=== PATIENT | female | born 1950 | race Caucasian/White ===

== ENCOUNTER 2018-05-11 07:52 | Emergency (ER) | payer MEDICARE, OTHER ==
[~2018-05-11] VITALS: Ht 147.3 cm; Wt 106.1 kg
[~2018-05-11 07:52] MED LIST: ALBIPROI INH; ALBU3IS; ALBU3IS INH; ALBU90OI INH; CEPH500 PO; CINA30 PO; CLOBET30L TOP; CYAN100 PO; Culturelle1 CAP PO; DIPH50 PO; DOCU100 PO; ESOM20 PO; FERR325 PO; FLUSAL5005 IH; GLIM2 PO; GLIM4 PO; HYDACE5 PO; HYDR-86 PO; HYDR1TAB94 PO; INSDET100 SQ; INSR10I SC; INSUASPI; INSUASPI SC; LEVSOD75 PO; LOPE2C PO; MAGCHL64ER PO; METF500 PO; METF500C PO; METO5 PO; NYST100TC TOP; OMEP40CA12 PO; PENVK500 PO; Percocet 5-3251 EACH PO; Percocet 7.5-31 EACH PO; SENN187 PO; SIMV40 PO; SIMV80 PO; SULTRIDS PO; Ultram50 MG PO; VALS80 PO; VICODIN 5-3001 EACH PO
[2018-05-11 10:07] LABS: BASOPHILS ABSOLUTE AUTO 0.04 K/mm3 (0.00-0.23); BASOPHILS PERCENT AUTO 0 % (0-2); EOSINOPHILS ABSOLUTE AUTO 0.06 K/mm3 (0.00-0.68); EOSINOPHILS PERCENT AUTO 1 % (0-6); Hematocrit 53.1 % (33.0-51.0); Hemoglobin 15.2 g/dL (11.5-16.0); IMMATURE GRAN ABSOLUTE AUTO 0.07 K/mm3 (0.00-0.10); IMMATURE GRAN PERCENT AUTO 1 % (0-1); LYMPHOCYTES PERCENT AUTO 5 % (21-46); MONOCYTES PERCENT AUTO 9 % (4-13); Mean Corpuscular HGB 25.7 pg (26.0-34.0); Mean Corpuscular HGB Conc 28.6 g/dL (31.5-36.5); Mean Corpuscular Volume 90 fL (80-100); Mean Platelet Volume 10.9 fL (9.1-12.4); NEUTROPHILS ABSOLUTE AUTO 10.88 K/mm3 (1.96-9.15); NEUTROPHILS PERCENT AUTO 85 % (41-73); Platelet Count 256 K/mm3 (150-400); RDW Coefficient Variation 16.3 % (11.7-14.2); RDW Standard Deviation 53.5 fL (35.1-46.3); Red Blood Cell Count 5.91 M/mm3 (3.80-5.20); White Blood Cell Count 12.75 K/mm3 (4.00-11.30)
[2018-05-11 10:25] LABS: Alanine Aminotransfer (ALT/SGP 11 U/L (12-78); Albumin, Blood 2.4 g/dL (3.4-5.0); Albumin/Globulin Ratio 0.6 (0.8-1.8); Alk Phos 107 U/L (50-136); Anion Gap 6 mmol/L (6-16); Aspartate Aminotrans (AST/SGOT 18 U/L (12-37); Bilirubin, Total 1.3 mg/dL (0.1-1.0); Blood Urea Nitrogen 12 mg/dL (8-24); Bun/Creatinine Ratio 14.5 (12.0-20.0); CO2, Blood 31 mmol/L (21-32); Calcium, Blood 9.2 mg/dL (8.5-10.1); Chloride, Blood 101 mmol/L (98-108); Creatinine, Blood 0.83 mg/dL (0.40-1.00); Globulin, Blood 4.3 g/dL (2.2-4.0); Glomerular Filtration Rate >60 (60-); Glucose, Blood 130 mg/dL (70-99); Potassium, Blood 4.4 mmol/L (3.5-5.5); Sodium, Blood 138 mmol/L (136-145); Total Protein, Blood 6.7 g/dL (6.4-8.2)
[2018-05-11] MEDS ORDERED: CEPH500 PO (11:52)
[2018-05-12] MEDS ORDERED: **INCOMPLETE MED REC (18:05)
[2018-05-12] MEDS ORDERED: Aspirin EC81 MG PO (18:47)
[2018-05-12] MEDS ORDERED: CEPH500 PO (18:51)
[2018-05-12] MEDS ORDERED: CHOL10002 PO (18:52)
[2018-05-12] MEDS ORDERED: FLUT1DIS8 INH (18:59)
[2018-05-12] MEDS ORDERED: HYDR-86 PO (19:11)
[2018-05-12] MEDS ORDERED: Hydrocortisone28 G1 TOP (19:13)
[2018-05-12] MEDS ORDERED: PANT40 PO (19:14)
[2018-05-12] MEDS ORDERED: MONT10T PO (19:16)
[2018-05-12] MEDS ORDERED: ALBU90OI61 INH (19:17)
[2018-05-12] MEDS ORDERED: Nystop60 GM TOP (19:19)
[2018-05-12] MEDS ORDERED: ALBU2.5V5 NEB (19:21)
[2018-05-12] MEDS ORDERED: BENZ100A PO (19:22)
[2018-05-12] MEDS ORDERED: LEVEMIR FL100 UNIT/1 SC (19:23)
[2018-05-12] MEDS ORDERED: INSDET100 PO (19:24)
[2018-05-12] MEDS ORDERED: Humalog100 UNIT/1 SC (19:24)
[2018-05-12] MEDS ORDERED: VITAMIN B-125000 MC2 PO (19:26)
== END 2018-05-11 14:09 | disposition home or self-care (01) ==
LOC: ER 07:52
PROVIDERS: Emergency Medicine
DX: M25.562 Pain in left knee (principal); L89.152 Pressure ulcer of sacral region, stage 2; S91.302A Unspecified open wound, left foot, initial encounter; S91.301A Unspecified open wound, right foot, initial encounter; I87.8 Other specified disorders of veins; L03.312 Cellulitis of back [any part except buttock and flank]; W05.0XXA Fall from non-moving wheelchair, initial encounter; E11.9 Type 2 diabetes mellitus without complications; J44.9 Chronic obstructive pulmonary disease, unspecified; I10 Essential (primary) hypertension; I50.9 Heart failure, unspecified; E03.9 Hypothyroidism, unspecified; Z88.1 Allergy status to other antibiotic agents; Z91.048 Other nonmedicinal substance allergy status; Z79.899 Other long term (current) drug therapy; Z79.82 Long term (current) use of aspirin; Z79.4 Long term (current) use of insulin
CPT/HCPCS: 36415; 72100; 72193; 73562-LT; 80053; 85025; 99284-25; Q9967

== ENCOUNTER 2018-05-12 15:15 | Observation (INO) | payer MEDICARE, OTHER ==
[~2018-05-12] VITALS: Ht 149.9 cm; Wt 112.0 kg
[2018-05-12] MEDS ORDERED: **INCOMPLETE MED REC (18:05)
[2018-05-12] MEDS ORDERED: Aspirin EC81 MG PO (18:47)
[2018-05-12] MEDS ORDERED: CEPH500 PO (18:51)
[2018-05-12] MEDS ORDERED: CHOL10002 PO (18:52)
[2018-05-12] MEDS ORDERED: FLUT1DIS8 INH (18:59)
[2018-05-12] MEDS ORDERED: HYDR-86 PO (19:11)
[2018-05-12] MEDS ORDERED: Hydrocortisone28 G1 TOP (19:13)
[2018-05-12 19:14] LABS: BASOPHILS ABSOLUTE AUTO 0.02 K/mm3 (0.00-0.23); BASOPHILS PERCENT AUTO 0 % (0-2); EOSINOPHILS ABSOLUTE AUTO 0.36 K/mm3 (0.00-0.68); EOSINOPHILS PERCENT AUTO 4 % (0-6); Hematocrit 48.7 % (33.0-51.0); Hemoglobin 14.3 g/dL (11.5-16.0); IMMATURE GRAN ABSOLUTE AUTO 0.04 K/mm3 (0.00-0.10); IMMATURE GRAN PERCENT AUTO 0 % (0-1); LYMPHOCYTES ABSOLUTE AUTO 0.63 K/mm3 (0.84-5.20); LYMPHOCYTES PERCENT AUTO 6 % (21-46); MONOCYTES ABSOLUTE AUTO 0.93 K/mm3 (0.16-1.47); MONOCYTES PERCENT AUTO 9 % (4-13); Mean Corpuscular HGB 25.4 pg (26.0-34.0); Mean Corpuscular HGB Conc 29.4 g/dL (31.5-36.5); Mean Platelet Volume 10.3 fL (9.1-12.4); NEUTROPHILS ABSOLUTE AUTO 8.19 K/mm3 (1.96-9.15); NEUTROPHILS PERCENT AUTO 81 % (41-73); Platelet Count 229 K/mm3 (150-400); RDW Coefficient Variation 16.6 % (11.7-14.2); RDW Standard Deviation 50.6 fL (35.1-46.3); Red Blood Cell Count 5.62 M/mm3 (3.80-5.20); White Blood Cell Count 10.17 K/mm3 (4.00-11.30)
[2018-05-12] MEDS ORDERED: PANT40 PO (19:14)
[2018-05-12] MEDS ORDERED: MONT10T PO (19:16)
[2018-05-12 19:17] LABS: Mean Corpuscular Volume 87 fL (80-100)
[2018-05-12] MEDS ORDERED: ALBU90OI61 INH (19:17)
[2018-05-12] MEDS ORDERED: Nystop60 GM TOP (19:19)
[2018-05-12] MEDS ORDERED: ALBU2.5V5 NEB (19:21)
[2018-05-12] MEDS ORDERED: BENZ100A PO (19:22)
[2018-05-12] MEDS ORDERED: LEVEMIR FL100 UNIT/1 SC (19:23)
[2018-05-12] MEDS ORDERED: Humalog100 UNIT/1 SC (19:24)
[2018-05-12] MEDS ORDERED: INSDET100 PO (19:24)
[2018-05-12] MEDS ORDERED: VITAMIN B-125000 MC2 PO (19:26)
[2018-05-12 19:42] LABS: Alanine Aminotransfer (ALT/SGP 12 U/L (12-78); Albumin, Blood 2.3 g/dL (3.4-5.0); Albumin/Globulin Ratio 0.5 (0.8-1.8); Alk Phos 94 U/L (50-136); Anion Gap 4 mmol/L (6-16); Aspartate Aminotrans (AST/SGOT 15 U/L (12-37); Blood Urea Nitrogen 11 mg/dL (8-24); Bun/Creatinine Ratio 14.9 (12.0-20.0); CO2, Blood 33 mmol/L (21-32); Calcium, Blood 8.6 mg/dL (8.5-10.1); Chloride, Blood 99 mmol/L (98-108); Creatinine, Blood 0.74 mg/dL (0.40-1.00); Globulin, Blood 4.2 g/dL (2.2-4.0); Glomerular Filtration Rate >60 (60-); Glucose, Blood 109 mg/dL (70-99); Magnesium, Blood 1.7 mg/dL (1.6-2.4); Potassium, Blood 4.3 mmol/L (3.5-5.5); Sodium, Blood 136 mmol/L (136-145); Total Protein, Blood 6.5 g/dL (6.4-8.2)
[2018-05-13 04:53] LABS: Hematocrit 49.4 % (33.0-51.0); Hemoglobin 13.8 g/dL (11.5-16.0); Mean Corpuscular HGB Conc 27.9 g/dL (31.5-36.5); Mean Platelet Volume 10.3 fL (9.1-12.4); Platelet Count 216 K/mm3 (150-400); RDW Coefficient Variation 16.1 % (11.7-14.2); RDW Standard Deviation 53.1 fL (35.1-46.3); Red Blood Cell Count 5.51 M/mm3 (3.80-5.20); White Blood Cell Count 8.82 K/mm3 (4.00-11.30)
[2018-05-13 05:03] LABS: Mean Corpuscular Volume 90 fL (80-100)
[2018-05-13 05:17] LABS: Anion Gap 4 mmol/L (6-16); Blood Urea Nitrogen 11 mg/dL (8-24); Bun/Creatinine Ratio 15.8 (12.0-20.0); CO2, Blood 34 mmol/L (21-32); Calcium, Blood 8.9 mg/dL (8.5-10.1); Chloride, Blood 103 mmol/L (98-108); Glomerular Filtration Rate >60 (60-); Glucose, Blood 99 mg/dL (70-99); Potassium, Blood 4.4 mmol/L (3.5-5.5); Sodium, Blood 141 mmol/L (136-145)
--- NOTE | 2018-05-13 07:32 | NUR ---
stated she did not want to be here, call light in reach, saline locked, 4L via [place], walking ronds completed with day shift
--- NOTE | 2018-05-13 08:24 | NUR ---
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 WILL ATTEMPT TO REPOSITION AFTER BREAKFAST.
--- NOTE | 2018-05-13 09:00 | NUR ---
PT REFUSING TURNS AND REPOSITIONING OTHER THAN PULLING HER UP IN BED. REFUSING PILLOWS TO BE PLACED UNDER LEFT OR RIGHT SIDE; REFUSING USE OF LIFT. WILL CONTINUE TO ATTEMPT TO ENCOURAGE ACTIVITY.
--- NOTE | 2018-05-13 17:33 | NUR ---
PT REFUSED POSITION CHANGE. ABLE TO GET A PILLOW UNDER ONE LEG. PT TEACHING ABOUT IMPORTANCE OF CHANGING POSITION TO PREVENT FURTHER PROGRESS OF DECUBITUS. PT AGAIN DECLINED TO BE MOVED.
--- NOTE | 2018-05-13 18:14 | NUR ---
SHIFT SUMMARY OX3; MORBID OBESITY. REFUSING TURNS AT TIMES. INCONTINENT. DECUBITUS TO SACRUM MEPILEX IN PLACE. EATING AND DRINKING WELL INDEPENDENTLY. LYMPHADEMA AND CELLULITIS TO BLE. CBG'S AC AND HS. AWAITING POSSIBLE SNIF PLACEMENT.
--- NOTE | 2018-05-14 05:36 | NUR ---
PT CHANGED AND CLEANED. PT REPOSITIONED. PT COMPLAINED OF BACK PAIN DURING ATTENDS CHANGE AND REPOSITIONING.
--- NOTE | 2018-05-14 07:25 | NUR ---
a+o grummpy, took medication as directed, pain controlled with medication as much as possible, call light is in reach, 3L via nc, walking rounds completed with returning day staff
--- NOTE | 2018-05-14 17:03 | NUR ---
Liberty firmly believs she will heal from her illness. She recently lost her care-provider who was her best-friend due to argument. "She was not taking very good care of me." Liberty admits that some ADLs are becoming difficult for her. She continues to cook for herself, "but I keep burning myself because the stove is too high for me." She is active in her jaspreet community, but guards her solitude and privacy. She speaks to her son occasionally, but he has not seen his mom for 18 years. This is a source of dissapointment for her. She tells me she is "sick" of people telling her what she needs to do, but is considering moving to [facility], "But its MY idea." She is fiercly independant. She appeared to enjoy companionship and prayer. I placed a T/C to her jehovah's witness at her request. They are availbale to support her emotionally/spiritually. Liberty travels to [facility] 2x weekly for treatment. She does not mind this as it gives her something to do. She appears to have accepted her limitations. Coding Compliance Auditor services will remain available.
--- NOTE | 2018-05-14 18:35 | NUR ---
SHIFT SUMMARY OX3; DROWSY AT TIMES BUT EASILY AROUSED BY VERBAL STIMULI. REFUSES ATTENDS CHANGE AND POSITION CHANGES INTERMITTENTLY. MULTIPLE SKIN FOLDS TO BREAST AND AXILLA, PANUS WITH RAW/REDNESS NYSTATIN APPLIED. NEW MEPILEX APPLIED TO SACRUM. STRICT TURN Q2 DUE TO DECUBITUS ULCER TO SACRUM. DRSG CHANGE COMPLETED TO BLE. NEW PICTURES PLACED IN CHART. EATING AND DRINKING WELL. NO SLIDING SCALE COVERAGE NEEDED THIS SHIFT. POSSIBLE PLACEMENT TOMORROW.
--- NOTE | 2018-05-15 07:54 | NUR ---
a+o, wants own way, conceded she may have to go to [facility], zana locked, 2L via [place], call light in reach, walking rounds completed with day shift
--- NOTE | 2018-05-15 07:57 | NUR ---
CARE MANAGEMENT ADVISED PATIENT WILLING TO GO TO [place].
--- NOTE | 2018-05-15 10:09 | NUR ---
TALKED TO ABOUT BLD SUGAR OF 82 . STS GIVE 40 UNITS OF LANTUS INSTEAD OF 60 UNITS.
--- NOTE | 2018-05-15 11:59 | NUR ---
BLD SUGAR 76, PATIENT SLEEPY. GIVEN O.J. WHICH SHE DRINKS 8 OZ. ALSO GIVEN PEANUT BUTTER AND CRACKERS X 3 AND CHEESE AND CRACKERS X 2. PATIENT EATTING RN LEAVES ROOM.
[2018-05-15] MEDS ORDERED: ACET325 PO (16:46)
[2018-05-15] MEDS ORDERED: LISI5 PO (16:47)
[2018-05-15] MEDS ORDERED: DOCU100 PO (16:47)
[2018-05-15] MEDS ORDERED: LEVSOD75 PO (16:47)
[2018-05-15] MEDS ORDERED: Bactrim Ds Tab1 EACH PO (16:48)
[2018-05-15] MEDS ORDERED: SIMV40 PO (16:48)
--- NOTE | 2018-05-15 17:23 | NUR ---
RE[facility]. ANSWER ALL QUESTIONS. [facility] TO COME AT 1830 TO TRANSPORT UNLESS OUT ON A CALL THEN WILL BE LATER.
--- NOTE | 2018-05-15 17:26 | NUR ---
UNNA BOOTS NOT CHANGED TODAY WERE PUT ON YESTERDAY. YEAST UNDER BILATERAL BREAST LOOK BETTER THAN PICS. VERY LITTLE YEAST GROIN FOLDS. YEAST BILATERAL UNDER LATERAL PANUS ALSO LOOK BETTER THAN PIC. BUS MATRON FROM YESTERDAY ALSO CONFIRMS LOOKS BETTER. PRESS INJURIES TO BILATERAL BUTTOCK CHEEKS LOOKS BETTER THAN PIC.
--- NOTE | 2018-05-15 18:34 | NUR ---
USED CEILING LIFT TO GET PATIENT INTO W/C AT 1830. OUT THE DOOR AT 1834.
== END 2018-05-15 18:33 ==
LOC: ER 15:15 → MEDS 15:16
PROVIDERS: Nurse Practitioner Acute Care; ADMIT Family Medicine
DX: E66.2 Morbid (severe) obesity with alveolar hypoventilation (principal); J44.9 Chronic obstructive pulmonary disease, unspecified; I13.0 Hypertensive heart and chronic kidney disease with heart failure and stage 1 through stage 4 chronic kidney disease, or unspecified chronic kidney disease; E11.22 Type 2 diabetes mellitus with diabetic chronic kidney disease; I50.9 Heart failure, unspecified; N18.9 Chronic kidney disease, unspecified; L89.892 Pressure ulcer of other site, stage 2; E03.9 Hypothyroidism, unspecified; F45.8 Other somatoform disorders; K21.9 Gastro-esophageal reflux disease without esophagitis; Z86.718 Personal history of other venous thrombosis and embolism; Z99.89 Dependence on other enabling machines and devices; Z79.4 Long term (current) use of insulin; Z86.73 Personal history of transient ischemic attack (TIA), and cerebral infarction without residual deficits; Z79.899 Other long term (current) drug therapy; Z79.82 Long term (current) use of aspirin; Z88.1 Allergy status to other antibiotic agents; Z91.048 Other nonmedicinal substance allergy status
CPT/HCPCS: 36415; 71045; 80048; 80053; 82947; 83735; 84443; 85025; 85027; 94640; 94760; 96372; 97110; 97161; 97166; 97530; 99284; G0378; J1650

== ENCOUNTER 2018-06-21 00:24 | Emergency (ER) | payer MEDICARE, OTHER ==
[~2018-06-21] VITALS: Ht 147.3 cm; Wt 104.3 kg
[~2018-06-21 00:24] MED LIST changes: +**INCOMPLETE MED REC; +ACET325 PO; +ALBU2.5V5 NEB; +ALBU90OI61 INH; +Aspirin EC81 MG PO; +BENZ100A PO; +Bactrim Ds Tab1 EACH PO; +CHOL10002 PO; +FLUT1DIS8 INH; +Humalog100 UNIT/1 SC; +Hydrocortisone28 G1 TOP; +INSDET100 PO; +LEVEMIR FL100 UNIT/1 SC; +LISI5 PO; +MONT10T PO; +Nystop60 GM TOP; +PANT40 PO; +VITAMIN B-125000 MC2 PO
== END 2018-06-21 01:13 | disposition home or self-care (01) ==
LOC: ER 00:24
DX: K59.00 Constipation, unspecified (principal); I13.0 Hypertensive heart and chronic kidney disease with heart failure and stage 1 through stage 4 chronic kidney disease, or unspecified chronic kidney disease; N18.9 Chronic kidney disease, unspecified; I50.9 Heart failure, unspecified; E11.9 Type 2 diabetes mellitus without complications; J44.9 Chronic obstructive pulmonary disease, unspecified; E03.9 Hypothyroidism, unspecified; G47.33 Obstructive sleep apnea (adult) (pediatric); E66.01 Morbid (severe) obesity due to excess calories; Z88.1 Allergy status to other antibiotic agents; Z91.048 Other nonmedicinal substance allergy status; Z79.899 Other long term (current) drug therapy; Z79.82 Long term (current) use of aspirin; Z79.4 Long term (current) use of insulin; Z86.73 Personal history of transient ischemic attack (TIA), and cerebral infarction without residual deficits; Z68.42 Body mass index [BMI] 45.0-49.9, adult
CPT/HCPCS: 99283

== ENCOUNTER 2018-10-03 19:05 | Observation (INO) | payer MEDICARE, OTHER ==
[~2018-10-03] VITALS: Ht 147.3 cm; Wt 96.0 kg
[~2018-10-03 19:05] MED LIST changes: -Aspirin EC81 MG PO; -VITAMIN B-125000 MC2 PO; +Vitamin B-121000 MCG PO
[2018-10-03] MEDS ORDERED: ALBU3IS INH (19:53)
[2018-10-03] MEDS ORDERED: ANTI-ITCH 2%-0.35 GM TOP (19:53)
[2018-10-03] MEDS ORDERED: GABA600 PO (19:54)
[2018-10-03] MEDS ORDERED: Flonase 0.05% N16 GM (19:54)
[2018-10-03] MEDS ORDERED: Hydrocortiso453.6 G3 TOP (19:58)
[2018-10-03] MEDS ORDERED: INSDET100 SC (19:59)
[2018-10-03] MEDS ORDERED: MAG6464 MG PO (20:00)
[2018-10-03] MEDS ORDERED: CINA30 PO (20:03)
[2018-10-03] MEDS ORDERED: NYSTRIT TOP (20:10)
[2018-10-03] MEDS ORDERED: Mupirocin22 GM TOP (20:11)
[2018-10-03] MEDS ORDERED: (None)15 GM TOP (20:13)
[2018-10-03] MEDS ORDERED: Lisinopril2.5 MG PO (20:13)
[2018-10-03 20:14] LABS: BASOPHILS ABSOLUTE AUTO 0.03 K/mm3 (0.00-0.23); BASOPHILS PERCENT AUTO 0 % (0-2); EOSINOPHILS ABSOLUTE AUTO 0.43 K/mm3 (0.00-0.68); EOSINOPHILS PERCENT AUTO 3 % (0-6); Hemoglobin 13.8 g/dL (11.5-16.0); IMMATURE GRAN ABSOLUTE AUTO 0.05 K/mm3 (0.00-0.10); IMMATURE GRAN PERCENT AUTO 0 % (0-1); LYMPHOCYTES PERCENT AUTO 8 % (21-46); MONOCYTES ABSOLUTE AUTO 1.32 K/mm3 (0.16-1.47); MONOCYTES PERCENT AUTO 10 % (4-13); Mean Corpuscular HGB Conc 32.1 g/dL (31.5-36.5); Mean Corpuscular Volume 97 fL (80-100); Mean Platelet Volume 10.4 fL (9.1-12.4); NEUTROPHILS ABSOLUTE AUTO 11.01 K/mm3 (1.96-9.15); NEUTROPHILS PERCENT AUTO 79 % (41-73); Platelet Count 274 K/mm3 (150-400); RDW Coefficient Variation 13.5 % (11.7-14.2); RDW Standard Deviation 47.9 fL (35.1-46.3); Red Blood Cell Count 4.45 M/mm3 (3.80-5.20); White Blood Cell Count 13.94 K/mm3 (4.00-11.30)
[2018-10-03 20:32] LABS: Alanine Aminotransfer (ALT/SGP 25 U/L (12-78); Albumin, Blood 2.9 g/dL (3.4-5.0); Albumin/Globulin Ratio 0.7 (0.8-1.8); Alk Phos 111 U/L (50-136); Anion Gap 5 mmol/L (6-16); Aspartate Aminotrans (AST/SGOT 26 U/L (12-37); Blood Urea Nitrogen 17 mg/dL (8-24); Bun/Creatinine Ratio 24.7 (12.0-20.0); CO2, Blood 28 mmol/L (21-32); Calcium, Blood 10.1 mg/dL (8.5-10.1); Chloride, Blood 103 mmol/L (98-108); Creatinine, Blood 0.69 mg/dL (0.40-1.00); Globulin, Blood 4.3 g/dL (2.2-4.0); Glomerular Filtration Rate >60 (60-); Glucose, Blood 150 mg/dL (70-99); Potassium, Blood 3.8 mmol/L (3.5-5.5); Sodium, Blood 136 mmol/L (136-145); Total Protein, Blood 7.2 g/dL (6.4-8.2)
--- NOTE | 2018-10-04 04:58 | NUR ---
PATIENT IS REFUSING TO LET CREASING MACHINE OPERATOR CHANGE HER ATTENDS AND BE REPOSITIONED. PATIENT WAS MAD THAT I WAS CHECKING HER VITALS.
--- NOTE | 2018-10-04 05:01 | NUR ---
SHIFT SUMMARY PT ADMITTED FOR DECUBITAL ULCER ON SACRUM AREA. ALSO HAS MULTIPLE WOUNDS BLE'S. PT NON-COMPLIANT AT HOME, LIVES ALONE AND UNABLE TO CARE FOR SELF. PT REFUSING TO TRANSFER FROM ER BED TO HOSPITAL BED AT FIRST, BUT TOLD SHE HAD TO. PT ABSOLUTELY REFUSING TO LET STAFF TURN HER AND LOOK AT SACRUM, OR EVEN LET STAFF TAKE EXTRA SHEETS FROM UNDER HER FROM TRANSFER TO BED. PT HAS CAM BOOTS ON BILAT WHICH SHE IS ALSO REFUSING TO TAKE OFF, STATING [facility] IS THE ONLY FACILITY THAT CAN DO THIS. UNABLE TO DO COMPLETE HEAD TO TOE ASSESSMENT DUE TO REFUSAL OF LETTING NURSE LOOK AT SKIN, LISTEN TO LUNG SOUNDS, ECT. CHARGE NURSE NOTIFIED. THIS AM PT ALSO REFUSED TO LET LAB DRAW BLOOD, KICKING THEM OUT OF ROOM. ALSO TOLD THE WOOD ROOM SUPERVISOR THAT IF SHE GETS HURTS DURING A BRIEF CHANGE THEY WILL BE KICKED OUT OF ROOM AND NOT TO COME BACK IN. PT REFUSING TO LET WOOD ROOM SUPERVISOR CHECK BRIEF THIS AM WELL. UPSET THAT SHE WAS WOKE UP FOR LABS AND VS. RELUCTANT TO TAKE AM MEDS THIS MORNING. NO ACUTE EVENTS NOTED OTHER THAN HER REFUSALS OF CARE. WILL CONTINUE TO MONITOR.
--- NOTE | 2018-10-04 06:19 | NUR ---
4 STAFF HAD TO GO IN AND INSIST ON LETTING US CHANGE PT ATTENDS. PT SCREAMING AND THREATENING TO HIT STAFF IF WE CHANGE HER. PT CHANGED WITH RESISTANCE OF A LARGE SOILED BRIEF. MEPILEX REPLACED ON COCCYX AND PICTURES TAKEN. PT ALSO BLEEDING FROM VAGINAL AREA. AREAS ALL CLEANSED AND BARRIER CREAM APPLIED. PT ADJUSTED IN BED AND WARM BLANKETS PROVIDED.
[2018-10-04 10:36] LABS: BASOPHILS ABSOLUTE AUTO 0.02 K/mm3 (0.00-0.23); BASOPHILS PERCENT AUTO 0 % (0-2); EOSINOPHILS ABSOLUTE AUTO 0.34 K/mm3 (0.00-0.68); EOSINOPHILS PERCENT AUTO 3 % (0-6); Hematocrit 40.1 % (33.0-51.0); Hemoglobin 12.9 g/dL (11.5-16.0); IMMATURE GRAN ABSOLUTE AUTO 0.05 K/mm3 (0.00-0.10); IMMATURE GRAN PERCENT AUTO 1 % (0-1); LYMPHOCYTES ABSOLUTE AUTO 0.93 K/mm3 (0.84-5.20); LYMPHOCYTES PERCENT AUTO 9 % (21-46); MONOCYTES ABSOLUTE AUTO 1.29 K/mm3 (0.16-1.47); MONOCYTES PERCENT AUTO 12 % (4-13); Mean Corpuscular HGB 30.6 pg (26.0-34.0); Mean Corpuscular HGB Conc 32.2 g/dL (31.5-36.5); Mean Corpuscular Volume 95 fL (80-100); Mean Platelet Volume 10.2 fL (9.1-12.4); NEUTROPHILS ABSOLUTE AUTO 8.25 K/mm3 (1.96-9.15); NEUTROPHILS PERCENT AUTO 76 % (41-73); Platelet Count 259 K/mm3 (150-400); RDW Coefficient Variation 13.6 % (11.7-14.2); RDW Standard Deviation 47.4 fL (35.1-46.3); Red Blood Cell Count 4.22 M/mm3 (3.80-5.20); White Blood Cell Count 10.88 K/mm3 (4.00-11.30)
--- NOTE | 2018-10-04 17:23 | NUR ---
PATIENT CONTINUES TO BE NONCOMPLIANT WITH CARE. ONLY WILLING TO HAVE BRIEF CHANGED ONCE THIS SHIFT. PATIENT SHOWN PICS OF BUTTOCKS AND IT WAS EXPLAINED TO HER THE IMPORTANCE OF KEEPING THAT AREA CLEAN AND DRY AND THE IMPORTANCE OF REPOSITIONING Q2 HOURS. PATIENT STILL REFUSED TO LET US CHANGE HER. CAM BOOTS TO BLE, PATIENT REFUSING TO HAVE THEM REMOVED FOR ASSESSMENT. DRESSING CHANGES AT [facility]. ACHS BLOOD SUGARS, TOLERATING DIET. PATIENT HAS BEEN VERY DEMANDING AND RUDE TO STAFF THIS SHIFT. CHANGED TO FULL CODE TODAY PER MD ORDER AND PATIENTS WISHES. PATIENT IS HOPING TO FIND PERMANENT PLACEMENT IN [place].
--- NOTE | 2018-10-05 05:28 | NUR ---
SHIFT SUMMARY PT HAS BEEN CHANGED X2 WITH MUCH RESISTANCE AND RUDENESS TOWARDS STAFF. ALSO THREATENING TO HIT STAFF IF THEY DON'T DO SHE SAYS. NO ACUTE EVENTS NOTED DURING THE NIGHT, WILL CONTINUE TO MONITOR.
--- NOTE | 2018-10-05 10:45 | NUR ---
PT REFUSED TURNING AND CHANGING THIS AM, REFUSED ASSESSMENT. PT EDUCATED ON THE IMPORTANCE OF AGREEING WITH CARE. PT STATE "I DON'T CARE, I DON'T WANT YOU TO DO IT". GIVEN PO 0900 MEDS WITH BREAKFAST TRAY, PT REFUSING TO TAKE THEM AT THIS TIME. STATES "JUST LEAVE THEM HERE AND I'LL DO WITH THEM WHAT I LIKE". WILL CTM
--- NOTE | 2018-10-05 18:05 | NUR ---
SUMMARY: NO ACUTE CHANGE TODAY, VSS, A/O. UNABLE TO DO FULL ASSESSMENT THIS AM, PT NON COMPLIANT. PT CONTINUES TO REFUSE CARE, OFFERED REPOSITIONING AND CHANGING TODAY AND PT DECLINED MOST OFTEN. ABLE TO CHANGE ATTEND X1 WITH PT REQUEST AND MEPILEX DRESSING CHANGED TO COCCYX. PT REFUSES TO HAVE PILLOWS ON BILAT HIPS. UNABLE TO ASSESS PT DRESSINGS AT BILAT ANKLES, PT REFUSED TO HAVE BOOTS TAKEN OFF. PT MADE AWARE OF RISKS OF REFUSING CARE, DR. MEJIA AWARE OF PT NON COMPLIANCE. WILL PASS REPORT TO NOC RN
--- NOTE | 2018-10-06 05:02 | NUR ---
SHIFT SUMMARY PT STILL REFUSING CARES AND IS VERY RESISTIVE WHEN CARES ARE BEING DONE, REQUIRING 4 STAFF TO DO CARES. PT YELLING AT AND THREATENING STAFF WHILE DOING DRESSING, BRIEF, AND BEDDING CHANGE. YELLING "GET OUT OF HERE IF YOU DON'T I'M GOING TO BLAST YOU." "I'M GOING TO BLOW UP." NO REDIRECTING PT AT ALL. WILL CONTINUE TO MONITOR AND ATTEMPT CARES.
--- NOTE | 2018-10-06 05:41 | NUR ---
Pt was refusing care from everybody, using profanity, threating to be combative, pt seemed to be having a behavior. 4 people went into the room to change her RUBI notified REEL HOOKER (me) to not ask pt if i can get her vitals because she would refuse, night three for the nurse having this patient. Pt was not my assigned patient originally, the circumstance was a little awkward.
--- NOTE | 2018-10-06 07:32 | NUR ---
PT. REFUSING VS, CBG, AND ASSESSMENT STATES "DON'T START WITH ME, JUST GET OUT OF HERE."
--- NOTE | 2018-10-06 10:19 | NUR ---
MARIBETH TRACY AND Flora RUDD CHANGED PT. ATTENDS SHE SCREAMED AND CURSED THEM AND BECAME COMBATIVE AND LASHED OUT AT BOTTLE GAUGER'S
--- NOTE | 2018-10-06 18:47 | NUR ---
NO CHANGES WITH PATIENT THIS SHIFT. HAS REFUSED ALL MEDS, VS. ALLOWED ONE CBG WHICH WAS 138. SENIOR MATERIALS PLANNER'S HAVE CHANGED HER SEVERAL TIMES TODAY. I CHANGED MEPILEX DRESSING AND CLEANED AREA WITH SKINTEGRITY. ESCHAR PRESENT ALONG PINK OPEN SKIN. PT WOUND ODIFOROUS. PT. YELLS AT STAFF AND IS VERBALLY ABUSIVE TO STAFF.
--- NOTE | 2018-10-06 19:52 | NUR ---
PT REFUSED TO HAVE IV FLUSHED
--- NOTE | 2018-10-07 07:35 | NUR ---
NOC SHIFT SUMMARY PT IS AAOX4 AND ABLE TO MAKE DESCISIONS. REFUSING CARE THIS NIGHT. REFUSES MEDICATIONS. I EXPLAINED TO HER THE REASONS FOR POSITION CHANGES AND THE NEED FOR MEDICATIONS AND MY ASSESMENT. PT STILL REFUSES. REFUSED POSITION CHANGE OR TO ALLOW ME TO ASSESS MEPILEX OR PRESSURE ULCER ON BOTTOM. PT APPEARS IN NO ACUTE DISTRESS. REPORT TO ONCOMING RN.
--- NOTE | 2018-10-07 20:01 | NUR ---
SUMMARY- PT ALERT AND ORINETED. DIRECTS CARE AND REFUSES MOST NURSING INTERVENTIONS. ALLOWED ATTEMPT AT VS THIS AM BUT BP CUFF INFLATED 2X AND PT REFUSED 2ND TRY. PT TURNED AND CHANGED INCONT 2X THIS SHIFT, WHEN STAFF INSISTED ON GETTING PT OFF INCONT ATTENDS AND CHECK BACKSIDE. MEPILEX REMAINS INTACT. DRESSING TO LE REMAIN INTACT. REFUSES ANYONE TO TAKE DRESSING DOWN FROM LE, STATES THAT ONLY THE DR CHANGES THAT DRESSING. CLEANSED FOLDS AND FOUND PINK EXCORIATION UNDER BREASTS, APPLIED CALLAZYME. TOLERATES FOOD AND FLUIDS, FEEDS SELF. MEDICATED ONCE THIS AM FOR BACK PAIN WITH STATED MIN RELEIF. REPORT TO VESNA PHELPS RN.
--- NOTE | 2018-10-08 04:44 | NUR ---
SHIFT SUMMARY: PT IS ALERT, AGITATED AND UNCOOPERATIVE WITH CARE. PT DID NOT USE HER CALL LIGHT OVERNIGHT. PT DID NOT GET OUT OF BED OVERNIGHT. PT INCONTINENT, CHANGED NEEDED, BECOMES VERY AGITATED. PT TO DC THIS AM. MEPILEX ON BUTTOCKS CHANGED. PT SLEPT MUCH OF THE NIGHT. PT DENIES PAIN, NAUSEA, VOMITING, AND SOB. NO ACUTE CHANGES. WILL CONTINUE TO MONITOR.
--- NOTE | 2018-10-08 07:28 | NUR ---
PATIENT REFUSING TO HAVE VITAL SIGNS TAKEN OR BLOOD SUGARS CHECKED. PATIENT REFUSING ATTENDS CHANGES. MEPILEX TO COCCYX CHANGED ON LAST SHIFT. PATIENT REFUSING TO ALLOW STAFF TO REASSESS DRESSING.
--- NOTE | 2018-10-08 11:30 | NUR ---
PATIENT D/C'D TO [facility] VIA MEDICAL GURNEY TRANSPORT. PATIENT IS BEING TRANSPORTED TO [facility] FOR AN APPT THIS AFTERNOON. ATTENDS CHANGED PRIOR TO D/C AND MEPILEX DRESSING TO BUTTOCKS REMAINS C/D/I. D/C INSTRUCTIONS AND EDUCATION DISCUSSED WITH PATIENT AND COPY PROVIDED.
== END 2018-10-08 11:43 | disposition home or self-care (01) ==
LOC: ER 19:05 → MEDS 19:06 → ENPENDDIS 10-08 07:18 → MEDS 10-08 11:43
PROVIDERS: Emergency Medicine; ADMIT Internal Medicine
DX: L89.329 Pressure ulcer of left buttock, unspecified stage (principal); L89.319 Pressure ulcer of right buttock, unspecified stage; L89.159 Pressure ulcer of sacral region, unspecified stage; S81.809A Unspecified open wound, unspecified lower leg, initial encounter; D72.829 Elevated white blood cell count, unspecified; I11.0 Hypertensive heart disease with heart failure; I50.9 Heart failure, unspecified; E11.9 Type 2 diabetes mellitus without complications; K21.9 Gastro-esophageal reflux disease without esophagitis; J44.9 Chronic obstructive pulmonary disease, unspecified; E03.9 Hypothyroidism, unspecified; G47.33 Obstructive sleep apnea (adult) (pediatric); E66.01 Morbid (severe) obesity due to excess calories; Z99.89 Dependence on other enabling machines and devices; Z99.81 Dependence on supplemental oxygen; Z91.048 Other nonmedicinal substance allergy status; Z88.1 Allergy status to other antibiotic agents; Z79.899 Other long term (current) drug therapy; Z79.4 Long term (current) use of insulin; Z79.82 Long term (current) use of aspirin; Z79.01 Long term (current) use of anticoagulants
CPT/HCPCS: 36415; 80053; 82947; 83036; 84443; 85025; 94640; 94760; 97162; 97166; 97535; 99284-25; G0378; J1650; J1815

== ENCOUNTER 2018-10-10 00:46 | Emergency (ER) | payer MEDICARE, OTHER ==
[~2018-10-10] VITALS: Ht 147.3 cm; Wt 78.9 kg
[~2018-10-10 00:46] MED LIST changes: +(None)15 GM TOP; +ANTI-ITCH 2%-0.35 GM TOP; +Flonase 0.05% N16 GM; +GABA600 PO; +Hydrocortiso453.6 G3 TOP; +INSDET100 SC; +Lisinopril2.5 MG PO; +MAG6464 MG PO; +Mupirocin22 GM TOP; +NYSTRIT TOP
== END 2018-10-10 03:04 | disposition home or self-care (01) ==
LOC: ER 00:46
DX: E66.01 Morbid (severe) obesity due to excess calories (principal); Z91.19 Patient's noncompliance with other medical treatment and regimen; J44.9 Chronic obstructive pulmonary disease, unspecified; I27.20 Pulmonary hypertension, unspecified; E11.9 Type 2 diabetes mellitus without complications; Z79.4 Long term (current) use of insulin; Z88.1 Allergy status to other antibiotic agents; Z91.048 Other nonmedicinal substance allergy status; Z79.899 Other long term (current) drug therapy; Z79.82 Long term (current) use of aspirin
CPT/HCPCS: 99283

== ENCOUNTER 2018-10-11 12:07 | Emergency (ER) | payer MEDICARE, OTHER ==
[~2018-10-11] VITALS: Ht 160 cm; Wt 90.7 kg
== END 2018-10-11 14:08 | disposition home or self-care (01) ==
LOC: ER 12:07
DX: L89.159 Pressure ulcer of sacral region, unspecified stage (principal); Z88.1 Allergy status to other antibiotic agents; Z91.048 Other nonmedicinal substance allergy status; Z79.899 Other long term (current) drug therapy; Z79.4 Long term (current) use of insulin; Z79.82 Long term (current) use of aspirin; E11.9 Type 2 diabetes mellitus without complications; J44.9 Chronic obstructive pulmonary disease, unspecified; I11.0 Hypertensive heart disease with heart failure; I50.9 Heart failure, unspecified
CPT/HCPCS: 99283; A9270

== ENCOUNTER 2018-10-12 14:10 | Emergency (ER) | payer MEDICARE, OTHER ==
[~2018-10-12] VITALS: Ht 147.3 cm; Wt 78.9 kg
== END 2018-10-12 21:40 | disposition home or self-care (01) ==
LOC: ER 14:10
DX: L89.312 Pressure ulcer of right buttock, stage 2 (principal); I11.0 Hypertensive heart disease with heart failure; I50.9 Heart failure, unspecified; E11.9 Type 2 diabetes mellitus without complications; J44.9 Chronic obstructive pulmonary disease, unspecified; G47.33 Obstructive sleep apnea (adult) (pediatric); E66.01 Morbid (severe) obesity due to excess calories; Z88.1 Allergy status to other antibiotic agents; Z91.048 Other nonmedicinal substance allergy status; Z79.899 Other long term (current) drug therapy; Z79.4 Long term (current) use of insulin; Z79.82 Long term (current) use of aspirin; Z86.718 Personal history of other venous thrombosis and embolism; Z68.36 Body mass index [BMI] 36.0-36.9, adult
CPT/HCPCS: 99283

== ENCOUNTER 2018-10-13 12:51 | Emergency (ER) | payer MEDICARE, OTHER ==
[~2018-10-13] VITALS: Ht 162.6 cm; Wt 136.1 kg
== END 2018-10-13 15:38 | disposition home or self-care (01) ==
LOC: ER 12:51
DX: L89.159 Pressure ulcer of sacral region, unspecified stage (principal); E11.621 Type 2 diabetes mellitus with foot ulcer; L97.519 Non-pressure chronic ulcer of other part of right foot with unspecified severity; L97.529 Non-pressure chronic ulcer of other part of left foot with unspecified severity; Z88.1 Allergy status to other antibiotic agents; Z91.048 Other nonmedicinal substance allergy status; Z79.899 Other long term (current) drug therapy; Z79.82 Long term (current) use of aspirin; J44.9 Chronic obstructive pulmonary disease, unspecified; E11.9 Type 2 diabetes mellitus without complications; I11.0 Hypertensive heart disease with heart failure; I50.9 Heart failure, unspecified; Z86.718 Personal history of other venous thrombosis and embolism
CPT/HCPCS: 99283

== ENCOUNTER 2018-10-14 18:58 | Emergency (ER) | payer MEDICARE, OTHER ==
[~2018-10-14] VITALS: Ht 165.1 cm; Wt 131.5 kg
== END 2018-10-14 21:00 | disposition home or self-care (01) ==
LOC: ER 18:58
DX: L89.159 Pressure ulcer of sacral region, unspecified stage (principal); I11.0 Hypertensive heart disease with heart failure; I50.9 Heart failure, unspecified; J44.9 Chronic obstructive pulmonary disease, unspecified; E11.9 Type 2 diabetes mellitus without complications; E66.01 Morbid (severe) obesity due to excess calories; G47.33 Obstructive sleep apnea (adult) (pediatric); Z79.4 Long term (current) use of insulin; Z88.1 Allergy status to other antibiotic agents; Z79.82 Long term (current) use of aspirin; Z79.899 Other long term (current) drug therapy
CPT/HCPCS: 99283

== ENCOUNTER 2018-10-18 12:17 | Inpatient (IN) | payer MEDICARE, OTHER ==
[~2018-10-18] VITALS: Ht 147.3 cm; Wt 94.4 kg
[2018-10-18 13:32] LABS: BASOPHILS ABSOLUTE AUTO 0.03 K/mm3 (0.00-0.23); BASOPHILS PERCENT AUTO 0 % (0-2); EOSINOPHILS ABSOLUTE AUTO 0.09 K/mm3 (0.00-0.68); EOSINOPHILS PERCENT AUTO 1 % (0-6); Hematocrit 43.8 % (33.0-51.0); Hemoglobin 14.3 g/dL (11.5-16.0); IMMATURE GRAN ABSOLUTE AUTO 0.14 K/mm3 (0.00-0.10); IMMATURE GRAN PERCENT AUTO 1 % (0-1); LYMPHOCYTES ABSOLUTE AUTO 0.89 K/mm3 (0.84-5.20); LYMPHOCYTES PERCENT AUTO 5 % (21-46); MONOCYTES ABSOLUTE AUTO 1.42 K/mm3 (0.16-1.47); MONOCYTES PERCENT AUTO 8 % (4-13); Mean Corpuscular HGB Conc 32.6 g/dL (31.5-36.5); Mean Corpuscular Volume 92 fL (80-100); Mean Platelet Volume 9.9 fL (9.1-12.4); NEUTROPHILS ABSOLUTE AUTO 16.25 K/mm3 (1.96-9.15); NEUTROPHILS PERCENT AUTO 86 % (41-73); Platelet Count 346 K/mm3 (150-400); RDW Coefficient Variation 12.7 % (11.7-14.2); RDW Standard Deviation 42.8 fL (35.1-46.3); Red Blood Cell Count 4.77 M/mm3 (3.80-5.20); White Blood Cell Count 18.82 K/mm3 (4.00-11.30)
[2018-10-18 13:51] LABS: Alanine Aminotransfer (ALT/SGP 16 U/L (12-78); Albumin, Blood 2.5 g/dL (3.4-5.0); Albumin/Globulin Ratio 0.5 (0.8-1.8); Alk Phos 131 U/L (50-136); Anion Gap 7 mmol/L (6-16); Aspartate Aminotrans (AST/SGOT 11 U/L (12-37); Bilirubin, Total 0.8 mg/dL (0.1-1.0); Blood Urea Nitrogen 13 mg/dL (8-24); CO2, Blood 27 mmol/L (21-32); Calcium, Blood 10.4 mg/dL (8.5-10.1); Chloride, Blood 99 mmol/L (98-108); Creatinine, Blood 0.52 mg/dL (0.40-1.00); Globulin, Blood 5.2 g/dL (2.2-4.0); Glomerular Filtration Rate >60 (60-); Glucose, Blood 115 mg/dL (70-99); Potassium, Blood 3.8 mmol/L (3.5-5.5); Sodium, Blood 133 mmol/L (136-145); Total Protein, Blood 7.7 g/dL (6.4-8.2)
[2018-10-18] MEDS ORDERED: ALBU3IS INH (16:23)
[2018-10-18] MEDS ORDERED: LISI5 PO (16:24)
[2018-10-18] MEDS ORDERED: MAGCHL64ER PO (16:26)
--- NOTE | 2018-10-18 17:00 | NUR ---
PT ARRIVED TO THE MEDICAL FLOOR FROM THE ER AROUND 1350, VIA STRETCHER A/OX3, COOPERATIVE, THE PTS COOCYX WOUND WAS CLEANED AND DRESSING MAYCO;IED, PHOTOS TAKEN, THE PT DID NOT ALLOW ANY OF THE STAFF TO ASSESS HER BILATERAL LE WOUNDS, SHE INSISTED THAT ONLY STAFF AT [facility] WAS ALLOWED TO REDRESS HE LE WOUNDS, ORTHO BOOTS WERE LEFT ON PER THE PTS REQUEST, THE PT WAS ORIENTED TO THE ROOM LAYOUT AND CALL SYSTEM, CALL LIGHT IN REACH,THE PT WAS MEDICATED FOR PAIN
--- NOTE | 2018-10-18 21:19 | NUR ---
PT REFUSED COMBINATION OF CREAMS RX'D TO ABDO SKIN FOLDS. SHE ALSO REPORTED PAIN 10/10 TO HER BUTTOCKS BUT REFUSED TYLENOL AND IT ISN'T TIME FOR PRN NARCOTIC YET. PT STATED SHE WAS "OK TO WAIT AND DIDN'T WANT ANY OTHER PAIN MEDS". WCTM.
--- NOTE | 2018-10-19 02:22 | NUR ---
PT REFUSING REPOSITIONING AND NEED FOR PAIN MEDS.
--- NOTE | 2018-10-19 04:27 | NUR ---
SUMMARY: PT IS A/O, HAS CONCRETE THINKING AND IS CONTANKEROUS W/CARE. SHE REFUSED REPOSITIOINING MOST OF NIGHT DESPITE ENCOURAGEMENT AND OCCASIONALLY ALLOWED GRADUAL SHIFTING OF HIPS. SHE ALSO WON'T ALLOW STAFF TO REMOVE BLE BOOTS TO OBSERVE WOUNDS, TAKE PICS OR COLLECT WOUND SPECIMENS. SHE SAID IT CAN BE DONE W/NEXT "BUTT BANDAID CHANGE". PT REFUSED NEEDING CREAMS TO ABDO FOLDS AND DENIED WANTING TYLENOL/NORCO PRN WHEN OFFERED T/O NOCTE DESPITE REPORTING 10/10 BUTTOCK PAIN. SHE IS W/C BOUND AT [facility] AND REQ'S LIFT OOB THOUGH THIS DIDN'T OCCUR THIS SHIFT. PT DOESN'T WEAR CPAP DESPITE HAVING DONALDO. NS INFUSES AT 125 ML/HR AND IV ABX WERE RECEIVED. VSS AND AFEBRILE W/BP IMPROVING THIS SHIFT AND NO ACUTE CHANGES. WCTM AND REPORT TO DAY RN.
--- NOTE | 2018-10-19 04:51 | NUR ---
PT REFUSED AM MEDS DESPITE ENCOURAGEMENT AND STILL WON'T ALLOW STAFF TO PROPERLY REPOSITION HER OFF OF HER BUTTOCKS.
[2018-10-19 05:03] LABS: BASOPHILS ABSOLUTE AUTO 0.03 K/mm3 (0.00-0.23); BASOPHILS PERCENT AUTO 0 % (0-2); EOSINOPHILS ABSOLUTE AUTO 0.35 K/mm3 (0.00-0.68); EOSINOPHILS PERCENT AUTO 2 % (0-6); Hematocrit 37.4 % (33.0-51.0); Hemoglobin 12.2 g/dL (11.5-16.0); IMMATURE GRAN ABSOLUTE AUTO 0.17 K/mm3 (0.00-0.10); IMMATURE GRAN PERCENT AUTO 1 % (0-1); LYMPHOCYTES ABSOLUTE AUTO 1.01 K/mm3 (0.84-5.20); LYMPHOCYTES PERCENT AUTO 7 % (21-46); MONOCYTES ABSOLUTE AUTO 1.53 K/mm3 (0.16-1.47); MONOCYTES PERCENT AUTO 10 % (4-13); Mean Corpuscular HGB 29.9 pg (26.0-34.0); Mean Corpuscular HGB Conc 32.6 g/dL (31.5-36.5); Mean Corpuscular Volume 92 fL (80-100); Mean Platelet Volume 9.7 fL (9.1-12.4); NEUTROPHILS ABSOLUTE AUTO 12.48 K/mm3 (1.96-9.15); NEUTROPHILS PERCENT AUTO 80 % (41-73); Platelet Count 320 K/mm3 (150-400); RDW Coefficient Variation 12.8 % (11.7-14.2); RDW Standard Deviation 42.9 fL (35.1-46.3); Red Blood Cell Count 4.08 M/mm3 (3.80-5.20); White Blood Cell Count 15.57 K/mm3 (4.00-11.30)
[2018-10-19 05:38] LABS: Anion Gap 6 mmol/L (6-16); Blood Urea Nitrogen 12 mg/dL (8-24); Bun/Creatinine Ratio 20.6 (12.0-20.0); CO2, Blood 28 mmol/L (21-32); Calcium, Blood 9.4 mg/dL (8.5-10.1); Chloride, Blood 102 mmol/L (98-108); Creatinine, Blood 0.58 mg/dL (0.40-1.00); Glomerular Filtration Rate >60 (60-); Glucose, Blood 85 mg/dL (70-99); Potassium, Blood 3.8 mmol/L (3.5-5.5); Sodium, Blood 136 mmol/L (136-145)
--- NOTE | 2018-10-19 16:29 | NUR ---
PATIENT REFUSES TO BE TURNED OR CHANGED THROUGHOUT THE DAY. THIS TIME WE TOLD HER WE NEED TO BECAUSE IT HAS BEEN TOO LONG. SHE LET US BUT WAS YELLING AND BEING DEMANDING/RUDE BEHAVIOR.
--- NOTE | 2018-10-19 19:37 | NUR ---
SHIFT SUMMARY PT AWAKE DURING SHIFT REPORT. INCONTINENT OF URINE AND WANTING ASSIST WITH HAVING A BM. EXTRA LRG BM AT START OF SHIFT. WOUNDS TO BUTTOCKS AND COCCYX; DRSG'S CHANGED WHEN CLEANING PT UP. PT WITH WOUNDS TO BL FEET WELL WITH BOOTS IN PLACE. PT REFUSING TO ALLOW BOOTS REMOVED TO ASSESS WOUNDS. PT REPORTED THAT SHE HAS AN APPOINTMENT AT [facility] ON TO HAVE DRSG'S CHANGED. PT IS VERY NONCOMPLIANT WITH CARE. REFUSES TO BE REPOSITIONED NEEDED TO KEEP OFF BUTTOCKS. WILL NOT ALLOW US TO TURN TO L SIDE EVER. WILL NOT TAKE MEDICATIONS THAT SHE DOES NOT WANT TO. COMPLAINS CONSTANTLY ABOUT MEALS, EVEN THOUGH SHE MAKES THE CHOICES AND DIETARY EVEN VISITED WITH PT AND PUT IN FOR SPECIAL REQUESTS THAT PT STATED SHE WOULD EAT. CBG'S HAVE BEEN WNL'S ALL DAY. DR ARROYO DECREASED LANTUS FOR AM AND PM, BUT CBG STILL LOW AT DINNER. DR ARROYO NOTIFIED AND ORDER CHANGED TO HOLD LANTUS FOR TONIGHT. MEDICATED FOR C/O PAIN THIS AM, BUT DENIED NEEDING ANYTHING FURTHER. CALL LT IN REACH.
--- NOTE | 2018-10-19 19:55 | NUR ---
Review of patient with nursing. patient refusing many levles of care and staff struggling with getting her to take medications. Met with patient we had vibrant conversation regarding her plan of care. Patient states she will agree to care at [facility] but will only go to [facility] for care. Body language very guarded and pt grimacing, avoids direct eye contact. Pt pulls up blanket when I entered room, Tries to divert conversation and argue looks frearful. Did not allow patient to dominate conversation noted body language and switched conversation to her mental and emotion stress and suffering. Acknowleged her stress and fear and suffering and confronted her on staying stuck. Suggested that our services are to help stop the spiral she is stuck in and attempt to protect her from suffering. Advised her [facility] will not see her every week and that the dressing from there are not special. From her response when I came in room possible startle response may fear being touched or out of control and handled by hola. pt affect possibly more fearful than angry. Reenforced that she has rights but will not indulge her behaviours. Carefully reenforced that we will continue to participate in her care and try to help her with accepting care that is safe and reasonable and in her best interest for quality of life. Advised her that we will be back and have repeated discussion on allowing care to her wounds and ADLs. Suggest maybe female only caregivers and entering room slowly.
--- NOTE | 2018-10-20 04:13 | NUR ---
ATTENDS AND LINEN CHANGED FOR URINARY INCONTINENCE. MEPILEX DX'S SATURATED W/URINE AND CHANGED AT THIS TIME. WOUND WAS CLEANSED W/SKINTEGRITY AND PRACHI AREA CLEANED W/SOAP AND WATER. POWDER APPLIED TO GROIN, PRACHI AREA AND ABDO FOLDS. PT MEDICATED W/PRN NORCO, AWAITING EFFECT.
--- NOTE | 2018-10-20 05:11 | NUR ---
SUMMARY: PT CONT'S CONTANKEROUS AND MOSTLY NONCOMPLIANT W/CARE AND TX PLAN. SHE REFUSES MANY MEDS AND WON'T ALLOW STAFF TO ASSESS/CHANGE BLE DX'S DESPITE ENCOURAGEMENT. BOOTS TO LEGS REMAIN INTACT W/LEGS ELEVATED ON PILLOWS PER PT REQUEST. SHE OFTEN RESISTS REPOSITIONING BUT GRADUAL SHIFTING OF HIPS WAS ATTENDED TO. LINEN AND ATTENDS WERE CHANGED D/T SATURATION W/URINE. WOUND TO BUTTOCKS WAS CLEANSED W/SKINTEGRITY AND NEW MEPILEX DX'S WERE APPLIED AT THIS TIME. NORCO PRN WAS RECIEVED AFTER THIS CARE BUT SHE REFUSED NEEDING PAIN MEDS OTHERWISE. CHEMBG WAS 74 AT HS BUT SHE REFUSED TO EAT OR DRINK ANYTHING FOR HYPOGLYCEMIA PREVENTION, AM LABS ARE PENDING. WOUND CX AND PHOTOS STILL HAVEN'T BEEN OBTAINED D/T NONCOMPLIANCE AND PT ADMITS THAT SHE SITS IN W/C AT HOME EVEN WHEN SOILED AND UNABLE TO SELF CARE. SHE DENIED NEEDING IN HOME CAREGIVERS DESPITE INABILITY TO PERFORM ADL'S. NO ACUTE CHANGES, VSS/AFEBRILE. IVF INFUSING AND ABX RECEIVED. WCTM/REPORT TO DAY RN.
[2018-10-20 05:20] LABS: BASOPHILS ABSOLUTE AUTO 0.04 K/mm3 (0.00-0.23); BASOPHILS PERCENT AUTO 0 % (0-2); EOSINOPHILS ABSOLUTE AUTO 0.54 K/mm3 (0.00-0.68); EOSINOPHILS PERCENT AUTO 4 % (0-6); Hematocrit 36.4 % (33.0-51.0); Hemoglobin 11.6 g/dL (11.5-16.0); IMMATURE GRAN PERCENT AUTO 2 % (0-1); LYMPHOCYTES PERCENT AUTO 7 % (21-46); MONOCYTES ABSOLUTE AUTO 1.19 K/mm3 (0.16-1.47); MONOCYTES PERCENT AUTO 10 % (4-13); Mean Corpuscular HGB 29.9 pg (26.0-34.0); Mean Corpuscular HGB Conc 31.9 g/dL (31.5-36.5); Mean Corpuscular Volume 94 fL (80-100); Mean Platelet Volume 9.9 fL (9.1-12.4); NEUTROPHILS ABSOLUTE AUTO 9.35 K/mm3 (1.96-9.15); NEUTROPHILS PERCENT AUTO 77 % (41-73); Platelet Count 313 K/mm3 (150-400); RDW Coefficient Variation 12.9 % (11.7-14.2); RDW Standard Deviation 44.6 fL (35.1-46.3); Red Blood Cell Count 3.88 M/mm3 (3.80-5.20); White Blood Cell Count 12.22 K/mm3 (4.00-11.30)
--- NOTE | 2018-10-20 16:57 | NUR ---
SHIFT SUMMARY PT SLEEPING DURING SHIFT REPORT. WOKE SLOWLY THIS AM, REPORTING "MY BLOOD SUGAR IS LOW", SEE CHART. PT OFFERED MULTIPLE CHOICES OF PO INTAKE TO HELP; VERY PICKY AND IRRITABLE. PT FINALLY AGREED TO MILK. PT APPEARED AND REPORTED FEELING BETTER RIGHT AWAY. AM LANTUS DOSE HELD AND DISCUSSED WITH DR ARROYO WHO CHANGED INSULIN ORDERS. PT NOT EATING MUCH AGAIN, BUT DID A LITTLE BETTER TODAY THAN YESTERDAY. PT VERY NONCOMPLIANT WITH CARE, REFUSING TO BE TURNED AND CHANGED NEEDED AND PER PROTOCOL. PT INSTRUCTED THAT CARE HAD TO BE DONE FOR HER SAFETY AND HEALTH. PT STILL DOES NOT CALL WHEN INCONTINENT, SO THAT SHE DOES NOT HAVE TO BE TURNED OR CLEANED. BED BATH GIVEN TODAY AND LINENS CHANGED AGAIN WELL, SOME OF WHICH HAS BEEN DONE WITH EVERY CHANGING D/T BECOMING SOILED WITH EACH INCONTINENT EPISODE. MEPILEX DRSG'S TO BUTTOCKS CHANGED AGAIN X2 THIS SHIFT, D/T SOILING. DR ARROYO EXPLAINED PLAN OF CARE TO PT THIS AM, WHEN IN TO SEE HER. PT STABLE TO D/C TOMORROW. IV ABX CHANGED TO PO. IV SITE STARTED LEAKING AND PT REFUSING ANOTHER ONE PUT IN. DR ARROYO NOTIFIED AND NEW ORDERS TO LEAVE IV OUT, ESPECIALLY SINCE ABX CHANGED. PER PT WOUNDS TO BE DEBRIDED ON Oct. PT TO D/C TO SNF UNTIL THAT TIME. PT REPORTS BEING W/C BOUND AND REQUIRES A LIFT TO TX. PT IS VERY PICKY AND DEMANDING ABOUT CARE AND YET REFUSES ALL ATTEMPTS THAT WOULD HELP HER. VERY SELECTIVE REGARDING MEDICATIONS THAT SHE WILL TAKE. WOUNDS TO BUTTOCKS HAVE VERY FOUL SMELLING ODOR. WOUNDS ON BOTH FEET STILL HAVE NOT BEEN ASSESSED D/T PT'S REFUSAL OF ASSESSMENT; DRSG'S AND BOOTS ON BOTH FEET. MEDICATED FOR C/O PAIN PER EMAR AND PT REQUEST. PT CAN BE VERY RUDE AND MEAN TO STAFF WHEN PROVIDING CARE, EVEN THOUGH GREAT CARE AND KINDNESS HAVE BEEN SHOWN TO HER. MUCH TIME HAS BEEN INVESTED BY STAFF TO MAKE HER COMFORTABLE AND PROVIDE NEEDED CARE WHICH PLEASES HER. CALL LT IN REACH. ABLE TO USE NEEDED.
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
[2018-10-21 04:52] LABS: BASOPHILS ABSOLUTE AUTO 0.04 K/mm3 (0.00-0.23); BASOPHILS PERCENT AUTO 0 % (0-2); EOSINOPHILS ABSOLUTE AUTO 0.63 K/mm3 (0.00-0.68); EOSINOPHILS PERCENT AUTO 6 % (0-6); Hematocrit 37.2 % (33.0-51.0); Hemoglobin 12.1 g/dL (11.5-16.0); IMMATURE GRAN ABSOLUTE AUTO 0.23 K/mm3 (0.00-0.10); IMMATURE GRAN PERCENT AUTO 2 % (0-1); LYMPHOCYTES ABSOLUTE AUTO 0.99 K/mm3 (0.84-5.20); LYMPHOCYTES PERCENT AUTO 9 % (21-46); MONOCYTES ABSOLUTE AUTO 1.23 K/mm3 (0.16-1.47); MONOCYTES PERCENT AUTO 11 % (4-13); Mean Corpuscular HGB 30.5 pg (26.0-34.0); Mean Corpuscular HGB Conc 32.5 g/dL (31.5-36.5); Mean Corpuscular Volume 94 fL (80-100); Mean Platelet Volume 9.9 fL (9.1-12.4); NEUTROPHILS PERCENT AUTO 72 % (41-73); Platelet Count 328 K/mm3 (150-400); RDW Standard Deviation 44.8 fL (35.1-46.3); Red Blood Cell Count 3.97 M/mm3 (3.80-5.20); White Blood Cell Count 11.22 K/mm3 (4.00-11.30)
--- NOTE | 2018-10-21 17:31 | NUR ---
Pal Spiritual Care note: I worked with Liberty throughout the day to get her cell phone bill paid and phone charged. She was very distressed by not being able to call long-distance. She admitted to me that she has not seen her son in over a decade. He also rarely calls. She finds this heart-breaking. Liberty is very protective of her body and askes that staff listens to her when she tells them how to best move her body. She feels out of control in nearly every aspect of her life. It is important to her to have control over what happens to her body. She tells me that she will be moving to [facility] after hospitalization--losing all of her possessions as she has no one to help her. Clearly, this is a difficult woman. She is often rude and demanding to staff. And she often appears unreasonable. It is therefore understandable that she has run through anyone who tries to help her. She is very alone in the world and this adds to her despair which manifests in temper tantrums further pushing people away. She desperately needs someone she can count on, but her fear of being hurt (physically and emotionally) drives her anger. Liberty is appreciative of a quiet, gentle presence and affirmation. As it stands now, she likes me. I will continue to provide presence and conversation as schedule permits.
--- NOTE | 2018-10-21 18:33 | NUR ---
PATIENT A/OX4 AND REMAINS NONCOMPLIANT WITH MUCH OF HER CARE. REFUSED MOST MORNING MEDS. MEDICATED X2 FOR NECK AND COCCYX PAIN WITH NORCO. PATIENT DOES NOT HAVE AN IV SITE. ACHS BLOOD SUGARS, NO COVERAGE NEEDED THIS SHIFT. DRESSING TO COCCYX CHANGED TODAY AND WOUND CONTINUES TO WORSEN DUE TO PATIENTS NONCOMPLIANCE WITH ATTENDS CHANGES. DISCUSSED WITH PATIENT THE IMPORTANCE OF KEEPING SKIN CLEAN AND DRY. NO ACUTE CHANGES THIS SHIFT. GETS WOUND CARE ON LEGS AT [facility] AND WON'T ALLOW OUR STAFF TO ASSESS.
--- NOTE | 2018-10-22 06:35 | NUR ---
SHIFT SUMMARY PT ANGRY AND NONCOMPLIANT WITH CARE. TURNED AND CHANGED PT X'S 2 THIS SHIFT. PT SCREAMS WHEN TURNED. MEPILEX CHANGED TO COCCYX. PT REFUSED TO HAVE CREAM APPLIED TO ABD. REFUSED TO LET ME LOOK AT HER ABD. ALSO REFUSED TO LET ME LOOK AT HER LEGS. DRESSINGS AND BOOTS IN PLACE THAT PT SAID SHE WILL ONLY ALLOW [facility] TO TOUCH. WHEN INTERACTING WITH PT SHE REPLIES RUDELY TO QUESTIONS AND YELLS WHEN PROVIDING ANY CARE. PT REFUSED LAB DRAW, VITAL SIGNS, AND MORNING MEDICATIONS THIS AM. SLEPT THROUGH MUCH OF THE NIGHT. DID NOT REQUIRE ANY PRN PAIN MEDICATION. LARGE PRESSURE ULCER ON BUTTOCKS/COCCYX. TISSUE IS BLACK AND THERE IS A FOUL ODOR. NO ACUTE CHANGES THIS SHIFT. WILL CONTINUE TO MONITOR PT ALLOWS.
[2018-10-22 09:04] LABS: BASOPHILS ABSOLUTE AUTO 0.05 K/mm3 (0.00-0.23); BASOPHILS PERCENT AUTO 1 % (0-2); EOSINOPHILS ABSOLUTE AUTO 0.44 K/mm3 (0.00-0.68); EOSINOPHILS PERCENT AUTO 4 % (0-6); Hematocrit 42.6 % (33.0-51.0); Hemoglobin 13.4 g/dL (11.5-16.0); IMMATURE GRAN PERCENT AUTO 4 % (0-1); LYMPHOCYTES ABSOLUTE AUTO 0.99 K/mm3 (0.84-5.20); LYMPHOCYTES PERCENT AUTO 10 % (21-46); MONOCYTES ABSOLUTE AUTO 0.86 K/mm3 (0.16-1.47); MONOCYTES PERCENT AUTO 8 % (4-13); Mean Corpuscular HGB 29.7 pg (26.0-34.0); Mean Corpuscular HGB Conc 31.5 g/dL (31.5-36.5); Mean Corpuscular Volume 95 fL (80-100); Mean Platelet Volume 9.8 fL (9.1-12.4); NEUTROPHILS ABSOLUTE AUTO 7.44 K/mm3 (1.96-9.15); NEUTROPHILS PERCENT AUTO 73 % (41-73); Platelet Count 362 K/mm3 (150-400); RDW Coefficient Variation 13.2 % (11.7-14.2); RDW Standard Deviation 46.7 fL (35.1-46.3); Red Blood Cell Count 4.51 M/mm3 (3.80-5.20); White Blood Cell Count 10.18 K/mm3 (4.00-11.30)
--- NOTE | 2018-10-22 17:10 | NUR ---
Pal Spiritual Care note: Liberty admits to me that she's agreed to medical proceedure b/c she does not feel able to go home and care for herself. She's agreed to medical intervention so she can stay hospitalized. She admits she is very fearful she won't wake up after surgery, also that she is afraid of . "I don't want to ." I attempted to explain to her the correlation between allowing medical care and fending off pain/suffering/. She admits she is in an "impossible situation" as she declines medical treatment to avoid pain, but she there is more pain to come--even , if she does nothing. She seemed to understand this, but quickly changed to subject to other dissapointments in her life. Liberty is terribly claustraphobic, so the thought of a CAT scan terrifies her. She asked me if I thought she was dying. I told her that I believed God was not done with her here on earth. That if she accepted care, I beleive it is possible for her to have more years. She briefly appeared relieved at this. But it did not last long. Liberty is full of fear. She allowed me to pray for her today, and became momentarily tearful. I will remain available.
--- NOTE | 2018-10-22 18:44 | NUR ---
PATIENT WENT FOR CT SCAN TODAY AND SURGERY COSULT CALLED FOR DECUBITUS ULCER TO COCCYX. DRESSING CHANGED TO COCCYX X3 THIS SHIFT WITH ATTENDS CHANGES. PATIENT GIVEN ATIVAN PRIOR TO CT. PATIENT MORE COMPLIANT WITH CARE TODAY. VERY FEARFUL OF SURGERY AND D/C. LOGISTICS DIRECTOR AT BEDSIDE A FEW DIFFERENT TIMES THIS SHIFT TALKING WITH PATIENT. 20G IV PLACED TO R AC FOR CT SCAN TODAY. PATIENT MEDICATED FOR PAIN X2 THIS SHIFT WITH NORCO.
--- NOTE | 2018-10-22 23:06 | NUR ---
PATIENT UNCOOPERATIVE WITH NURSING STAFF AND REFUSED TO ALLOW THIS NURSE TO DO ASSESSMENT. PATIENT STATES SHE WILL TAKE HER PRESCRIBED MEDICATIONS "LATER" THEN TOLD ME TO LEAVE HER ALONE. LEFT THE ROOM WITH CALL LIGHT WITHIN REACH OF PATIENT.
--- NOTE | 2018-10-23 07:00 | NUR ---
ASSUMED CARE OF PT- BEDSIDE REPORT COMPLETED WITH NIGHT RN EVA. PT ALERT AND ORIENTED AND PER REPORT MOSTLY NON-COMPLIANT WITH CARE NEEDS. PT SPEAKS IN FOUL INAPROPRAITE LANGUAGE WHEN ANGERED AND PT BECOMES ANGERED OVER SEEMINGLY SMALL THINGS.
--- NOTE | 2018-10-23 07:24 | NUR ---
SHIFT SUMMARY PATIENT TOLD THIS NURSE TO LEAVE HER ROOM AND SHE WOULD TAKE HER MEDS "LATER". CAME BACK AND CHECKED ON PATIENT AND MEDICATIONS WERE GONE WITH MED CUP EMPTY ON BEDSIDE TABLE. PATIENT REFUSED TO BE TURNED OR CLEANED UP AFTER EPISODE OF INCONTINENCE. PATIENT WAS CHANGED NEAR CHANGE OF SHIFT AND COULD BE HEARD SCREAMING AT STAFF FROM THE HALLWAY. NO ACUTE CHANGES OVERNIGHT
--- NOTE | 2018-10-23 18:24 | NUR ---
SHIFT SUMMARY- PT ALERT AMD ORIENTED. PT, PER REPORT IS A LIFT PT AND WC BOUND AT BASELINE. PER PT STATEMENT TODAY SHE STAYS IN HER WC 24HRS/DAY AND TAKES SPOUNGE BATHS. PT IS NON-COMPLIANT WITH STAFF CHANGING AND REPOSITIONING OF ANY KIND. AT ONE POINT DURING THE SHIFT THE PT WAS WET WITH URINE AND SHE REFUSED TO LET STAFF CHANGE HER STATING SHE WANTED TO WAIT UNTIL THE SURGEON CAME BACK SO SHE ONLY HAD TO ROLL ONCE TODAY. STAFF LATER CONVINCED HER TO ROLL SO HER LINNENS AND ATTENDS COULD BE CHANGED. BED BATH WAS DONE AT THIS TIME AND THIS TOOK THREE STAFF. PT HAS STATED SHE DOES NOT WANT MEN CARING FOR HER. PT STATED PAIN WAS OK THIS MORNING, MEDICATED FOR PAIN LATER IN THE SHIFT. PT STATED PAIN WAS 10/10 AFTER BANDAGE WAS CHANGED AND FOLLOW UP ON PAIN MEDICATION PT STATED PAIN WAS 10/10 STILL. WHEN STAFF OFFERED TO CALL THE DOCTOR TO GET ANOTHER MEDICATION FOR PAIN THE PT STATED "DON'T BOTHER." STAFF ATTEMPTED TO SPEAK TO THE PT BUT SHE BECAME ANGRY THAT STAFF WERE TRYING TO GET HER MORE MEDICATION. PT CAN BE ANGERED EASILY. SHE BECAME ANGRY THIS MORNING D/T HER LANTUS DOSE BEING HELD. SPOKE TO DR ARROYO PT STATES SHE TAKES 45 UNITS OF LANTUS IN THE MORNING AND 35 UNITS AT NIGHT. PT HAS RECIEVED ONE DOSE OF 40 UNITS SINCE ADMIT AND POC BG HAVE ALL BEEN BELOW 200. DR ARROYO TOLD RN TO HOLD TODAYS DOSE (PT HAD ALREADY REFUSED) AND CHANGE TOMORROWS DOSE TO 20 UNITS. PT WAS SEEN BY DR BRUCE TODAY AND WILL BE GOING TO SURGERY TOMORROW FOR I&D. UNCLEAR AT THIS TIME IF A WOUND VAC WILL BE PLACED. D/T PT NON-COMPLIANCE WOUND CARE MAY BE DIFFICULT. PT C/O IV SITE HURTING AND INSISTED IT BE REMOVED AND PLACED SOMEWHERE ELSE, NEW 20G IV PLACED IN THE LEFT FORE ARM. PT CURRENTLY SITTING UP IN BED, ATTENDS ARE DRY, CALL LIGHT IN REACH. PT HAS ORTHO BOOTS ON BILATERAL FEET, UMNABLE TO ASSESS PEDAL PULSES. PT REFUSED ASSESSMENT, UNABLE TO LISTEN TO HEART, LUNGS AND STOMACH. ALL OTHER PARTS OF ASSESSMENT COMPLETED.
--- NOTE | 2018-10-23 23:17 | NUR ---
refusing medications, cares and turning, "just leave me alone". Reoffered medications and continues to refuse. BG 155 at HS no coverage indicated but held lantus insulin due to NPO status for surgery tomorrow. Will reapproach.
--- NOTE | 2018-10-24 02:09 | NUR ---
Liberty is refusing to have her attends changed. "I dont want to" "Just go away" I offered to arrrange pain medication before any moving. "That wont work, just go away" This is the second time this shift I have attempted to assist her with basic hygiene but she continues to be adamantly against any care.
--- NOTE | 2018-10-24 02:28 | NUR ---
PT REPEATEDLY refused to be turned or attends changed. Refused all oral meds. reapproached repeatedly for cares by multiple personel and screams get out, just leave akila alone. Attempting to complete presurgical checklist and PT refused earrings off. She did sign blood transfusion consent and consent to verbal release of information. entry level business analyst Carrie has approached PT multiple times about refusing cares and turns refusing attends changes.
[2018-10-24 05:20] LABS: BASOPHILS ABSOLUTE AUTO 0.04 K/mm3 (0.00-0.23); BASOPHILS PERCENT AUTO 0 % (0-2); EOSINOPHILS ABSOLUTE AUTO 0.53 K/mm3 (0.00-0.68); EOSINOPHILS PERCENT AUTO 4 % (0-6); Hematocrit 39.3 % (33.0-51.0); Hemoglobin 12.6 g/dL (11.5-16.0); IMMATURE GRAN ABSOLUTE AUTO 0.45 K/mm3 (0.00-0.10); IMMATURE GRAN PERCENT AUTO 4 % (0-1); LYMPHOCYTES PERCENT AUTO 12 % (21-46); MONOCYTES ABSOLUTE AUTO 1.26 K/mm3 (0.16-1.47); MONOCYTES PERCENT AUTO 10 % (4-13); Mean Corpuscular HGB 29.9 pg (26.0-34.0); Mean Corpuscular HGB Conc 32.1 g/dL (31.5-36.5); Mean Corpuscular Volume 93 fL (80-100); Mean Platelet Volume 9.7 fL (9.1-12.4); NEUTROPHILS ABSOLUTE AUTO 8.34 K/mm3 (1.96-9.15); NEUTROPHILS PERCENT AUTO 69 % (41-73); Platelet Count 350 K/mm3 (150-400); RDW Coefficient Variation 13.2 % (11.7-14.2); RDW Standard Deviation 44.9 fL (35.1-46.3); Red Blood Cell Count 4.22 M/mm3 (3.80-5.20); White Blood Cell Count 12.12 K/mm3 (4.00-11.30)
--- NOTE | 2018-10-24 12:10 | NUR ---
CALLED AND SPOKE TO DR ARROYO- PT HAS BEEN NPO SINCE MIDNIGHT, BG AT BREAKFAST WAS 107 AND MOST RECENT WAS 96. IF CURRENT TREND CONTINUES BG MAY DROP TOO LOW BEFORE PROCEDURE, UNKNOWN TIME FOR PROCEDURE. RECIEVED ORDER FOR D5 AND 1/2NS TO PREVENT HYPOGLYCEMIA.
--- NOTE | 2018-10-24 12:13 | NUR ---
RECIEVED A CALL FROM [facility] DAY [facility]. PLAN TO TAKE THE PT IN THE NEXT HOUR. WILL CTM, WAITING TO HANGE D5 SUGAR IS STILL IN HIGH NORMAL RANGE.
--- NOTE | 2018-10-24 13:04 | NUR ---
PT BECAME IRRITABLE (MORE THAN BASELINE) AND BEGAN ACTING ANXIOUS APPEARED A LITTLE SHAKEY, STARTED D5 AND 1/2NS TO MAINTAIN BG, BG CHECKED WHEN IVF STARTED BG 89.
--- NOTE | 2018-10-24 13:10 | NUR ---
PT BEHAVIOR- PT IS SCARED ABOUT THE PORCEDURE AND TENDS TO DEAL WITH THAT BY LASHING OUT AT PEOPLE. PT CAN BE SHORT AND USE FOUL OR ABRASIVE LANGUAGE. PT STATED SHE IS AFRAID ABOUT WHAT IS GOING TO HAPPEN DURING AND AFTER THE PROCEDURE. DR HAS ALREADY EXPLAINED THE PROCEDURE TO HER, EXPLAINING WHAT IS HAPPENING HELPS ALOT, HOWEVER IF THE PLAN IS DEVIATED FROM THE PT PANICKS AND LASHES OUT WITH WHAT APPEARS TO BE ANGER.
--- NOTE | 2018-10-24 14:16 | NUR ---
10/24/18 1416 Sheri Bae PT ON SCHEDULED ANTIBIOTICS
--- NOTE | 2018-10-24 14:50 | NUR ---
PER DR BRUCE DRESSING IS SPONGE TYPE APPLIED TO SURGICAL SITE . HE STATES AREA IS INTACT NOT TO TRY TO TURN PT AT THIS TIME TO LOOK AT IT
--- NOTE | 2018-10-24 19:10 | NUR ---
PATIENT REFUSED 1800 POST OP VITALS NURSE BLANE HAN WAS NOTIFED.
--- NOTE | 2018-10-24 19:43 | NUR ---
SHIFT SUMMARY- PER REPORT FROM MEAT PICKLER PT IS NOT TO BE TURNED AT THIS TIME. WOUND CARE IS ORDERED Q SHIFT. PT WAS MEDICATED FOR PAIN IN THE RECOVERY. PT IS VERY DEFENSIVE. CALLED DR ARROYO ABOUT THE PT URINE AND WOUND HEALING ON THE FRESH SURGICAL WOUND, SINCE THE PT CAN'T BE TURNED, REQUESTED A RO ORDER. ORDER RECIEVED. PT ADIMATELY REFUSED STATING THERE "WILL NEVER BE A CATHETER IN ME!" ORDER WILL BE PUT IN THE CHART IN THE EVENT THAT THE PT CHANGES HER MIND.
--- NOTE | 2018-10-25 01:10 | NUR ---
DR Monroe updated on PT's inadeq pain relief of postop sacral buttock decub pain on norco 7.5 /325 mg one tab. He rx fentanyl 25 to 50 mcg Q 4 HRs PRN severe pain. Order submitted. Also updated PT refused Castillo cath and turns and most medications. Firm approach with 3 staff to insist she have wet attends changed. Insisted PT take antibiotic and allow to have turns for toileting. She screams and cusses. She insists the DR said no turning postop but she is incontinent of urine and refuses castillo cath placement due to deep decub.
[2018-10-25 06:09] LABS: BASOPHILS ABSOLUTE AUTO 0.05 K/mm3 (0.00-0.23); BASOPHILS PERCENT AUTO 0 % (0-2); EOSINOPHILS ABSOLUTE AUTO 0.45 K/mm3 (0.00-0.68); EOSINOPHILS PERCENT AUTO 4 % (0-6); Hematocrit 38.4 % (33.0-51.0); Hemoglobin 12.2 g/dL (11.5-16.0); IMMATURE GRAN ABSOLUTE AUTO 0.48 K/mm3 (0.00-0.10); IMMATURE GRAN PERCENT AUTO 4 % (0-1); LYMPHOCYTES ABSOLUTE AUTO 1.35 K/mm3 (0.84-5.20); LYMPHOCYTES PERCENT AUTO 11 % (21-46); MONOCYTES ABSOLUTE AUTO 1.36 K/mm3 (0.16-1.47); MONOCYTES PERCENT AUTO 11 % (4-13); Mean Corpuscular HGB Conc 31.8 g/dL (31.5-36.5); Mean Corpuscular Volume 95 fL (80-100); Mean Platelet Volume 9.7 fL (9.1-12.4); NEUTROPHILS ABSOLUTE AUTO 8.94 K/mm3 (1.96-9.15); NEUTROPHILS PERCENT AUTO 71 % (41-73); Platelet Count 352 K/mm3 (150-400); RDW Coefficient Variation 13.1 % (11.7-14.2); RDW Standard Deviation 45.4 fL (35.1-46.3); Red Blood Cell Count 4.06 M/mm3 (3.80-5.20); White Blood Cell Count 12.63 K/mm3 (4.00-11.30)
--- NOTE | 2018-10-25 14:13 | NUR ---
PATIENT IS REFUSING TO HAVE HER ATTENDS CHANGE. SHE IS REFUSING TO BE TURNED. ABLE TO PUT A PAD IN BETWEEN THE INCONTINENT BRIEF AND HER SKIN. NOTIFIED DR. RODRÍGUEZ, IS AWARE OF PATIENT REFUSAL FOR CARE.
--- NOTE | 2018-10-25 19:40 | NUR ---
SHIFT SUMMARY: NO ACUTE CHANGES TO REPORT THIS SHIFT. PT A&O; IRRITABLE; LABILE; UNCOOPERATIVE WITH CARE. NO C/O PAIN THIS SHIFT. REFUSING MANY SCHEDULED MEDICATIONS & INTERVENTIONS; SEE EMAR & CHART. AWAITING SOC SERV REFERRAL R/T REFUSING CARE & UNSAFE TO D/C. REPORT GIVEN TO ONCOMING RN.
--- NOTE | 2018-10-26 02:02 | NUR ---
PT CONTINUES to repeatedly refuse cares and turns, she screams at staff when thay attempt cares and complains constantly while they provide cares. 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 Wound care provided with photo doc in chart. She has bilat le chronic wounds which she has refused to let staff care for. She has clean dry intact dressing placed by [facility] at unknown date and wears black rigid boots that she wount let staff remove. I have insisted on checking circulation to bilat LE and she screamed the whole time. PT has been having wound care in [facility] but agrees we need to visulize and care for bilat LE wounds too. Notified DR Monroe of repeated refusals and bilat le wounds that she has not allowed us to see. Social work referral and requesting PSYCH eval. PT unwilling to comply with cares and treatments needed to improve skin integrity and further damage. She repeatedly refuses cathater placement to minimize moisture to coccyx /buttock decub refuses all turns/ refuses most medications and attempts to fire staff that attempt to care for her. Repeatedly refuses to have bilat le wounds addressed and will not allow staff to remove bilat le orthopedic devices to assess chronic nonhealing le wounds.
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
--- NOTE | 2018-10-26 10:38 | NUR ---
DR WAS IN ROOM AT 0930. CHANGING PAIN MED PT FEELS NOT COVERED WELL. REFUSING IV AND IV MEDS. DR ORDER TO REMOVE. NO IV ORDER. DR TO ADJUST PAIN MED. 1030 SPOKE TO PT, ADVISED OF NEW PAIN MED. SHE REFUSED. STATES NO GOOD. TOLD PT OKAY. WILL NOT GIVE. WILL ADVISE DR WHEN SEE.
--- NOTE | 2018-10-26 12:45 | NUR ---
DR IN ROOM. EXPLAINED IN FRONT OF DR THAT SHE IS REFUSING CHANGES, TURNS, AND FLUSHING IV. PT IMMEDIATELY ARGUED THAT NOT FLUSHING, BUT MEDS. CLARIFIED THAT I CLEARLY DISCUSSED FLUSHING. I DID FLUSH IN ATTENDANCE OF DR RODRÍGUEZ. WAS PAINFUL. IV REMOVED. DR PLACING ORDER FOR NO IV. PT STATES PAIN NOT MANAGED. DR TO CHANGE MEDS FOR HER. DISCUSSED IN FRONT OF PT THAT SHE NEEDS OFF WOUNDS TO HEAL. HE ALSO AGREED. NO OTHER CONCERNSAT THIS TIME. BED INLOW POSITION, CALL LITE IN REACH,
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
--- NOTE | 2018-10-26 18:13 | NUR ---
HAD LONG TALK WITH PT THIS BRANDON. RE TURNING, WOUND CARE AND HER LACK OF ALLOWING US TO CARE OF WOUND. SHE AGREED TO ALLOW IMMED AFTER DINNER TURNING AND LOOKING AT COCCYX WOUND. HAVE RECRUITED 2 EXTRA HELPERS FOR THIS PROCESS AT 1820. SHE STATES IS AFRAID OF BEING HURT. REFUSED PAIN MEDS. AGREED TO HAVE HER DIRECT TURNING AND DO BEST TO ASSIST HER BEST WE CAN. BED IN LOW POSITION,C ALL LITE IN REACH, CALLS APPRP
--- NOTE | 2018-10-26 19:29 | NUR ---
1820 PT ALLOWED DRESSING CHANGE AND ATTENDS CHANGE . WE DID SO WITH 3 PEOPLE. PACKED WITH 1 ROLL ALGENATE. COVERED WITH MEPILEX. ASSISTED BY NUBIA MANSFIELD FOR WOUND MANAGEMENT. ENCOURAGED PT TO KEEP DRY, TELL US WHEN GETS WET AND GET CHANGED TO KEEP WOUND DRY TO HEAL. WOUND ALSO NEEDS CIRCULATION, SO MUST ALSO STAY OFF WOUND ALMOST ALL TIME. PT DISAGREEABLE, BUT ACCEPTING. DID ALLOW CHANGE. PILLOW PLACED ON RT SIDE. BED IN LOW POSITION, CALL LITE IN REACH, CALLS APPROP
--- NOTE | 2018-10-27 06:22 | NUR ---
SHIFT SUMMARY: NADIYA WAS PLEASANT AT THE BEGINNING OF THE SHIFT, BUT TOWARDS THE MORNING SHE WAS GRUMPY AND DID NOT WANT THE WELDER GAS AUTOMATIC OR I TO BOTHER HER. SHE REFUSED FOR US TO CHANGE HER POSITION OR TO CHECK THE WOUND EVERY TIME WE ASKED HER WHEN WE DID ROUNDINGS. SHE SLEPT MOST OF THE NIGHT AND THIS AM AGAIN REFUSED CARE AND REFUSED EVEN HER AM MEDICATIONS, SHE TOLD THE WELDER GAS AUTOMATIC TO GET OUT OF HER ROOM, AND SHE WENT BACK TO SLEEP. OTHER THEN THAT NO OTHER CHANGES WERE OCCURRED.
--- NOTE | 2018-10-27 08:45 | NUR ---
PT QUITE IRRITABLE UPON AWAKENING. SHE IS WET, AND HAS REFUSED CHANGES LAST NITE THROUGHOUT SHIFT PER REPORT. SHE REFUSED CHANGING AT THIS TIME. BUT AGREES TO AFTER BREAKFAST. WILL GET HELP AND MAKE HAPPEN. PT A/O. STATES PAIN PERSISTS. REFUSED PAIN MEDS. H/R REG, NO MURMER NOTED. NO TELE. LUNGS CLEAR, RESP EASY, UNLABORED. ON R.A. BT X4 LAST BM UNKNOWN PER PT. VOIDS INCONT. IN ATTENDS. AGAIN REQUSTED TO CHANGE NOW. ADAMENTLY REFUSED. SHE AGREED TO DO AFTER BKFST. REFUSED DRESSING ASSESSMENT OR DRESSING CHANGE. BED IN LOW POSITION, CALL LITE IN REACH, CALLS APPROP
--- NOTE | 2018-10-27 10:00 | NUR ---
WAS ABLE TO CHANGE PT. 3 ASSIST TO ROLL AND TURN. SHE HAS REFUSED UNTIL NOW. EXPLAINED REASON TO KEEP DRY.. SKIN BREAKDOWN, WOUND HEALING, LOTS OF COMPLAINING, BUT ABLE TO GET SOME MINIMAL COOPERATION. PT MORE PLEASANT AFTER CHANGE. PILLOWS ON SIDE TO KEEP OFF BOTTOM. BED IN LOW POSITION, CALL LITE IN REACH, CALLS APPROP
--- NOTE | 2018-10-27 13:00 | NUR ---
PT ANGRY THAT I CONTINUE TO ASK HER TO CAHNGE AND TURN. STATES NOT WET AT THIS TIME. STATES IF IS ONLY A LITTLE. EXPLAINED THAT IN ORDER FOR WOUND TO HEAL, NEEDS TO KEEP URINE OFF WOUND AND KEEP HER WEIGHT OFF WOUND. ADAMENTLY REFUSED. BECAME ANGRY AND HAD BOTH FISTS SHAKING, BUT DID NOT ATTEMPT TO HIT, JUST SHAKING IN FRONT OF HER. DEMANDED I NOT CHANGE OR TURN HER AT THIS TIME. ADVISED WOULD ASK AGAIN AND REITERATED WOUND HEALING. BED IN LOW POSITION, CALL LITE IN REACH, CALLS APPROP
--- NOTE | 2018-10-27 17:20 | NUR ---
PT WAS UNWILLING TO ALLOW US TO CHANGE HER THIS AFTERNOON UNTIL 1700. I REPEATEDLY ASKED HER TO CHANGE HER FROM NOON UNTIL 1600 WHEN WHE FINALLY AGREED TO DO AT 1700. PT STATED NOT WET AT 1200 AND 1300. SHE STATED JUST LIGHTLY WET AT 1400, BUT REFUSED. DID CHANGE AT 1715. DID ALSO HAVE TO CHANGE THE MEPILEX WAS WET. MINIMAL BRIGHT RED BLOOD NOTED. DR RODRÍGUEZ CALLED AND ADVISED. REPACKED WITH ALGENATE AND MEPILEX PLACED. PT PLACED ON PILLOW ON RT SIDE. BED IN LOW POSITION, CALL LITE IN REACH, CALLS APPROP
--- NOTE | 2018-10-27 18:21 | NUR ---
PT IRRITABLE, REFUSING CARE. PT WAS REQUESTED HOURLY BY ME TO CHANGE ATTENDS AND TURN. SHE REFUSED. PT WAS IRRITABLE AND OBSTINATE AND INSISTANT NOT TO BE TURNED OR CHANGED. WE DISCUSSED EVERY TIME THE PROBLEM OF ALLOWING HER TO GET URINE INTO WOUND. THE PT STATES SHE UNDERSTANDS THE PROCESS AND "IS NOT STUPID" PT WAS ADVISED THAT WOUND NEEDS CIRCULATION TO HEAL AND PT REFUSED TO BE TURNED SINCE 10AM. SHE REFUSED PILLOWS BE PLACED UNDER HER. SHE REFUSED CARE CHANGE/ASSESSMENT OF ULCER WOUND IN THE AM AND MIDDAY. WAS ABLE TO REPLACE MEPILEX AND ALGENATE AT 1700 ATTENDS CHANGE. BED IN LOW POSITION, CALL LITE IN REACH, CALLS APPROP
--- NOTE | 2018-10-27 18:27 | NUR ---
Pal Spiritual Care note; Liberty was pleasant and welcoming. She expressed concerns about the wounds on her legs. She states she has agreed for these wounds to be treated here, this hospitalization. She beleives the only physician who can treat them is the one working in [facility]. I am not sure this beleif is accurate, but it is good that she is willing to allow these wounds to be treated this hospitalization. She does not want to be in pain, however. I gently explained that regardless of who treats these wounds, there most likely will be pain involved. She agrees and states she wants to be pre-medicated before anything is done. I helped her get her meal tray organized just the way she likes it. She had numerous complaints about staff not listening to her instructions. I suspect is has been a very long time since Liberty felt eveline. We have an easy rapport and I will continue to provide emotional support.
--- NOTE | 2018-10-27 22:30 | NUR ---
PATIENT WAS VERY DEFIANT AND AGGITATED WITH THE IDEA OF HAVING TO CHANGE BEDS. HAD CHARGE NURSE ASSIST IN THE SITUATION TO HELP DISCUSS THE IMPORTANCE OF THE CHANGE TO AN AIR MATTRESS BED. SHE CONTINUED TO ARGUE THE FACT SHE DOES NOT HAVE TO MOVE OR CHANGE POSITIONS AND HER WOUND IS JUST FINE. INFORMED OF THE ORDERS BY HER DOCTORS AND TOLD HER THE IMPORTANCE OF IT THAT WE ARE ONLY DOING IT TO ASSIST HER TO GET BETTER. AFTER 30 MINUTES OF DISCUSSION SHE FINALLY ALLOWED US TO MOVE FORWARD WITH ATTENDS CHANGE, WOUND CARE AND BED CHANGE. ATTENDS CHANGED WHICH WAS SATURATED WITH URINE, HER DRESSING WAS ALSO SATURATED WITH URINE, WOUND BED WAS PINK TISSUE WITH SCATTERED PATCHES OF YELLOW SLOUGH, UNABLE TO MEASURE THE PATIENT WANTED CHANGE TO BE QUICK, SHE REFUSED THE WOUND CLEANSER TO BE USED, WAS ONLY ABLE TO DAB IT WITH CLEAN CLOTH WHICH SHE YELLED IT HURT. EDGES HAVE ROLLED SOME ON THE LEFT SIDE OF THE WOUND, WOUND IS DEEP AND LARGE IN SIZE, ABOUT 70% OF HER RIGHT BUTTOCKS. DRAINAGE IS SEROUS SANGOUS IN COLOR, MILD ODOR NOTED, TENDER TO TOUCH. SURROUNDING TISSUE IS RED AND INFLAMMED FROM CONSTANT PRESSURE. APPLIED CALCIUM ALGINATE AND DRESSING, LEFT BUTTOCKS HAD SEVERAL SMALL PRESSURE ULCERS STAGE 3 WITH SLOUGH FORMING IN THEM, SHE DID NOT ALLOW FOR ANY OTHER DRESSINGS TO BE APPLIED OVER THEM, JUST A QUICK PICTURE AND BACK TO GETTING HER OFF HER SIDE. ATTENDS APPLIED, RADHA SHEET LAID UNDERNEATH HER, USED RADHA TO CHANGE BEDS WHICH SHE YELLED DURING THE ENTIRE FEW MINUTES SHE WAS IN THE RADHA. REPOSITIONED, DURING THE ENTIRE PROCESS SHE WAS STATING HOW MUCH SHE HATED IT AND DID NOT WANT TO DO IT IN A RAISED VOICE SO OTHER PATIENTS COULD HEAR. ONCE IN THE AIR MATTRESS, SPENT ANOTHER 30 MINUTES TRYING TO MAKE HER COMFORTABLE, GETTING EVERY WRINKLE OUT, POSITIONING HER TABLE, HER BED RIGHT IN THE ROOM, IT HAD TO BE A CERTAIN FEET AWAY FROM THE WALL, A CERTAIN HEIGHT, TABLE HAD TO BE PLACED A CERTAIN WAY. SHE HAD TO BE COVERED RIGHT. HER ROLLED BLANKET FOR HER NECK HAD A LUMP SO IT HAD TO BE FIX 4 TIMES TILL SHE WAS HAPPY WITH IT. FINALLY GOT ALL THINGS SITUATED SPENDING AN HOUR AND 30 MINUTES IN THE ROOM ASSISTING HER. BEFORE LEAVING SHE SAID WE WILL NOT BE CHANGING HER AGAIN OR HAVING HER CHANGE POSITIONS AGAIN THIS NIGHT. CHARGE NURSE INFORMED OF THE SITUATION.
--- NOTE | 2018-10-28 07:23 | NUR ---
SHIFT SUMMARY: PT HAS BEEN VERY DEFIANT THROUGHOUT THE SHIFT DENYING CARE AND TREATMENT. SHE REFUSED TO BE CHANGED OR REPOSITIONED PER ORDERS. WITH CHARGE NURSE ASSISTANCE WAS ABLE TO CONVINCE HER TO DO THE TRANSFER TO AIR MATTRESS BED. THIS TOOK A TEAM OF THREE TO CONVINCE, CHANGE, TRANSFER, ROLL, AND REPOSITION TO HER LIKING. PLEASE SEE OTHER NOTE FOR DETAILS ON BEHAVIORALS, SHE TENDS TO YELL AND CUSS, IF SHE DOES NOT LIKE THE CARE. AFTER THIS SHE REFUSED TO HAVE ANYTHING ELSE DONE FOR THE NIGHT, AND GOT AN ATTITUDE IF WE DID NOT ANSWER HER CALL YELLING OUT IN THE HALLWAY. HAD THE CHARGE NURSE TALK TO HER AGAIN ON THE BEHAVIOR SO SHE DENIED ANYTHING ELSE FOR THE REST OF THE SHIFT INCLUDING HER MORNING MEDS AND VITALS. GAVE REPORT TO DAY SHIFT RN.
--- NOTE | 2018-10-28 08:00 | NUR ---
PT. LYING IN BED REFUSED ASSESSMENT WILLIAM BLE. SCREAMS."DON'T TOUCH THEM, THEYRE FINE." PT. VERY ANGRY THIS MORNING AND ORDERED ME OUT OF HER ROOM.
--- NOTE | 2018-10-28 15:37 | NUR ---
Pal Spiritual Care note: Liberty welcomed me into room. I bought her a pair of reading glasses as she had been complaining that she couldn't read the information we were giving her. Apparently, she had asked several people to purchase reading glasses because another pair were on her table that were brought by a volunteer. She showed me photos of her wounds and spoke to me about sending them to her son, "so he will get an insurance attorney and renan UVSNF." Miniutes later, she asked the RN is she knew of any way she would get an insurance attorney b/c "there's no one to help me." This was the first time I had witnessed Liberty contradicting herself. I have been told by staff that she continues to deny basic care, but tells me she does not. It is unclear to me if this is intentional manipulation, forgetfullness, or an attempt to remain hospitalized. She says she "hates" being here and cannot return home. Per assessments, she has been denied at all facilities that have been approached to care for her. I don't know if she has been told this or not. Clearly, she is very lonely. Any attention is better than none perhaps. Today, I provided theraputic listening and encouragement. I will remain available.
--- NOTE | 2018-10-28 16:30 | NUR ---
PT. ATTENDS CHANGED AND I ASSISTED PT. TO HAVE A VERY LARGE BM. AFTER PT. CLEANED DECUB DRSG CHANGED. I CLEANED THE AREA WITH SKIN TEGRITY, EVEN THOUGH THE PTS SAID DON'T USE THAT ON ME. I SPRAYED THE 4X4 AND CLEANED THE AREA. WOUND NOTED TO HAVE A POOL OF BLOOD IN THE CAVITY, THE WOUND BED WAS RED. PLACED ALGINATE IN WOUND CAVITY AND COVERED WITH MEPILEX. NOTED TUNNELING ON THE UPPER EDGE OF CAVITY. PT. REFUSED TO LET ANYONE TOUCH HER BLE BRACES AND BOOTS.
--- NOTE | 2018-10-28 19:15 | NUR ---
NO OTHER NOTEABLE CHANGES THIS SHIFT OTHER NOTED IN PREVIOUS NOTES.
--- NOTE | 2018-10-28 23:40 | NUR ---
PATIENT INCREASED AGITATION. REFUSING CARE AND SOME MEDICATION. CURSING AT STAFF. REFUSED PAIN MEDICATION. CALL LIGHT IN REACH. WILL CONTINUE TO MONITOR.
--- NOTE | 2018-10-29 03:30 | NUR ---
SHIFT SUMMARY PATIENT HAD NO ACUTE CHANGES OBSERVED THIS SHIFT. AXOX 3 AND BEDFAST. PATIENT HAD INCREASING AGITATION. REFUSED SOME CARE AND PAIN MEDICATION. CURSE AT STAFF WHEN REPOSITIONING AND SCREAMING AT TIMES. CBG 192. TAKES MEDICATION WHOLE WITH WATER REFUSING SOME OF THE MEDICATIONS. PATIENT REFUSED DECUB DRESSING CHANGE. VSS/AFEBRILE. DENIES SOB AND N/V. CALL LIGHT IN REACH. BED IN LOWEST POSITION. WILL CONTINUE TO MONITOR UNTIL DAY SHIFT NURSE ASSUMES CARE.
--- NOTE | 2018-10-29 05:33 | NUR ---
PATIENT REFUSING SECOND SET OF VITALS.
--- NOTE | 2018-10-29 05:45 | NUR ---
THE PATIENT HAS REFUSED CARE. THE RETAIL SELLING SPECIALIST HAS OFFERED THE PATIENT TO BE CHANGED AND TURNED. THE PATIENT IN TURN HAS REPEATEDLY TOLD THE RETAIL SELLING SPECIALIST TO GO AWAY AND GET OUT OF HER ROOM. THE RETAIL SELLING SPECIALIST ASKED MULTIPLE TIMES IF THE PATIENT WOULD ALLOW CARE AND THE PATIENT INSTRUCTED THAT SHE WOULD HIT THE RETAIL SELLING SPECIALIST IF CARE WAS DONE. RN NOTIFIED.
--- NOTE | 2018-10-29 09:04 | NUR ---
REFUSAL OF CARE. PT REFUSED MOST ORDERED MEDICATIONS. PT REFUSED ASSESSMENT THIS AM. PT REFUSING REPOSITION/WOUND CARE AT THIS TIME.
--- NOTE | 2018-10-29 11:11 | NUR ---
PT REFUSING WOUND CARE UNLESS FROM WOUND CLINIC PT REFUSING FOR THIS RN TO COMPLETE WOUND CARE ON LEGS. PT WILL ALLOW FOR WOUND CLINIC NURSE, LESIA TO COMPLETE CARE. SHYLA GRAF AGREED TO COME COMPLETE WOUND CARE AFTER HER SHIFT IN THE WOUND CLINIC. PT INFORMED & AGREEABLE.
--- NOTE | 2018-10-29 14:53 | NUR ---
PT CONTINUES TO REFUSE CARE. PT CONTINUES TO REFUSE BRIEF CHANGES & REPOSITIONING. PT STATES "SHE IS FINE" & "DOESN'T NEED TO BE MOVED". PT AGREEABLE TO DRESSING CHANGE ON HER SACRUM & HAVING BRIEF & LINEN CHANGE DONE AT THAT TIME. WILL CONTINUE TO MONITOR.
--- NOTE | 2018-10-29 16:02 | NUR ---
DRESSINGS CHANGE TO BLE, SMALL AMOUNTS OF PURULANT DRAINAGE NOTED ON THE SURFACE OF THE SKIN. WOUND CULTURE TAKEN. WOUNDS WERE CLEANED WITH NORMAL SALINE AND A 2 LAYER LIGHT COMPRESSION WRAP WAS REAPPLIED. CAP REFILL IS UNDER 3. NO ACUTE CHANGES NOTED. PT REPORTED PAIN DURING DRESSING CHANGES AND WAS VERY SPECIFIC ON DRESSINGS TO BE APPLIED. [facility] REPORTED ADEQUATE WILLIAMS'S TOLERATING A 2 LAYER COMPRESSION.
--- NOTE | 2018-10-29 16:48 | NUR ---
LEG WOUND DRESSINGS CHANGED/REFUSAL. PT ALLOWED FOR LEGS TO BE CHANGED BY SHYLA GRAF FROM WOUND CLINIC. PT REFUSED TO HAVE BRIEF CHANGED OR SACRAL DRESSING CHANGED. PT INFORMED THAT HER BED IS SOAKED IN URINE UP TO HER BACK AND TO HER KNEES. PT REPLIED "DON'T YOU THINK I KNOW THAT." PT CONTINUED TO REFUSED EVEN AFTER ENCOURAGEMENT. THIS RN INFORMED THE PT THAT THE ROOM SMELLS LIKE URINE. PT STATES "SHE DOESN'T CARE & IS NOT MOVING." WILL ATTEMPT TO CHANGE BRIEF AGAIN LATER THIS SHIFT. WILL CONTINUE TO MONITOR.
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
--- NOTE | 2018-10-30 00:20 | NUR ---
THE PATIENT WAS PUT IN NEW ATTENDS AND A NEW SHEET SET WAS PLACED ON PATIENT'S BED. THE PATIENT REFUSED CARE DURING DAY SHIFT SO HER ENTIRE BED AND ATTENDS WERE SOAKED WITH URINE. AN RN GAVE THE PT A PARTIAL BED BATH TO REMOVE URINE FROM SKIN.
--- NOTE | 2018-10-30 07:12 | NUR ---
SHIFT SUMMARY ASSUMED PATIENT CARE FROM SHYLA VELASQUEZ. PATIENT ON ROOM AIR. ON SPECIALTY BED. PATIENT SLEPT THE REST OF THE SHIFT. REFUSED TO BE TURNED AGAIN. PATIENT DID ALLOW STAFF TO CLEAN HER UP ONCE THROUGHOUT THE NIGHT. PT WAS SATURATED IN URINE. COCCYX DRESSING CHANGED. NO NEW CHANGES THROUGHOUT THE NIGHT. VITALS STABLE.
--- NOTE | 2018-10-30 07:56 | NUR ---
PT REFUSAL PT REFUSED TO HAVE MORNING VITALS TAKEN. PT REFUSED FULL ASSESSMENT BY THIS RN. PT ALLOWED FOR HEART SOUNDS & LUNGS SOUNDS ONLY. PT REFUSED TO ANSWER QUESTIONS R/T ASSESSMENT. PT REMINDED TO SPEAK NICELY TO STAFF WE ARE HERE TRYING TO HELP HER. PT SCOFFED IN REPLY.
--- NOTE | 2018-10-30 08:07 | NUR ---
PT REFUSING IV AT THIS TIME PT STATES SHE DOES NOT WANT AN IV OR IV ANTIBIOTICS. PT STATES SHE DOES NOT WANT LAB DRAWS. PT STATED SHE WILL NOT ALLOW FOR POKES AT THIS TIME. STATES "SHE WILL THINK ABOUT IT". DR. RODRÍGUEZ CALLED & INFORMED OF PT REFUSAL. STATES SHE WILL TALK WITH HER DURING HIS ROUNDS. WILL CONTINUE TO MONITOR.
--- NOTE | 2018-10-30 10:56 | NUR ---
This nurse went over a treatment plan with patient. treatment plan read to patient and copy given to patient. patint refuse to sign. Witness and I sign plan.
--- NOTE | 2018-10-30 11:07 | NUR ---
PT REFUSING TO BE CHANGED. PT REFUSING TO BE CHANGED. WHEN UNCOURAGED TO BE CLEANED & CHANGED PT STATES IT HURTS & SHE DOES NOT WANT TO. PT EDUCATED ON THE NEED TO KEEP SKIN CLEAN IN ORDER FOR WOUNDS TO HEAL & PAIN TO DECREASE. PT STATED SHE WAS NOT GOING TO BE CHANGED AT THIS TIME. GORGE, NURSING SUP IN TO TALK WITH PT ABOUT COMPLYING TO CARE. PT CONTINUED TO REFUSE. THIS RN ASKED AGAIN IF THE PT WOULD ALLOW US TO CHANGE HER BRIEF. PT REFUSED TO RESPOND. WHEN ASKED IF SHE WILL ANSWER THE QUESTION. PT STATED SHE "PLEADS THE FIFTH". WILL CONTINUE TO MONITOR.
[2018-10-30 13:49] LABS: Magnesium, Blood 1.5 mg/dL (1.6-2.4)
[2018-10-30 13:50] LABS: Albumin, Blood 2.5 g/dL (3.4-5.0); Anion Gap 6 mmol/L (6-16); Blood Urea Nitrogen 5 mg/dL (8-24); Bun/Creatinine Ratio 8.9 (12.0-20.0); CO2, Blood 30 mmol/L (21-32); Calcium, Blood 9.8 mg/dL (8.5-10.1); Chloride, Blood 102 mmol/L (98-108); Creatinine, Blood 0.56 mg/dL (0.40-1.00); Glomerular Filtration Rate >60 (60-); Glucose, Blood 132 mg/dL (70-99); Phosphorus, Blood 2.9 mg/dL (2.5-4.9); Sodium, Blood 138 mmol/L (136-145)
--- NOTE | 2018-10-30 15:57 | NUR ---
Liberty was recumbent and appeared comfortable and well rested. She responded favorably to social attention, active listening and socratic enquiry. I created an opportunity for exploring the importance of being open to care, service and intervention from our staff. I emphasized that we have shared goals relating to her recovery, wellness and comfort and that her healing and medical progress will require much patience, and hard work. She agrees with these concepts and outlooks but appears very firm about her preferences and expectations, and remains reluctant to take responsibility for her frequent refusals of care. She tends to shift culpability to the staff. She alleges that they are unwilling to do things the way she wants and that this is the real source of conflict. I ecnouraged compliance and improved participation and concluded our discussion with a prayer for strength, hope and patience.
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
--- NOTE | 2018-10-30 16:21 | NUR ---
PT EDUCATION PT SHOWN PICTURE OF WOUND & EDUCATED ABOUT THE REALITY OF THIS WOUND. PT PARTICIPATED IN DISCUSSION & ASKED QUESTIONS. PT ENCOURAGED TO ALLOW FOR RO PLACEMENT TO HELP PROTECT SKIN FROM FURTHER BREAKDOWN. PT STATED SHE WILL "THINK ABOUT IT." PT EDUCATED ON THE NEED TO ALLOW FOR PILLOW REPOSITIONING. PT REPLIED SHE THOUGHT THE BED DID THAT FOR HER. PT EDUCATED THAT THE AIR BED HELPS BUT DOES NOT REPOSITION FOR THE PT. THIS RN EXPLAINED HOW BLOOD FLOW IMPROVES WHEN CIRCULATION IS ALLOWED INTO THE TISSUE BY REPOSIONING THE BOTTOM. PT STATED SHE UNDERSTOOD. THIS RN EXPLAINED THE PT THE THAT IF REFUSAL OF CARE CONTINUES & SHE DOES NOT ALLOW THIS WOUND TO HEAL IT IS POSSIBLE THAT SHE WILL FROM THE WOUND ITSELF. PT BECAME QUIET. THIS RN ASKED PT TO BE PATIENT WITH STAFF DURING REPOSITIONING WE ARE TRYING TO HELP HER & HER WOUNDS HEAL. WILL CONTINUE TO MONITOR & RE-ENFORCE EDUCATION NEEDED
--- NOTE | 2018-10-30 17:16 | NUR ---
SHIFT SUMMARY PT CONTINUES TO REFUSE CARE OFTEN. PT ALLOWED FOR 2 CHANGES THIS SHIFT. WOUND CARE COMPLETED THIS SHIFT FOR SACRUM. NO OTHER CHANGES IN ASSESSMENT AT THIS TIME. SEE NOTES FOR REFUSALS/BEHAVIORS. PT CONTINUES TO REFUSE PAIN MEDS. VSS. WILL CONTINUE TO MONITOR UNTIL TURNOVER IS COMPLETE.
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
--- NOTE | 2018-10-30 20:39 | NUR ---
PT REFUSING CBG CHECK BY CLINICAL MENTAL HEALTH COUNSELOR. WILL ATTEMPT LATER.
--- NOTE | 2018-10-30 21:12 | NUR ---
PT REFUSING CBG CHECK, REFUSING INSULIN, REFUSING NIGHT TIME MEDS. FAREED JOHN RN IN SPEAKING C PT REMINDING HER OF THE RULES OF THE TREATMENT PLAN. PT CONT TO REFUSE.
--- NOTE | 2018-10-30 21:17 | NUR ---
PT IS ALLOWING IV PB MAGNESIUM TO BE GIVEN BECAUSE IT WAS "ORDERED BY DR ORANTES". PT ALSO ALLOWED RN TO PERFORM MINIMAL ASSESSMENT OF LUNG SOUNDS HEART SOUNDS. MINIMAL SKIN INSPECTION. REPORTS NEUROPATHY TO BLE.
--- NOTE | 2018-10-30 23:50 | NUR ---
PT CURSES AND YELLS AT STAFF DURING ATTENDS CHANGE AND TURN. 4 STAFFMEMBERS REQUIRED.
--- NOTE | 2018-10-31 04:54 | NUR ---
REFUSING AM LABS AND THREATENING TO HIT STAFF THIS AM.
--- NOTE | 2018-10-31 05:51 | NUR ---
SHIFT SUMMARY PT HAS BEEN UNCOOPERATIVE TONIGHT. PT DOES NOT ALLOW ATTENDS CHANGE, AND SCREAMS, CURSES, AND THREATENS THE STAFF DURING CHANGES. PT HAS ALSO REFUSED ALL MEDS BESIDES ABX, WHICH SHE SCOFFS AT WHEN INFORMING PT THAT AN ABX IS BEING STARTED. PT REFUSES VITAL SIGNS, REFUSES AM LAB DRAWS. STATES, "LEAVE ME ALONE, GET OUT, LET ME SLEEP" ETC. EDUCATED PT ON THE IMPORTANCE OF ALL OF THESE TASKS, AND PT INSISTS SHE DOES NOT CARE. PT IS RESTING IN BED AT THIS TIME, CALL LT IN REACH. WILL CONT TO MONITOR AND PROVIDE CARE UNTIL PRESUMED BY ONCOMING RN.
[2018-10-31 07:06] LABS: Hematocrit 36.8 % (33.0-51.0); Hemoglobin 11.6 g/dL (11.5-16.0)
[2018-10-31 07:14] LABS: Albumin, Blood 2.2 g/dL (3.4-5.0); Anion Gap 5 mmol/L (6-16); Blood Urea Nitrogen 8 mg/dL (8-24); Bun/Creatinine Ratio 12.7 (12.0-20.0); CO2, Blood 29 mmol/L (21-32); Calcium, Blood 9.4 mg/dL (8.5-10.1); Chloride, Blood 104 mmol/L (98-108); Creatinine, Blood 0.63 mg/dL (0.40-1.00); Glomerular Filtration Rate >60 (60-); Glucose, Blood 147 mg/dL (70-99); Magnesium, Blood 1.9 mg/dL (1.6-2.4); Phosphorus, Blood 3.3 mg/dL (2.5-4.9); Potassium, Blood 4.5 mmol/L (3.5-5.5); Sodium, Blood 138 mmol/L (136-145)
--- NOTE | 2018-10-31 17:33 | NUR ---
SUMMARY PT AWAKE IN BED WATCHING TV, HAS BEEN RESISTANT TO CARE T/O THE DAY, PT REFUSES TURNS, AND REFUSES ATTENDS CHANGES, SOILED LINENS HAVE BEEN CHANGED DESPITE PT'S RESISTANCE, PT YELLS AND CRIES OUT WITH ANY PERSONAL CARES DONE, "OH WHY CAN'T YOU JUSE LEAVE ME ALONE TO !" EDUCATED THE PT NUMEROUS TIMES REGARDING THE IMPORTANCE OF LINEN AND ATTENDS CHANGES FOR THE HEALING OF THE WOUNDS ON HER COCCYX, COCCYX WOUND DRESSING WAS CHANGED WITH ALL LINEN AND ATTENDS CHANGES, PACKED WITH CALCIUM ALGINATE AND COVERED WITH A FOAM DRESSING, OFFERED PT PAIN MEDICATION SEVERAL TIMES, PT REFUSED, VSS, WILL CONT TO MONITOR
--- NOTE | 2018-10-31 21:38 | NUR ---
REFUSED CBG CHECK, REFUSING ALL NIGHT TIME MEDS. "LEAVE ME ALONE, LET ME SLEEP" SWATTING AWAY AT STAFF. ENCOURAGED AND EDUCATED PT ON IMPORTANCE OF ALL AND SHE CONT TO REFUSE.
--- NOTE | 2018-10-31 22:40 | NUR ---
PT IS SATURATED IN URINE THROUGH HER ATTENDS AND SHEETS. REFUSING TO BE CHANGED AND THREATENING TO HIT STAFF. REQUIRES 4 STAFF MEMBERS AND AN HOUR TO CHANGE ATTENDS, BEDDING, AND WOUND DRESSING CHANGES. PT SCREAMS THE ENTIRE TIME AND DISRUPTS OTHER PATIENTS.
--- NOTE | 2018-11-01 05:43 | NUR ---
REFUSES AM LAB DRAWS. REFUSES AM MEDS BESIDES ABX, PT HAS ONLY ALLOWED ABX AND 2 ATTENDS CHANGES.
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
[2018-11-01 09:20] LABS: Creatinine, Blood 0.62 mg/dL (0.40-1.00); Glomerular Filtration Rate >60 (60-); Magnesium, Blood 1.6 mg/dL (1.6-2.4)
[2018-11-01 11:17] LABS: Source, Urine Catheter
[2018-11-01 11:21] LABS: Appearance, Urine Clear (Clear); Bilirubin, Urine Neg (Neg); Blood, Urine Neg (Neg); Color, Urine Yellow (P-Yellow); Glucose Qualitative, Urine Neg (Neg); Ketones, Urine Neg (Neg); Leukocyte Esterase, Urine Neg (Neg); Nitrite, Urine Neg (Neg); Protein, Urine Neg (Neg); Specific Gravity, Urine 1.005 (1.003-1.022); Urobilinogen, Urine NORM (Normal)
--- NOTE | 2018-11-01 16:36 | NUR ---
Clinical Visit: Pt is agressively unpleasant. She yells at me when she first sees me, "who are you? What are you doing in my room?" I explain a little of what I do here at the hospital such as symptom managment, talk about her pain. "Nothin' works for me, youre not going to do anything for me, get out, I dont need you!" Reviewed with nursing.
--- NOTE | 2018-11-01 17:07 | NUR ---
SUMMARY PT AWAKE IN BED WATCHING TV, PT AGREED TO HAVE A CATHETER PLACED TODAY, COCCYX DRESSING CHANGED PRIOR TO PLACEMENT, PT ALSO HAD A BM JUST PRIOR, CATHETER PLACEMENT TOOK 3 STAFF MEMBERS, GOOD URINE OUTPUT, PT REFUSED TO BE TURNED OTHER THAN FOR BED CHANGES, AND DRESSING CHANGES, OFFERED PT PAIN MEDICATION SEVERAL TIMES, SHE REFUSED EACH TIME, VSS, NO ACUTE CHANGES, WILL CONT TO MONITOR
--- NOTE | 2018-11-01 21:00 | NUR ---
PT REFUSING PM VS, PM CBG CHECK, AND PM MEDS.
--- NOTE | 2018-11-01 21:53 | NUR ---
PT REFUSING THIS RN AND HELMET HAT SWEATBAND PUNCHER TO REPOSITION. EDUCATED ON THE IMPORTANCE OF REPOSITIONING TO ALLOW CIRCULATION FOR OPTIMAL WOUND HEALING. PT RESPONDS, "I KNOW, IM NOT STUPID. SHUT UP AND GET OUT OF MY ROOM."
--- NOTE | 2018-11-02 04:24 | NUR ---
SHIFT SUMMARY NO ACUTE CHANGES TONIGHT. PT CONT TO REFUSE MOST CARE. DOES ALLOW AND REQUEST TO BE REPOSITIONED ONCE, BOTH HIPS FLOATED TO ALLOW CIRCULATION TO WOUND. EVENT TAKES OVER AN HOUR AND REQUIRES 3-4 STAFF MEMBERS PT IS EXTREMELY PARTICULAR AND SCREAMS/CURSES AT STAFF. RO IN PLACE, PATENT AND FLOWING BELOW WAIST. PT DOES NOT ALLOW CATH CARE OR TO EVEN REPOSITION THE TUBING BECAUSE WE ARE "TRYING TO PULL IT OUT" AND HURT HER. EDUCATED PT THAT CATH CARE AIDS IN THE PREVENT OF CAUTIs, PT DECLINES AND PERSISTS TO NOT TOUCH IT AND STAY AWAY. PT ALLOWS ABX IV INFUSIONS, NO OTHER MEDS ALLOWED BY PT. NO CBG, NO VITALS, PT REFUSED THIS ALL. PT IS RESTING IN BED AT THIS TIME, CALL LT IN REACH. WILL CONT TO MONITOR AND PROVIDE CARE UNTIL PRESUMED BY ONCOMING RN.
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
--- NOTE | 2018-11-02 20:30 | NUR ---
ASSUMED CARE OF THE PATIENT, SHE WAS SITTING UP IN BED LIKE NORMAL. ARGUED SLIGHTLY WITH HER ABOUT GETTING TURNED EVERY TWO HOURS, BUT TOLD HER IT WAS PER DOCTORS ORDERS AND FOR THE BEST OF HER WOUND AND WE WILL BE IN EVERY TWO HOURS TONIGHT TO REPOSITION HER. REPOSITIONED HER UP AND MORE TOWARDS THE LEFT. TOLD HER WE WILL BE BACK IN TWO HOURS SO SHE KNOWS WHEN THIS WILL OCCUR.
--- NOTE | 2018-11-03 01:53 | NUR ---
PATIENT REPOSITIONED ON HER SIDE, SO SHE COULD HAVE A BM. LARGE FORMED BROWN STOOL NOTED. WOUND NOTICED TO BE LEAKING. THEREFORE CHANGED DRESSING, WOUND BED WITH 30% SLOUGH, REST GRANULATION TISSUE, ROLLED EDGES, BUT APPEARS TO BE SMALLER TO THIS RN WHO LAST SAW IT A WEEK AGO. WOUND ON THE LEFT BUTTOCKS ARE ALMOST HEALED DOWN TO TWO OPEN SMALL AREAS, LARGER AREA HAS RESOLVED. PACKED WITH CALCIUM ALGINATE, CHANGED LINENS WELL AND REPOSITIONED TO THE RIGHT.
--- NOTE | 2018-11-03 06:34 | NUR ---
SHIFT SUMMARY: NADIYA HAS BEEN MORE COOPERATIVE TONIGHT THEN SHE HAS IN THE PAST. WE HAVE TURNED HER EVERY TWO HOURS THROUGHOUT THE NIGHT EVEN IF SHE COMPLAINS OF IT. TYPICALLY SHE WILL COMPLAIN OF THE TURNING BEFORE HAND BUT SHORTLY AFTER WILL TELL THE STAFF TO LEAVE THE ROOM UNTIL A FEW MINUTES LATER WHEN SHE BECOMES NICE AND TALKATIVE AGAIN. SHE HAD BEEN WORKING WITH REMEDIATION TECHNICIAN AND I WITH VERY LITTLE COMPLAINTS, EVEN WAS ABLE TO CHANGE THE DRESSING AND LINEN WITH NO YELLING OR SCREAMING. WOUNDS HAVE IMPROVED SOME FROM LAST TIME THIS RN SAW THEM. THE LEFT BUTTOCKS IS DOWN TO 2 PINPOINT WOUNDS AND THE LARGER OF THE THREE THAT WERE THERE IS HEALED. THE WOUND ON THE RIGHT BUTTOCKS APPEARS SMALLER AND MORE GRANULATION TISSUE IS PRESENT, BUT THERE IS ABOUT 30% SLOUGH IN THE WOUND BED, YELLOW IN COLOR. EDGES ROLLED. REPOSITIONING HAS BEEN MOSTLY OBTAINED BY PUSHING A PILLOW IN MORE ON ONE SIDE AND LESS ON THE OTHER TO HAVE HER LEAN SLIGHTLY ONE DIRECTION TO THE NEXT AND OCCATIONALLY PICKING HER UP IN BED. SHE STILL LIKES TO SIT IN IN BED IN ONE POSITION AND WILL NOT ALLOW ANY MORE THEN THE POSITIONING OF THE PILLOWS THAT SHE DOES NOT REALIZE WE ARE DOING. OTHER THEN THAT SHE HAS NOT HAD ANY MORE COMPLAINTS OR CONCERNS, AND HAS BEEN MOSTLY PLEASANT THIS SHIFT. WILL REPORT TO DAY SHIFT RN.
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
--- NOTE | 2018-11-03 19:50 | NUR ---
ASSUMED CARE OF THE PATIENT. SHE IS VERY IRRITABLE OF DAY SHIFT. WANTED TO VENT ON HOW THEIR PERFORMANCE WAS. ENCOURAGE HER TO TALK TO CHARGE NURSE, INSTEAD SHE CONTINUED ON, SO ALLOWED HER TO VENT WHILE PERFORMING ASSESSMENT AND STRAIGHTING UP THE ROOM, INFORMED HER REPOSITIONING IS AT 2030 AND EVERY TWO HOURS LIKE LAST NIGHT SHE DID NOT REPLY. PATIENT HAD HER PHONE, TABLE AND CALL LIGHT IN REACH. ASSESSMENT COMPLETED SEE FOR DETAILS.
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
[2018-11-04 07:40] LABS: Albumin, Blood 2.3 g/dL (3.4-5.0); Anion Gap 6 mmol/L (6-16); Blood Urea Nitrogen 10 mg/dL (8-24); Bun/Creatinine Ratio 15.5 (12.0-20.0); CO2, Blood 30 mmol/L (21-32); Chloride, Blood 103 mmol/L (98-108); Creatinine, Blood 0.64 mg/dL (0.40-1.00); Glomerular Filtration Rate >60 (60-); Glucose, Blood 122 mg/dL (70-99); Magnesium, Blood 1.6 mg/dL (1.6-2.4); Potassium, Blood 4.3 mmol/L (3.5-5.5); Sodium, Blood 139 mmol/L (136-145)
--- NOTE | 2018-11-04 15:25 | NUR ---
SHE HAS HAD A BUSY DAY CONVERSING WITH MANY DIFFERENT PEOPLE, CHARGE NURSE, PATIENT ADVOCATE, CLINICAL COURIER, AND OUTSIDE AGENCY PERSONS WHO CAME BACK IN WITH THE CLINICAL COURIER. SHE HAS BEEN COOPERATIVE WITH MYSELF AND NATASHA HER COOK ENCHILADA TODAY. SHE FEELS THE NEED TO CONTROL EVERY INTERACTION. WE HAVE SHIFTED HER WGT SLIGHTLY LEFT AND RIGHT T/O THE DAY. SHE WILL NOT ALLOW ANY SIGNIFICANT TURN. HER LEG DRESSINGS WITH DUSTIN WRAP ON THE OUTSIDE ARE INTACT BILATERALLY. BOTH LEG/FOOT BRACES ARE ON BILATERALLY. SHE ALLOWED ME TO MOVE HER L LEG SLIGHTLY TO CENTER IT BETTER ON THE 1 PILLOW THAT IS THERE. RO IS PATENT. SHE IS REFUSING FOR ME TO CHANGE HER DRESSINGS ON HER BOTTOM SAYING SHE WANTS JACOB RN TO CHANGE THEM TONIGHT INSTEAD. PILLOW CASE FROM UNDER BOTTOM CHANGED D/T WETNESS PRESUMABLY FROM HER DRESSINGS. I'M FINDING OUT JACOB IS NOT WORKING TONIGHT. WILL STRONGLY ENCOURAGE HER TO ALLOW ME TO CHANGE HER DRESSINGS.
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
--- NOTE | 2018-11-04 18:04 | NUR ---
Patient on phone with family. Staff states affect better this afternoon. review of plan of care and patient needs. see eithics note.
--- NOTE | 2018-11-04 18:49 | NUR ---
NOT READY FOR HER DRESSING CHANGE OR BM YET. SHE IS FINISHING DINNER. SHE HAS BEEN ON THE TELEPHONE FOR THE PAST 2HRS BEFORE DINNER. NO CHANGES THIS EVENING. IV ANTIBIOTICS CONTINUE.
--- NOTE | 2018-11-04 19:28 | NUR ---
ASSUMED CARE OF PATIENT. PATIENT IRRITABLE AND REFUSED TO TURN A THIS TIME. RO IN PLACE DRAINING DARK YELLOW CLOUDY URINE. #20 IV IN LW SL; C/D/I FLUSHES WITH 5ML NS. PATIENT DENIES NEED FOR PAIN MED AT THIS TIME. CALL BELLAMY WITHIN REACH.
--- NOTE | 2018-11-05 06:04 | NUR ---
PLEASE HAVE THE WOUNDCARE NURSE CALL DR MEJIA ON HIS CELL.
--- NOTE | 2018-11-05 14:18 | NUR ---
discharged to home with belongings and instructions at 1415.
--- NOTE | 2018-11-05 14:46 | NUR ---
SHE IS TALKING WITH THE PATIENT ADVOCATE. SHE HAS EATEN WELL AND DRANK WELL TODAY. PAIN IS TOLERABLE TO HER. SHE DOES NOT WANT TO TAKE ANY TYPE OF PAIN MEDICINE. SPENT OVER 30 MIN WITH HER THIS MORNING. CALLED BACK TO TELL US THAT HE DOES NOT RECOMMEND A WOUND VAC FOR HER BUTTOCK WOUND BECAUSE THERE IS NOT ENOUGH SPACE BETWEEN THE ANUS AND THE WOUND TO GET A SEAL. I SENT A FACE SHEET WITH NOTE TO ER FOR TO RE-TRY AN EVAL. SHE HAS AGREED TO SEE HIM. SPOKE WITH WOUND CLINIC. THEY ARE NOT AVAILABLE TO CHANGE HER LEG DRESSINGS. SHE SAYS I CAN. WILL SOON.
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
--- NOTE | 2018-11-05 18:10 | NUR ---
pt receptive to theraputic care. Provided aromatherapy, art therapy and a colorful quilt. Met with chaplian and staff today to form multidisciplanary plan for to increase interaction with patient and hope is help her with decisional process and acceptance of care needs.
--- NOTE | 2018-11-05 18:40 | NUR ---
WOUND CARE ON LEGS DONE ORDERED. PHOTOS TAKEN. SMALL AMT OF YELLOW AND SEROSANGUINOUS DRAINAGE EACH LEG. FOOT/LEG BRACES PUT BACK ON. SHE TOLERATED IT WELL. SHE ALSO HAD TIME SPENT WITH THE WOOD SCIENCE PROFESSOR TODAY AND A FRIEND. SHE HAS AGREED TO PILLOW READJUSTMENTS A FEW TIMES TODAY WHEN OFFERED. SHE EATS AND DRINKS WELL. RO PATENT.
--- NOTE | 2018-11-06 11:06 | NUR ---
NURSE WENT INTO ROOM TO ASK PATIENTS PERMISSION TO TAKE PICTURES OF HER BOTTOM ITS BEEN A WEEK AND THEY ARE NEEDED. PATIENT REFUSED AND EACH TIME THIS NURSE TRIED TO PIN POINT AN TIME THE PATIENT BECAME MORE AGGITATED AND REFUSED EACH TIME. NURSE STATED SHE WOULD COME IN AT 1500 WITH ENOUGH HELP TO MOVE THE PATIENT WITHOUT ADDING ANYMORE PAIN OR DISCOMFORT. PATIENT ARGUED WITH THIS ALSO. PATIENT WAS TOLD SHE WAS TO BE DISCHARGED TODAY HER IV ABX HAVE RUN THEIR COURSE AND SHE IS ABLE TO SWITCH TO PO. PATIENT ALSO ARGURED WITH THIS. NURSE DECIDED IT WASNT WORTH ARGURING ANYMORE AND STATED THAT SHE WOULD BE BACK IN AT 1500 TO CHANGE DRESSINGS AND TAKE PICTURE. THIS NURSE ALSO NEEDS TO DO CATH CARE AND WILL PRESENT THAT ISSUE TO PATIENT WHEN SHE IS CALM AGAIN. WILL ADDRESS ONE CHALLENGE AT A TIME WITH THIS PATIENT.
--- NOTE | 2018-11-06 16:30 | NUR ---
WENT INTO DO CATH CARE AND TAKE PICS OF PATIENTS WOUND. DRESSING NEEDED CHANGING. PATIENT BECAME VERY AGGRESSIVE AND STARTED YELLING AND CURSING AT STAFF EVEN AFTER REPEATED ATTEMPTS BY STAFF TO EXPLAIN WHAT WAS BEING DONE AND WHY IT WAS BEING DONE . NO MATTER HOW IT WAS EXPLAINED OR HOW STAFF TRIED TO EXPLAIN OR CALM OR CONVINCE THE PATIENT SHE CONTINUED TO ARGUE, YELL, CURSE, AND RESIST THE CARE. NO MATTER WHAT STAFF SAID OR ATTEMPTED TO SAY SHE WOULD EITHER ARGUE OR INTERRUPT . SHE ATTEMPTED TO HIT STAFF EVEN AFTER SHE WAS TOLD SHE COULD NOT STRIKE AT STAFF. ONCE AGAIN THIS NURSE ATTEMPTED TO PROVIDE EDUCATION ON THE REASONS WHY SHE NEEDED TO BE CLEANED, HAVE HER DRESSING CHANGED, HER LINENS CHANGED, AND PICTURES TAKEN. NO AMOUNT OF REASONING WORKED.
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
--- NOTE | 2018-11-07 06:19 | NUR ---
SHIFT SUMMARY PT VERY IRRITABLE DEFENSIVE ARGUMENTATIVE. REFUSING TO BE TURNED, SAYING "DON'T START WITH ME I'M NOT IN THE MOOD I'LL LET YOU KNOW WHEN I WANT TO BE TURNED". VERY RESISTANT TO CARES. IT TOOK 3 PEOPLE BUT SHE WAS ABLE TO HAVE LARGE BM AND REPOSITIONED. RO DRAINING. REFUSING LEG WOUNDS TO BE LOOKED AT OR ASSESSED. SHE WAS ABLE TO GET TO SLEEP AFTER ABOUT [phone]. CALL LIGHT IN REACH.
--- NOTE | 2018-11-07 15:12 | NUR ---
REFUSAL OF CARE PT REFUSED TO ALLOW ME TO ASSESS THE DRESSINGS ON HER BUTTOCKS. PT REFUSED TO ALLOW ME TO ASSESS THE DRESSINGS ON HER LEGS. PT REFUSED CATHETER CARE. PT REFUSED TO ALLOW VS TO BE TAKEN THIS MORNING. SHE DID ALLOW ME TO PERFORM A VERY LIMITED ASSESSMENT.
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
--- NOTE | 2018-11-07 19:57 | NUR ---
THIS CHEMICAL PROCESS EQUIPMENT OPERATOR BROUGHT A WARM BLANKET PER PT REQUEST THEN ASK TO LEAVE TABLE PUSH OUT JUST TO ALLOW THIS CHEMICAL PROCESS EQUIPMENT OPERATOR TO REACH PT TO DO VITALS PT THEN BEGAN YELLING TO MOVE HER TABLE BACK. THEN PT TOLD THIS CHEMICAL PROCESS EQUIPMENT OPERATOR TO GET OUT OF HER ROOM. CHEMICAL PROCESS EQUIPMENT OPERATOR ASKED IF PT NEEDED ANYTHING PT YELLED "GET OUT". REPORTED TO RN AND DATA ANALYSIS ASSISTANT.
--- NOTE | 2018-11-08 07:18 | NUR ---
SHIFT SUMMARY IRRITABLE AND DEFENSIVE STILL ARGUMENTATIVE. WE DID CHANGE HER COCCYX MEPILEX AND SHE WAS ABLE TO HAVE LARGE FORMED BM. L HEEL PROTECTOR APPLIED TO L HEEL. WAS FLOATED ON PILLOWS. SHE SLEPT ON AND OFF T/O NIGHT.
--- NOTE | 2018-11-08 16:08 | NUR ---
SHIFT SUMMARY PT INTERMITTENTLY REFUSES CARE. SHE DID AGREE TO TAKE ALL OF HER ORAL MEDS. SHE DID AGREE TO ME WIPING DOWN HER SKIN FOLDS OF HER PANNUS AND ALLOWED ME TO APPLY LOTION THERE. SHE ALLOWED US TO PULL HER UP IN BED. SHE REFUSED REPOSITIONING AND CATHETER CARE. SHE ALLOWED PREVIOUS BIOPHARMACEUTICAL REP TO CHANGE HER MEPILEX ON HER COCCYX AND APPLY MEPILEX TO HER HEEL. BECOMES ANGRY WHEN ANXIOUS AND IS DIFFICULT TO REDIRECT. STARTLES EASILY AND IS FEARFUL OF MULTIPLE INTERVENTIONS BEING OFFERED AT ONCE. I DID NOTE SOME FORGETFULNESS TODAY - SHE STATED TO ME THAT SHE HAD NOT SEEN THE PHOTOS OF THE ULCER ON HER COCCYX, I HAD PROVIDED THEM FOR HER TO VIEW YESTERDAY. SHE HAS NOT REQUIRED INSULIN COVERAGE.
[2018-11-09 06:52] LABS: Hematocrit 36.3 % (33.0-51.0); Hemoglobin 11.4 g/dL (11.5-16.0)
--- NOTE | 2018-11-09 07:12 | NUR ---
SHIFT SUMMARY CHANGED MEPILEX ON COCCYX AND FLOATED ON PILLOWS. RO DRAINING. SHE WAS ABLE TO SLEEP T/O NIGHT. REFUSING TURNS T/O NIGHT.
[2018-11-09 07:32] LABS: Albumin, Blood 2.4 g/dL (3.4-5.0); Anion Gap 1 mmol/L (6-16); Blood Urea Nitrogen 13 mg/dL (8-24); Bun/Creatinine Ratio 24.1 (12.0-20.0); CO2, Blood 32 mmol/L (21-32); Calcium, Blood 9.9 mg/dL (8.5-10.1); Chloride, Blood 104 mmol/L (98-108); Creatinine, Blood 0.54 mg/dL (0.40-1.00); Glomerular Filtration Rate >60 (60-); Glucose, Blood 125 mg/dL (70-99); Magnesium, Blood 1.2 mg/dL (1.6-2.4); Phosphorus, Blood 3.3 mg/dL (2.5-4.9); Sodium, Blood 137 mmol/L (136-145)
--- NOTE | 2018-11-09 16:51 | NUR ---
SUMMARY PT AWAKE, ALERT AND ORIENTED, HAS DECLINED MUCH CARE TODAY, REFUSED CATH CARE AND DRESSING CHANGES, STATES, "THEY FEEL FINE, I'M NOT GOING TO WORRY ABOUT IT" EDUCATED PT ABOUT THE IMPORTANCE FOR ROUTINE CATH CARE AND DRESSING CHANGES, PT CHANGED THE SUBJECT, VSS, NO ACUTE CHANGES, WILL CONT TO MONITOR
--- NOTE | 2018-11-09 21:54 | NUR ---
PT. SITTING UP IN BED WATCHING TV. OFFERED TO BE REPOSITIONED BY THIS NURSE AND PHOTO TUBE ASSEMBLER. PT. REFUSED, STATED WANTED TO BE LEFT ALONE. DENIES ANY NEEDS AT THIS TIME. CALL LIGHT WITHIN REACH AND SIDE RAILS UP X2. WILL CONT TO MONITOR.
--- NOTE | 2018-11-10 04:02 | NUR ---
SHIFT SUMMARY- NO ACUTE CHANGES OVERNIGHT. PT. AWAKE AND WATCHING TV T/O MOST OF THE NIGHT. ATTEMPTED SEVERAL TIMES TO REPOSITION, PT. REFUSED. DENIES ANY NEEDS AT THIS TIME. CALL LIGHT WITHIN REACH AND SIDE RAILS UP X2. WILL CONT TO MONITOR.
--- NOTE | 2018-11-10 17:29 | NUR ---
SUMMARY PT RESTING QUIETLY IN BED, WAKES EASILY, DOES NOT LIKE TO BE WOKEN UP, PT CAN BE RESISTANT TO CARES, PT HAS C/O PAIN, DECLINED ANY PAIN MEDICATION, DECLINED A HEATING PAD, PT HAS BEEN PULLED UP IN THE BED SEVERAL TIMES, PT DECLINES TO TURN FAR TO EITHER SIDE, WILL ONLY ALLOW ONE PILLOW UNDER EACH HIP, PT DECLINED TO HAVE THE COCCYX DRESSING CHANGED THIS SHIFT, STATING "IT WAS JUST CHANGED THIS MORNING, IT'S FINE" PT DECLINED TO HAVE HER LEG WOUNDS UNDRESSED OR LOOKED AT, STATING, "THEY FEEL FINE, DON'T WORRY ABOUT THEM, JUST LET ME WORRY ABOUT THEM" PT DECLINED CATH CARE, DESPITE EDUCATION ABOUT THE IMPORTANCE OF INFECTION PREVENTION, PT WILL OCC THANK STAFF FOR SOME OF THE CARES DONE, VSS, NO ACUTE CHANGES, WILL CONT TO MONITOR
--- NOTE | 2018-11-10 18:44 | NUR ---
Pal Spiritual Care note: Liberty was withdrawn today and talked about her son "disowning me." She appears angry and admits she is "heartbroken." She expressed dissapointment with her entire family for not being here for her. She is even angry at her sister in [place] who has cancer. "That's no excuse." She repeatedly told me "I'm just giving up. I am just going to lay here until I ." She told me that "no one has been in to offer me medication or to turn me." I brought RN into room. Liberty admitted to pain, but declined pain medication b/c "It doesn't work on me." She refused to even try. Liberty denies she has receieved care or offers of care even after I have witnessed her being asked. She appears to emotionally locked into a pattern of hopelessness and anger--the more she wants/needs help the more she pushes those who would help her away. It appears to be a sort of self-fulfilling prophecy of chronic abandonment/dissapointment. I suspect, it has become easier for Liberty to expect the worst than to hold out hope for love and reconcilliation. All that said, I will continue to visit Liberty, offering a calm presence of love and acceptance.
--- NOTE | 2018-11-10 20:59 | NUR ---
PT. REFUSING SCHEDULED MEDICATIONS AND BS CHECKS. DISCUSSED WITH PT. RISKS OF REFUSING BS CHECKS AND NOT TAKING SCHEDULED MEDS. PT. VERBALIZED UNDERSTANDING, STATED WANTED TO BE LEFT ALONE. PT. IS RESTING IN BED APPEARS COMFORTABLE, NO APPARENT DISTRESS NOTED. CALL LIGHT WITHIN REACH AND SIDE RAILS UP X2. WILL CONT TO MONITOR.
--- NOTE | 2018-11-10 22:45 | NUR ---
During the night, we have been entering 340 and attempting to take her blood sugar and reposition her. multiple times has she rejected our care.
--- NOTE | 2018-11-11 03:22 | NUR ---
PT. REFUSING VITAL SIGNS AND BS CHECKS. WILL CONT TO MONITOR.
--- NOTE | 2018-11-11 04:34 | NUR ---
SHIFT SUMMARY- PT. ASLEEP T/O MOST OF THE NIGHT. DECLINED SCHEDULED MEDICATIONS WELL PAIN MEDS AND CHEM BG'S. PT. ALSO REFUSING VITAL SIGN CHECK, REPOSITIONING, STATES "WANTS TO BE LEFT ALONE". NO APPARENT DISTRESS NOTED. CALL LIGHT WITHIN REACH AND SIDE RAILS UP X2. WILL CONT TO MONITOR.
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
--- NOTE | 2018-11-11 09:06 | NUR ---
PATIENT REFUSED TO HAVE HER BLOOD SUGAR CHECKED THIS MORNING BY THE COFFEE BREAK ATTENDANT. WHEN THE RN ASKED TO CHECK HER BLOOD SUGAR, THE PATIENT REFUSED ALSO.
--- NOTE | 2018-11-11 14:12 | NUR ---
PATIENT REFUSED WOUND CARE. WILL TRY AGAIN BEFORE END OF SHIFT.
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
--- NOTE | 2018-11-11 18:18 | NUR ---
PATIENT ASKED FOR CATHETER CARE TO BE DONE, I COMPLETED MOST OF THE CARE THEN SHE STARTED YELLING AND PATIENT STATED GET THE FUCK OUT OF MY ROOM YOU STUPID BITCH. I PROCEDED TO LEAVE THE ROOM AND TOLD HER IF SHE CHANGED HER MIND TO CALL ME AND I WOULD HELP HER.
--- NOTE | 2018-11-11 18:36 | NUR ---
PATIENT IS ALERT AND ORIENTED. PATIENT HAS REFUSED WOUND CARE AND PRACHI CARE TODAY. PATIENT HAS TAKEN ALL MEDICATIONS TODAY. PATIENT MAKES HER NEEDS KNOWN. WILL CONTINUE TO MONITOR.
--- NOTE | 2018-11-11 22:59 | NUR ---
REPORT FROM DAY RN WAS THAT PT HAD CALLED DR ORANTES AND TOLD HIM SHE DIDN'T TAKE HER PO MAG PILL AND THAT SHE WANTED IV MAG NOW. DR ORANTES ORDERED IV MAG BUT WHEN APPROACHED TO START AN IV SHE REFUSED AN IV STATING " WHERE WOULD YOU PUT IT, I HAVE NO PLACE TO PUT ONE" AND WHEN PROCEEDED TO LOOK AT HER ARM AND GIVE HER OPTIONS OF WHERE ONE COULD GO SHE WOULD REFUSE EACH PLACE ON HER ARM AND SAID "ABSOLUTELY NOT MY R ARM".
--- NOTE | 2018-11-12 06:05 | NUR ---
PT REFUSED 4AM VITALS. PT ALSO REFUSED ALL CARE INCLUDING TURNING AND CATH CARE. PT STATED "I DONT GET TURNED" AND "NOPE" TO ALL OTHER QUESTIONS. THIS SAW BOSS TOLD PT TO CALL IF SHE CHANGED HER MIND.
--- NOTE | 2018-11-12 06:33 | NUR ---
SHIFT SUMMARY PT STILL IRRITABLE DEFENSIVE AND ARGUMENTATIVE. REFUSING VS TO BE TAKEN BOTH PM VS AND AM VS. DID CHANGE COCCYX MEPILEX C ALGINATE PACKING. ALSO CHANGED RO TUBING AND BAG. REFUSED TURNING T/O NIGHT BUT WAS FLOATED ON PILLOWS. HAD XLARGE SOFT FORMED BM. REFUSED IV (SEE PREVIOUS NOTE). REFUSED AM MEDS. SHE SLEPT ON AND OFF T/O NIGHT.
--- NOTE | 2018-11-12 07:47 | NUR ---
PT REFUSING CARE THIS MORNING, REFUSED LAB DRAW, VITAL SIGNS AND BLOOD SUGAR CHECK.
--- NOTE | 2018-11-12 18:47 | NUR ---
PT REMAINS IRRITABLE, MAKING INAPPROPRIATE REMARKS TO STAFF. SHE HAS REFUSED MOST CARE TODAY, REFUSING REPOSITIONING AND VITAL SIGNS. NO ACUTE CHANGES NOTED THIS SHIFT, WILL CONTINUE TO MONITOR AND REPORT TO ONCOMING RN
--- NOTE | 2018-11-13 06:38 | NUR ---
SHIFT SUMMARY PT IRRITABLE AND ARGUMENTATIVE WITH EVERYTHING. WAS ABLE TO CHANGE COCCYX MEPILEX. BUT SHE REFUSED VS AND LAB DRAW. WAS ABLE TO HAVE LARGE SOFT BM. FLOATED ON PILLOWS. REFUSED TURNING. RO DRAINING.
[2018-11-13 09:03] LABS: Hematocrit 38.7 % (33.0-51.0); Hemoglobin 12.4 g/dL (11.5-16.0)
[2018-11-13 09:12] LABS: Albumin, Blood 2.6 g/dL (3.4-5.0); Anion Gap 7 mmol/L (6-16); Blood Urea Nitrogen 10 mg/dL (8-24); Bun/Creatinine Ratio 21.9 (12.0-20.0); CO2, Blood 31 mmol/L (21-32); Calcium, Blood 10.4 mg/dL (8.5-10.1); Chloride, Blood 102 mmol/L (98-108); Creatinine, Blood 0.46 mg/dL (0.40-1.00); Glomerular Filtration Rate >60 (60-); Glucose, Blood 156 mg/dL (70-99); Magnesium, Blood 1.3 mg/dL (1.6-2.4); Phosphorus, Blood 3.2 mg/dL (2.5-4.9); Potassium, Blood 4.1 mmol/L (3.5-5.5); Sodium, Blood 140 mmol/L (136-145)
--- NOTE | 2018-11-13 09:41 | NUR ---
DRESSING CHANGE REFUSAL ATTEMPTED TO CHANGE DRESSING ON B/L LEGS, PT BECAME UPSET AND BELLIGERANT. SAYS "THEY ARE NOT GOING TO GET CHANGED NOW OR EVER" JUST "GO AWAY AND LEAVE ME ALONE". REMINDED OF HER TREATMENT PLAN CONTRACT, SHE RESPONDED WITH "I DON'T NEED A REMINDER, JUST GO AWAY AND LEAVE ME ALONE" WILL NOTIFY DR RODRÍGUEZ/
--- NOTE | 2018-11-13 18:33 | NUR ---
PT CONTINUES TO REFUSE CARE, REFUSED TO LET RN LISTEN LUNG, HEART AND ABDOMEN. DID NOT WANT TO BE TOUCHED. REFUSED TO BE REPOSITIONED T/O THE SHIFT. IS AWARE OF PT BEHAVIOUR. CALL BELLAMY IN REACH AND PT DOES OCCASIONALLY USE. WILL CONTINUE TO MONITOR AND REPORT TO ONCOMING RN
--- NOTE | 2018-11-13 19:30 | NUR ---
PT REFUSING VITAL SIGNS THIS EVENING
--- NOTE | 2018-11-13 23:12 | NUR ---
PT REFUSING CBG CHECK THIS EVENING. INFORMED PT THAT INSULIN COULD NOT BE GIVEN WITHOUT KNOWING WHAT HER BLOOD SUGAR IS. PT WAS ANGRY ABOUT THIS. EDUCATED PT ON REASONING FOR HOLDING MEDICATIONS AND EXPLAINED THAT INSULIN IS A HIGH RISK MEDICATION. PT CONTINUED TO REFUSE CBG CHECK SO INSULIN WAS HELD.
--- NOTE | 2018-11-14 05:49 | NUR ---
SHIFT SUMMARY PT ANGRY AND IRRITABLE THROUGHOUT THE NIGHT. REFUSED ALL CARE AND ASSESSMENTS EXCEPT ALLOWING US TO REPOSITION HER ONE TIME. REFUSED ALL VITAL SIGNS AND CBG. INSULIN HELD DUE TO PT NOT ALLOWING HER BLOOD SUGAR TO BE CHECKED. SEE NOTE. RO CATHETER REMAINED IN PLACE. DRAINING YELLOW URINE. HOWEVER, PT REFUSED ANY CATH CARE. WHEN ATTEMPTING TO EDUCATE PT SHE TOLD ME TO STOP AND THAT SHE WAS "TIRED OF BEING LECTURED". NO ACUTE CHANGES THROUGHOUT THE NIGHT. PT REMAINS NONCOMPLIANT AND RUDE TO STAFF.
--- NOTE | 2018-11-14 11:43 | NUR ---
DALY REFUSING ALL CARE. SHE HAS REFUSED VS, REFUSED TURNS, REFUSED DRESSING CHANGES, REFUSED PILLS AT TIMES. EDUCATED HER ON HOW TURNS ARE NECESSARY FOR HER SKIN, AND CATHETER CARE IS NECESSARY TO PREVENT UTI, BUT SHE IS ADAMANTLY REFUSING AT THIS TIME. I HAVE CHECKED WITH HER SEVERAL TIMES TODAY, SHE SAYS SHE WILL ALLOW THESE 'LATER'. CARMEN
--- NOTE | 2018-11-14 18:12 | NUR ---
SHIFT SUMMARY DALY VERY ANGRY AND IRRITABLE WITH CARE THIS MORNING. REFUSED ALL TURNS EXCEPT ALLOWED ONE. HAD BM WITH ASSIST, AND ABLE TO CHANGE DRESSING ON BUTTOCK AND PICTURES TAKEN. CBGS REFUSED EXCEPT ONE TIME THIS SHIFT. PT VERY PARTICULAR WITH CARE, HAVING THIS PROCESS TAKE ABOUT AN HOUR. PT COMPLAINS OF PAIN WITH URINATION, DR RODRÍGUEZ INFORMED AND UA ORDERED, BUT PT REFUSES UA. ENCOURAGED HER OF IMPORTANCE OF CATH CARE, WHICH SHE ALLOWED ONE TIME THIS SHIFT. REDNESS ON RLE INCREASING. PT REFUSED DRESSING CHANGE AT THIS POINT. DR RODRÍGUEZ INFORMED OF INCREASING REDNESS AND HE ORDERED PO ABX. COMPLAINED OF PAIN BUT REFUSED PAIN MEDICATIONS OR TURNS. RO INTACT AND DRAINING WELL. TOOK MOST OF MORNING MEDS. CALL LIGHT IN REACH, [facility]
--- NOTE | 2018-11-15 04:55 | NUR ---
SHIFT SUMMARY PT REMAINS IRRITABLE, ANGRY. SHE WANTS TO DIRECT EVERY ASPECT OF HER CARE, AND IS VERY PARTICULAR IN HOW THINGS ARE DONE. PT REFUSED MOST OF MY ASSESSMENT, AND REFUSED TO TAKE HER MEDICATIONS BECAUSE SHE DID NOT WANT ME TO STAND THERE AND WATCH HER TAKE THEM. SHE REFUSED HER VITALS. PT DID ALLOW ME TO CHANGE THE DRESSING ON HER LEGS, BUT WAS VERY PARTICULAR IN HOW I DID THEM. WOUNDS ARE HEALING WITH MIMIMAL DRAINAGE. DRESSED WITH VASOLINE GAUZE AND CAST PADDING, THE SAME DRGS THAT WERE ON PRIOR. PT HAS DENIED NEEDS FOR MOST OF THE NIGHT AND JUST WANTS TO BE LEFT ALONE. NO ACUTE CHANGES TO REPORT WILL CONTINUE TO MONITOR AND REPORT TO ONCOMING RN.
[2018-11-15 15:53] LABS: Source, Urine Catheter
[2018-11-15 16:06] LABS: Bilirubin, Urine Neg (Neg); Blood, Urine 4+ (Neg); Glucose Qualitative, Urine Neg (Neg); Ketones, Urine Neg (Neg); Leukocyte Esterase, Urine 3+ (Neg); Nitrite, Urine Neg (Neg); Protein, Urine Neg (Neg); Urobilinogen, Urine NORM (Normal)
[2018-11-15 16:16] LABS: Appearance, Urine Hazy (Clear); Color, Urine Yellow (P-Yellow)
[2018-11-15 16:17] LABS: Bacteria Few /hpf; Red Blood Cells, Urine 0-2 /hpf (0-2); Squamous Epithelial Cells Not Seen /hpf (Few)
[2018-11-15 16:18] LABS: Amorphous Mod (0-Heavy)
--- NOTE | 2018-11-15 18:10 | NUR ---
SUMMARY- PT A/O- RESISTANT TO NURSING CARE. REFUSED BLOOD SUGAR THIS AM, REFUSED MOST OF HER MEDS. REFUSED AM ASSESSMENT AND REPOSITIONING. REFUSED DRESSING CHANGE TO COCCYC WOUND " WHAT DOES IT MATTER, IM GOING TO OF THIS WOUND ANY WAY". CALLED DR RODRÍGUEZ AND NOTIFIED HIM THAT PT HAS BEEN NON-COMPLIANT. PT FINALLY AGREED TO ALLOW A UA- CAME BACK POSITIVE FOR BACTERIA WITH CULTURE INDICATED, CALLED DR RODRÍGUEZ AND CIPRO ORDERED, PT AGREED SHE WOULD TAKE ANTIBIOTIC.
--- NOTE | 2018-11-16 04:37 | NUR ---
SHIFT SUMMARY PT HAS SLEPT FOR MOST OF THE NIGHT AND CONTINUES TO REFUSE MOST IF NOT ALL OF NURSING CARE THIS SHIFT. SHE ALLOWED AID TO GET HER TEMP, BIOX, AND PULSE BUT REFUSED BP. SHE REFUSED TO HAVEHER BLOOD SUGAR TAKEN AND REFUSED MEDICATION AND MOST OF MY ASSESSMENT. PT REFUSED FOR ME TO CHANGE THE DRESSING ON HER COCCYX, I ASKED HER THREE TIMES IF I COULD CHANGE IT AND EACH TIME SHE REFUSED. WHEN ASKED IF SHE NEEDED ANYTHING SHE DECLINES. THERE HAVE BEEN NO CHANGES. WILL CONTINUE TO MONITOR AND REPORT TO ONCOMING RN.
--- NOTE | 2018-11-16 07:14 | NUR ---
ASSUMED CARE OF PT- ATTEMPTED BEDSIDE REPORT PT REFUSED AND ASKED STAFF TO LEAVE THE ROOM. REPORT RECIEVED FROM NIGHT RN JOE. PER REPORT PT IS REFUSING VITALS, CARE AND ALL MEDICATIONS WITH THE EXCEPTION OF CIPRO. PT HAS BEEN EVALUATED BY DR TOLEDO AND HAS BEEN DEAMED CAPABLE OF MAKING HER OWN DECISIONS (PER REPORT FROM NIGHT RN). PT HAS A RO THAT IS IN PLACE AND PATENT AND DRAINING.
--- NOTE | 2018-11-16 08:22 | NUR ---
PT WAS IMPATIENTLY WAITING FOR HER ANTIBIOTIC, AND WAS ANGRY WHEN STAFF ARRIVED TO GIVE IT TO HER. "WHAT TAKES SO LONG TO GET A GOD D@#* ANTIBIOTIC!" STAFF EXPLAINED THE MED IS NOT DUE TO BE GIVEN FOR ANOTHER 45 MINUTES. PT UNHAPPY THAT THE PAIN WITH URINATION IS NOT GONE YET. DOSE PER EMAR IS 1/2 TAB OF 500MG TAB. WHEN GIVEN TO THE PT SHE BECAME IRATE THAT STAFF WERE NOT GIVING HER ENOUGH ANTIBIOTIC AND REFUSED TO TAKE IT. CALLED PHARMACY TO SEE IF WE CARRY A 250MG TAB, WE DO NOT. PT BEGAN CURSING AND STATING THAT SHE WANTS TO SEE THAT DOCTOR SO SHE CAN TELL HIM HE IS NOT GIVING HER ENOUGH MEDICATION (WITH ADDED EXPLITIVES REMOVED). WILL SPEAK TO THE HOSPITALIST ON MORNING ROUNDS. OFFERED TO SPEAK TO THE DOCTOR ABOUT URINARY PAIN RELIEF MEDICINE BUT PT DECLINED TO TAKE IT EVEN IF IT WERE ORDERED.
--- NOTE | 2018-11-16 11:17 | NUR ---
PT CALLED STAFF AGAIN WANTING HER ANTIBIOTIC- STAFF EXPLAINED THAT A HALF TAB IS THE RIGHT DOSE. PT REFUSES TO TAKE A HALF TAB. PT REQUESTED THAT STAFF CALL DR ORANTES FOR HER ABX CHANGE. ABX ORDERED BY HOSPITALIST. CALLED DR RODRÍGUEZ. ORDER CHANGED SO PT WILL TAKE THE MEDICATION.
--- NOTE | 2018-11-16 11:34 | NUR ---
CALLED PHARMACY NOT TOO LATE FOR PT TO RECIEVE MORNING DOSE OF BID CIPRO, NEW ORDER FOR 500MG ORDERED TO START TONIGHT. WILL PLACE A OT ORDER FOR NOW FOR THE MISSED MORNING DOSE.
--- NOTE | 2018-11-16 11:50 | NUR ---
PT HAS CONVEYED SADNESS ABOUT HAVING TO LEAVE HER HOME TO MOVE TO ASSISTED LIVING. PT STATED SHE WOULD LIKE TO GO TO [facility] IN [place]. WILL PASS ON TO WELL SERVICES OPERATOR WHEN SHE COMES TO SEE THE PT.
--- NOTE | 2018-11-16 15:16 | NUR ---
PATIENT CONTINUES TO REFUSE CARE. SHE WILL NOT ALLOW STAFF TO CHANGE HER ATTENDS, TAKE VITALS, CBGS, OR ANY OTHER CARE.
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
--- NOTE | 2018-11-16 18:46 | NUR ---
SHIFT SUMMARY- PT HAS BEEN REFUSING ALL CARE T/O THE DAY. NO ACUTE CHANGES.
--- NOTE | 2018-11-16 23:12 | NUR ---
REFUSING CARE PATIENT ALLOWED SOME VITALS TO BE OBTAINED TONIGHT BUT REFUSED TO HAVE HER BLOOD PRESSURE TAKEN PER MARIBETH GRAF. PATIENT ALSO REFUSED TO HAVE HER BLOOD SUGAR CHECKED. ALL MEDICATIONS REFUSED EXCEPT FOR HER ABX. PATIENT REFUSING ALL OTHER CARE AT THIST TIME. PATIENT REFUSING TO TURN, ALLOW RN TO PERFORM A FULL ASSESSMENT, OR ALLOW WOUNDS TO BE ASSESSED AND DRESSINGS CHANGED. PATIENT KEEPS STATING, "IT DOESN'T CONCERN YOU" IN RESPONSE TO MOST QUESTIONS TONIGHT. WILL CONTINUE TO ATTEMPT TO PROVIDE CARE THROUGHOUT THE NIGHT.
--- NOTE | 2018-11-17 03:43 | NUR ---
UPDATE PATIENT REQUESTED CATHETER CARE TO BE DONE AND THEN WOULD NOT ALLOW IT TO BE FULLY COMPLETED. PATIENT KEPT STATING, "IT NEEDS TO BE DONE, NOBODY EVER DOES IT." BUT WHEN CATHETER CARE WAS ATTEMPTED BY STAFF SHE WOULD NOT ALLOW IT TO BE PERFORMED CORRECTLY OR THROUGHLY BECAUSE IT HURT TOO MUCH. PAIN MEDICATION OFFERED TO PATIENT AND PATIENT REFUSED PAIN MEDICATION. PATIENT STATED THAT THE WOUND DRESSING ON HER BOTTOM NEEDS TO BE CHANGED. WHEN RN OFFERED TO CHANGE DRESSING SHE STATED, "NOT RIGHT NOW HONEY, I'LL LET YOU KNOW WHEN I'M READY."
--- NOTE | 2018-11-17 08:35 | NUR ---
SHIFT SUMMARY PATIENT CONTINUED TO REFUSE MOST CARE THROUGHOUT THE NIGHT. PATIENT REFUSED TURNING. PATIENT REFUSED WOUND CARE AND DRESSING CHANGES EVERY TIME IT WAS OFFERED. PATIENT APPEARD TO SLEEP WELL FOR SEVERAL HOURS LAST NIGHT. PATIENT CONTINUED TO REFUSE PAIN MEDICATION. PATIENT ALLOWED SOME VITALS SIGNS TO BE TAKEN BUT REFUSED TO HAVE HER BLOOD PRESSURE TAKEN AGAIN THIS AM. PATIENT ALSO REQUESTED A LAB DRAW TO "CHECK HER KIDNEY'S" THIS MORNING AND THEN REFUSED IT WHEN LAB CAME TO DRAW HER THIS AM. REPORT GIVEN TO ONCOMING RN.
--- NOTE | 2018-11-17 10:30 | NUR ---
NURSE ENTERED ROOM TO DISCUSS MORNING MEDICATIONS WITH PATIENT. PATIENT EDUCATED ABOUT WHICH MEDICATIONS WERE DUE. PT AGREED TO TAKE MEDICATIONS AT THAT TIME. NURSE PULLED MEDICATIONS FROM [employer] AND THEN SCANNED PATIENT AND THEN MEDICATIONS. AT THAT TIME PT REFUSED TO STATE HER NAME AND BIRTHDAY STATING THAT SHE WASN'T GOING TO TELL ME. THIS NURSE THEN ASKED IF THE NAME AND BIRTHDAY ON HER WRISTBAND WERE CORRECT. PT REFUSED TO ANSWER STATING THAT "OTHER NURSES DONT MAKE HER TELL THEM." PT ALSO REFUSED TO TAKE MEDICATIONS WITH NURSE IN ROOM STATING THAT "OTHER NURSES LEAVE THE PILLS AND SHE TAKES THEM AFTER THE NURSE LEAVES." THIS NURSE EDUCATED HER REGARDING POLICY. PT REFUSED MEDS AT THIS POINT. REGARDING INSULIN, PT WAS ASKED WHERE SHE WOULD LIKE THE INJECTION GIVEN ("FOR EXAMPLE IN THE ARM OR BELLY?") PT STATED "IF YOU POKE ME IN THE ARM, I'LL HIT YOU!". NURSE THEN STATED "YOU WILL NOT HIT ME. WOULD YOU LIKE IT IN THE BELLY?" PT THEN JUST STARED AHEAD, REFUSING TO ANSWER. NURSE NOT COMFORTABLE INJECTING THE PATIENT IF THERES A CHANCE SHE IS GOING TO BE COMBATIVE. NURSE THEN ASKED IF SHE COULD ASSESS THE PT. PT REFUSED AND THEN PROCEEDED TO CALL NURSE SHEEBAIBLE CURSE WORDS. NURSE LEFT ROOM AND EXPLAINED SITUATION TO CLINICAL SUPERVISORM EH PEACOCK RN. PT ALSO UPSET ABOUT LAB DRAW. SHE STATED THAT SHE HAS BEEN WAITING ALL NIGHT TO BE DRAWN. THIS NURSE WAS TOLD IN REPORT THAT PT REFUSED LAB DRAW THIS MORNING. PT DENIES THIS. AT 1045 LAB CALLED THIS NURSE AND STATED THAT DR ORANTES'S OFFICE INQUIRED ABOUT HER RESULTS. THIS NURSE INSTRUCTED LAB TO ATTEMPT AGAIN. LAB AGREES. PT CONTINUES TO BE UPSET, CALLING NURSE NAMES
[2018-11-17 11:27] LABS: Albumin, Blood 2.6 g/dL (3.4-5.0); Anion Gap 7 mmol/L (6-16); Blood Urea Nitrogen 12 mg/dL (8-24); Bun/Creatinine Ratio 21.5 (12.0-20.0); CO2, Blood 30 mmol/L (21-32); Calcium, Blood 10.2 mg/dL (8.5-10.1); Chloride, Blood 102 mmol/L (98-108); Creatinine, Blood 0.56 mg/dL (0.40-1.00); Glomerular Filtration Rate >60 (60-); Glucose, Blood 170 mg/dL (70-99); Phosphorus, Blood 3.2 mg/dL (2.5-4.9); Sodium, Blood 139 mmol/L (136-145)
--- NOTE | 2018-11-17 14:28 | NUR ---
PT REFUSES WOUND CARE AGAIN AT THIS TIME
--- NOTE | 2018-11-17 18:19 | NUR ---
SHIFT SUMMARY, PT REFUSED CARE THE ENTIRE SHIFT. BED IN LOW POSITION, CALL LIGHT WITHIN REACH.
--- NOTE | 2018-11-17 21:06 | NUR ---
PT REFUSED TO TAKE ORAL MEDICATIONS WHILE RN WAS IN THE ROOM. RN STOOD OUTSIDE THE ROOM, MAINTAINING VISUAL CONTACT WITH PT. AFTER A COUPLE MINUTES, THIS RN SAW THE PT TAKE MEDICATIONS APPROPRIATELY.
--- NOTE | 2018-11-18 03:57 | NUR ---
SHIFT SUMMARY PT CONTINUES TO DECLINE TURNING AND REPOSITIONING. THIS RN HAS ASKED PT MULTIPLE TIMES. THIS RN HAS ALSO ASKED TO CHANGE PT'S DRESSINGS AND AGAIN, PT REFUSED. PT HAS HAD NO REQUESTS THUS FAR AND JUST WANTS TO BE "LEFT ALONE". PT REFUSES TO ALLOW BP TO BE TAKEN, BUT, THUS FAR HAS ALLOWED OTHER VS TO BE TAKEN. NO OTHER COMPLAINTS AT THIS TIME. WILL CONTINUE TO MONITOR.
--- NOTE | 2018-11-18 08:05 | NUR ---
PATIENT REFUSED FOR THIS RN TO ASSESS HER SKIN, LUNGS, HEART SOUNDS. REFUSED TO ANSWER IF SHE IS IN ANY PAIN OR DISCOMFORT. SHE REFUSED TO HAVE HER BLOOD SUGARS CHECKED THIS AM.
--- NOTE | 2018-11-18 11:16 | NUR ---
THIS RN ASKED TO TURN AND CHANGE PATIENT WOUND DRESSINGS. PATIENT REFUSED.
--- NOTE | 2018-11-18 16:24 | NUR ---
SHIFT SUMMARY PATIENT HAS REFUSED WOUND DRESSING CHANGES TODAY. REFUSED TURNS. STATED "LEAVE ME ALONE, LEAVE ME IN PEACE" ANY TIME THIS RN ATTEMPTED TO PROVIDE CARES.
--- NOTE | 2018-11-18 21:55 | NUR ---
PT REFUSED NIGHT TIME MEDICATION AND HS GLUCOSE CHECK AT THIS TIME. PT ALSO REFUSED TO LET THIS RN ASSESS ANY OF HER BODY SYSTEMS. WHEN ASKED IF THE PT WAS IN PAIN THE PT STATED "I'M ONLY GETTING AGGRAVATED WITH YOU BEING HER. LEAVE ME ALONE". PT ALSO REFUSED TO BE TURNED AND REPOSITIONED AT THIS TIME. WILL CONTINUE TO MONITOR PT.
--- NOTE | 2018-11-19 03:19 | NUR ---
SHIFT SUMMARY PT CONTINUES TO REFUSE TURNING AND REPOSITIONING AND WOUND CARE AT THIS TIME. PT EDUCATED ON THE IMPORTANCE OF BOTH, BUT STILL REFUSES. PT SUPPLIED WITH NEW COLOURING PAGES PER HER REQUEST. NO COMPLAINTS OF PAIN OF YET. PT ALSO CONTINUES TO REFUSE BP TO BE TAKEN. WILL CONTINUE TO MONITOR PT AT THIS TIME.
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
--- NOTE | 2018-11-19 08:23 | NUR ---
CBG REFUSAL: PT REFUSED TO STATE HER TO THIS RN BECAUSE "I DON'T HAVE TO TELL YOU ANYTHING." PT WAS INFORMED BY THIS RN THAT HER WAS NEEDED IN ORDER TO PROPERLY IDENTIFY HER FOR HER CBG. PT STATED, "GET OUT THEN." NOTIFIED ANNITA KESSLER RN.
--- NOTE | 2018-11-19 19:31 | NUR ---
UTI SYMPTOMS- PT COMPLAINING OF BURNING AND DISCOMFORT BLADDER AREA STATING IT HURTS ANYTIME SHE HAS TO PEE. PT HAS A RO, DRAINING CLOUDY URINE. CALLED DR ORANTES AROUND 1500 FOR PT'S COMPLAINTS, NEW ORDER FOR ANTIBIOTICS, BLADDER AND RENAL US STAT, [facility] CONSULT- CALLED AND LEFT MESSAGE. IV STARTED. PLACED NEW 14FR CATH AND BAG AND SENT UA. OLD RO WOULDN'T FLUSH AT ALL, THUS REQUIRING REPLACEMENT.
--- NOTE | 2018-11-19 19:35 | NUR ---
SUMMARY- PT ALERT AND ORIENTED RESISTANT TO NURSING CARE. PT AGREED TO ALLOW DRESSING CHANGE TO COCCYX AND RO CATH CARE AROUND NOON. DRESSING WAS SATURATED WITH FOUL SMELLING BROWN EXUDATE LEAKING OUT OF DRESSING AND AROUND WOUND. CLEANSED WOUND WITH NS AND SKINTEGRITY, AREA BLEEDING ALOT AND PINK TO RED, 20% YELLOW ESCHAR, SURROUNDING SKIN WITH SKINTEGRITY, CHICHI ALG TO WOUND, MEPILEX. ABD SKIN FOLD OPEN AREA L ABD, CLEANSED AND DRIED, POWDER TO ALL FOLDS. VAGINA RED, EXCORIATED AND PAINFUL TO CLEAN. CHANGED LINENS, PT GIVEN LUNCH. REFUSED FOR RN TO DERRELL LE DRESSINGS.
--- NOTE | 2018-11-19 19:39 | NUR ---
brought pt a pencile sharpener. She yelled the whole time about her UTI. held boundries with her and limited the conversation. plan is to meet with Marlo velazquez for a plan.
--- NOTE | 2018-11-19 20:30 | NUR ---
ASSUMED CARE OF THE PATIENT, INTRODUCED SELF AND DISCUSSED PLAN OF CARE WITH HER INCLUDING BED CHANGE, REPOSITIONING. SHE REFUSED TO HAVE ANY OF THIS DONE, DISPITE THE ODOR OF THE ROOM AND THAT HER BED WAS WET. DISCUSSED RISK OF INFECTION, AND POOR HYGEINE AND SHE STILL REFUSED. INFORMED CHARGE NURSE OF THIS, WHICH IT WAS DECIDED TO SHE WILL NEED TO HAVE BED CHANGE.
[2018-11-19 20:45] LABS: Source, Urine Catheter
[2018-11-19 20:48] LABS: Bilirubin, Urine Neg (Neg); Blood, Urine Neg (Neg); Glucose Qualitative, Urine Neg (Neg); Ketones, Urine Neg (Neg); Leukocyte Esterase, Urine Neg (Neg); Nitrite, Urine Neg (Neg); Protein, Urine Neg (Neg); Urobilinogen, Urine NORM (Normal); pH, Urine 6.5 (5.0-8.0)
[2018-11-19 20:53] LABS: Appearance, Urine Clear (Clear); Color, Urine Yellow (P-Yellow)
--- NOTE | 2018-11-19 22:50 | NUR ---
WENT IN ROOM TO INFORM NADIYA THAT SHE NEEDED A BED CHANGE, ACCOMPIED BY CLINICAL COORDINATOR AND PATTERN AND CHAIN MAKER. SHE REFUSED TO HAVE IT DONE, DISPITE THAT SHE SIGNED A BEHAVORIAL CONTRACT, SHE YELLED AND SCREAMED AT THE TOP OF HER LUNGS. HAD TO CLOSE THE DOOR IN ORDER TO NOT DISTURB THE OTHER PATIENTS. SHE THEN AGREED TO NO LONGER YELL, BUT STILL COMPLAINTED DURING THE ENTIRE PROCESS THAT SHE DID NOT WANT THE HELP AND WOULD RATHER WE LEAVE THE WET MATERIAL UNDERNEATH HER. AFTER GETTING THE BED CHANGE SHE STARTED TO CALM DOWN, BUT WAS STILL RUDE TO THE STAFF, MAD AND DID NOT WANT ANY MORE TO BE DONE THE REST OF THE NIGHT. SHE EVEN REFUSED TO HAVE HER BLOOD SUGARS CHECKED, OR TAKE HER INSULIN. ONLY PILL SHE TOOK WAS HER SINGLAR. SHE REFUSED EVERYTHING ELSE. DISCUSSED COMMING BACK IN 2 HOURS TO REPOSITION HER AND SHE REFUSED, GETTING MAD, TELLING ME THAT i BETTER NOT COME BACK INTO THE ROOM. THEN TOLD ME TO GET OUT.
--- NOTE | 2018-11-20 05:35 | NUR ---
SHIFT SUMMARY: NADIYA HAD HER LINEN CHANGED AT START OF SHIFT WITH A REPOSITION. SHE REFUSED ALL OF HER MEDS EXCEPT HER SINGULAR. REFUSED HER CBG TO BE TAKEN. AND REFUSED ANY OTHER POSITION CHANGES THROUGHOUT THE NIGHT. SHE DID NOT WANT TO BE DISTURBED AND LEFT ALONE. WHEN ATTEMPTED TO WAKE HER FOR A POSITION CHANGE SHE WOULD GET ANGRY AND TELL STAFF TO GO AWAY AND LEAVE HER ALONE. THEREFORE SHE ONLY GOT ONE REPOSITION AT THE START OF THE SHIFT. SHE ALSO REFUSED VITALS, AND LAB IN THE MORNING. WILL REPORT TO DAY SHIFT.
--- NOTE | 2018-11-20 09:39 | NUR ---
patient refsused assessment. will place a visual assessment in the computer.
--- NOTE | 2018-11-20 09:44 | NUR ---
Late entry for teleconfernce discussion with HYPOID GEAR TESTER, Care Management and Adult and Protective Services. A detailed report was provided to [facility]D outlining Liberty's ongoing medical non-adherence, her stubborn declinitions to be readmitted to the local custodial facility, and her gerneralized aggressive and non-cooperative attitude with internal clinical disciplines. I informed [facility] that we would very much like to see [facility] act in the interest of her own health and make decisions consistent with her recovery and well-being, but the hospital is not in a position to force her to participate, or leverage her into acting reasonably or healthily. I respectfully told [facility] that if Liberty's recalcitrance persists, we will have no choice but to DC her home. [facility] understands that F[facility] constant declininations of care and service are not conducive with her remaining hospitalized. If we elect to discharge Liberty home, [facility] needs to be informed with a courteous advance notification so they can dispatch appropriate caregivers. The probability that she will re-present to the ED for wound care and diaper changes is extremely high. She has an unfortunate and counterproductive history of not allowing in home resources to assist her. Tragically we have no way of controlling or influencing this, as Libertys greatest adversary appears to be her own free moral agency. The HYPOID GEAR TESTER is aware of these challenges and will facilitate the needed conversations with ED staff. Perhaps Liberty will eventually succumb to being readmitted to the local [facility] SNF so that she can work towards a better senior living outcome. Thank you for this consult. Marlo Hansen DMin
--- NOTE | 2018-11-20 11:25 | NUR ---
PATIENT REFUSED TO HAVE HER BLOOD SUGAR TAKEN AT LUNCH TIME. NO ACUTE CONCERNS AT THIS TIME. PATIENT STILL REFUSING CARE.
--- NOTE | 2018-11-20 18:09 | NUR ---
SHIFT SUMMARY PATIENT HAS BEEN REFUSING CARE TODAY. SHE REFUSED HER LUNCH AND DINNER BLOOD SUGAR CHECKS. I SPOKE WITH DR. GUTIERREZ WHO AGREED TO MOVE HER BLOOD SUGAR CHECKS TO PRN, THE PATIENT WILL ASK IF SHE DOES NOT FEEL GOOD. CURRENTLY THE PATIENT HAS NOT BEEN YELLING AT STAFF TODAY. SHE STILL DOES NOT WANT CARE, AND JUST WANTS TO COLOR ON HER COLORING PAGES.
--- NOTE | 2018-11-20 19:55 | NUR ---
ASSUMED CARE OF THE PATIENT: PATIENT WATCHING TV COLORING PAGES. DENIES ANY NEEDS OR CONCERNS. STATES SHE IS DOING FINE, REFUSED TO BE REPOSITIONED. ASSESSMENT COMPLETED. WILL CONTINUE TO MONITOR.
--- NOTE | 2018-11-21 02:45 | NUR ---
ABOUT A 1/2 HOUR AGO NADIYA HAD CALLED FOR ASSISTANCE TO HAVE A BOWEL MOVMENT. SUPPLIES WERE GATHERED, STARTED TO GET READY TO ROLL HER OVER AND HAD MOVED THE CATHETER TO THE OPPOSITE SIDE OF THE BED PER HER REQUEST. SHE COMPLAINED THAT THE TUBING WAS GOING TO RUB BETWEEN HER LEGS AND HURT HER. SO BUT SHE DID NOT WANT IT BETWEEN HER LEGS ON THE BED. MOVED IT SLIGHTLY TOUCHING THE CATHETER ITSELF AND NOT THE BAG TUBING AND SHE YELLED STATING THAT I PULLED ON THE CATHETER TRYING TO PULL IT OUT. INFORMED HER THAT I WAS NOT TRYING TO PULL IT OUT JUT MOVED IT, BUT SHE BEGAN TO CRY AND SAID IT HURTS NOW AND NOT TO TOUCH IT. OFFERED TO MOVE IT MORE AND SHE YELLED AT THE SILVICULTURIST AND I TO LEAVE THE ROOM SHE NO LONGER WANTED ANYONE IN THE ROOM. APPLOGIZED TO HER THAT IF IT HURT IT WAS NOT THE INTENTION, BUT SHE WAS DONE AT THIS TIME. LEFT THE ROOM PER HER REQUEST. SHE WENT BACK TO SLEEP SHORTLY AFTERWARDS.
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
--- NOTE | 2018-11-21 07:06 | NUR ---
PATIENT NEEDED TO HAVE A BOWEL MOVEMENT, SHE HAD A LARGE HARD STOOL. DRESSING WAS OFF AND HAD BEEN SATURATED FULL OF BLOODY, SEROUS DRAINAGE, AND STOOL IN THE WOUND. REMOVED DRESSING, AND THERE WAS SEVERAL BLOOD CLOTS NOTED IN THE WOUND BED. WOUND HAD A MILD FOUL ODOR TO IT. SHE WOULD NOT ALLOW ME TO CLEANSE THE WOUND WELL ENOUGH, SHE WAS YELLING AT ME TO HURRY. WAS NOT ABLE TO GET A PICTURE OR MEASURE DUE TO THIS. WOUND HAD GRANULATION TISSUE, WITH SOME SLOUGH, EDGES PINK AND SLIGHTLY ROLLED. APPLIED CALCIUM ALGINATE IN THE WOUND, AND COVERED WITH MEPLIX. CHANGED SHEETS AND PADDING UNDERNEATH HER. WHICH WAS SATURATED WITH WOUND DRAINAGE. WOUND NEEDS TO BE CHANGED MORE OFTEN I TOLD HER BUT SHE DID NOT SAY ANYTHING. REPOSITIONED HER IN BED. INFORMED DAY SHIFT OF CHANGE. UNABLE TO DO DRESSINGS TO BLE SHE REFUSED THEM TO BE CHANGED.
--- NOTE | 2018-11-21 08:44 | NUR ---
patient requested to have stat lock removed from castillo. this rn educated the purpose of a stat lock. patient continued to refuse. she then refused to have the castillo clamped to the edge of the bed. this rn educated patient on the purpose of clasp. patient continued to refuse.
[2018-11-21 09:25] LABS: Hematocrit 42.2 % (33.0-51.0); Hemoglobin 13.4 g/dL (11.5-16.0)
[2018-11-21 10:17] LABS: Source, Urine Catheter
[2018-11-21 10:20] LABS: Blood, Urine 2+ (Neg); Glucose Qualitative, Urine Neg (Neg); Ketones, Urine Neg (Neg); Leukocyte Esterase, Urine 3+ (Neg); Nitrite, Urine Pos (Neg); Protein, Urine Neg (Neg); Urobilinogen, Urine 3+ (Normal)
[2018-11-21 10:28] LABS: Appearance, Urine Hazy (Clear); Bilirubin, Urine 1+ (Neg); Color, Urine Orange (P-Yellow)
[2018-11-21 10:50] LABS: Bacteria Many /hpf; Squamous Epithelial Cells Many /hpf (Few); Yeast/Fungi Urine Many /hpf
[2018-11-21 10:51] LABS: Amorphous Light (0-Heavy)
--- NOTE | 2018-11-21 17:51 | NUR ---
PT AOX3 WITH A LOT OF CONFUSION AND HOSTILITY. PT REFUSES ALMOST ALL CARE AND CARE HAS TO BE DONE AGAINST HER WISHES. PT WAS FOUND TO HAVE HER RO CATH OUT AT START OF SHIFT AND WHOLE BED WAS WET. PT TRIED TO TELL ALL AIDS AND THIS CORRECTIONAL NURSE TO LEAVE HER ROOM. IN THE SAME BREATH SHE KNEW SHE NEEDED HER RO CATH SHE DOES NOT GET OUT OF BED OR LET PEOPLE TURN HER. TWO AIDS AND THIS CORRECTIONAL NURSE PLACED CATH KEEP STERILE TECHNIQUE. PT DID A LOT OF YELLING THROUGHOUT THE PROCEDURE. SHEETS WERE CHANGED AND PT WAS CLEANED WELL. PT VERBALLY DID NOT WAS THIS NEEDED CARE. PT DID SETTLE DOWN ONCE JOB WAS COMPLETED. PT ALSO WANTED IV OUT. ORDER WAS RECIEVED TO REMOVE IV AND THEN SHE REFUSED TO HAVE IV OUT WELL. PT HAS BEEN OFFERED BY THIS CORRECTIONAL NURSE AND HER AIDS TO BE TURNED AND CARED FOR ALL DAY AND REFUSES OFFERS. PT HAS REFUSED CBGs AND ALL MEDICATIONS. WILL CONTINUE TO MONITOR.
--- NOTE | 2018-11-21 20:38 | NUR ---
REFUSAL OF CARE 2034 INTRODUCED SELF AND PT ASKED "WHAT DO YOU HAVE WITH YOU". EXPLAINED THAT THOSE WERE HER MEDICATIONS. PT ASKED WHAT THE MEDICATIONS WERE. TOLD HER THE NAMES, PT STATES "NO". THIS RN ASKED "NO TO WHAT". PT STATES "NO TO ALL". EXPLAINED THAT I WAS GOING TO MOVE TRAY AWAY SO THAT I COULD DO AN ASSESMENT. PT STATES, "GO AWAY, LEAVE ME ALONE, IM BREATHING FINE AND EVERYTHING IS FINE." RESUED VS. REFUSED CHEM BG's. REFUSED IV FLUSH, STATES "NOTHING GOING IN ANYWAYS, LEAVE IT ALONE." WANTS NO CARE DONE AT ALL.
--- NOTE | 2018-11-21 21:00 | NUR ---
pt did not want any people in her room, she was agitated and had just woke up, pt was refusing care and did not want to be helped.
--- NOTE | 2018-11-21 23:35 | NUR ---
REFUSED TO HAVE IV FLUSHED.
--- NOTE | 2018-11-22 04:45 | NUR ---
SHIFT SUMMARY ALERT, ABLE TO MAKE NEEDS KNOWN. REFUSED ALL CARES AT BEGINNING OF SHIFT. AFTER SOME TIME, THIS RN WENT BACK IN TO RE-ADDRESS THE MEDICATIONS TO BE OFFERED AND SHE STATED THAT SHE WOULD TAKE THEM EXCEPT FOR THE LONG ACTING INSULIN. APPEARED TO BE IN A MUCH BETTER MOOD. ALLOWED FOR BLOOD SUGAR LEVEL TO BE TAKEN AND ALL VS EXCEPT BLOOD PRESSURE, STATED IT SQUEEZES AND HURTS TOO MUCH. THIS AM WILL ADDRESS THE NEED FOR DRESSING CHANGES TO BE COMPLETED SHE DID NOT ALLOW THIS RN TO DO A FULL ASSESSMENT. WCTM. BED REMAINS IN LOWEST POSITION. CALL LIGHT AND BELONGINGS WITHIN REACH. REPORT TO ONCOMING RN.
--- NOTE | 2018-11-22 05:50 | NUR ---
REFUSAL 0540 ADDRESSED WOUND CARE WITH PATIENT. ADAMANT THAT SHE DOES NOT NEED THE WOUND CARE. AKSED PATIENT IF SHE KNEW HOW SHE ENDED UP WITH WOUND, SHE STATED "[place]". REPLIED, "HOW WAS THAT"? PT "I WAS SITTING IN URINE ALL THE TIME". STATES, "THEY (STAFF) USUALLY CHANGE THE DRESSING WHEN I POOP". THIS RN RESPONSE "WELL YOU DID NOT HAVE A BM TONIGHT". PT STATES "I KNOW AND IT IS NOT BEING CHANGED, I KNOW IT DOESN'T NEED IT". THIS RN TRIED TO EDUCATE PATIENT THE REASON BEHIND GOOD WOUND CARE, WAS CONTINUOUSLY INTERUPTED BY PATIENT STATING IT WAS NOT GOING TO BE CHANGED THIS MORNING PERIOD. EXPLAINED THAT DRESSINGS NEED TO BE CHANGED MUCH MORE FREQUENTLY THAN WHEN SHE POOPS. CARMEN.
--- NOTE | 2018-11-22 06:08 | NUR ---
pt did not want to have her BP taken because she says it hurts. Pt also refused care from nurse about having wound care dressings changed. Pt did not seem to have much of a behavior tonight toward me.
--- NOTE | 2018-11-22 17:51 | NUR ---
PT CONTINUES TO REFUSE CARE AND ANY KIND OF MEDICATIONS TODAY. PT DID A LOT OF LONG NAPS, BUT SEEMS TO BE EATING HER MEALS. THIS CYBER OPERATOR DID HAVE ONE PLEASANT CONVERSATION WITH HER AND THIS WAS A NICE CHANGE. PT'S CATH FLOWING AND IN PLACE. CALL LIGHT WITHIN REACH, WILL CONTINUE TO MONITOR.
--- NOTE | 2018-11-23 07:59 | NUR ---
SUMMARY PT REFUSING MOST OF CARE AND FULL SHIFT ASSESSMENT TONIGHT.SLEEPIGN THIS AM.
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
--- NOTE | 2018-11-23 18:27 | NUR ---
SHIFT SUMMARY PATIENT REFUSING BLOOD SUGAR CHECKS, VITALS, AND ASSESSMENT. BRIEF VISUAL ASSESSMENT CHARTED. RO DRAINING ADEQUATE AMOUNT OF ORANGE URINE. PT ACCEPTED AM MEDS AND 20 UNITS OF SCHEDULED AM [facility] THAT SHE ADMINISTERED HERSELF. PT SEEMED AWAKE MOST OF SHIFT, DOING ACTIVITIES ON HER BEDSIDE TABLE AND EATING SOME OF EACH MEAL. PT USING CALL LIGHT APPROPRIATELY. PT REFUSED TO BE TURNED OR HER FEET TO BE TOUCHED. PT REQUESTED IV TO BE REMOVED, DIRECTOR OF PUPIL PERSONNEL PROGRAM AND ATTENDING HOSPITALIST CONSULTED. WE ARE NOT USING IV AT THIS TIME SO IT WAS REMOVED BY THIS RN.
[2018-11-23 20:25] LABS: Albumin, Blood 2.8 g/dL (3.4-5.0); Anion Gap 8 mmol/L (6-16); Blood Urea Nitrogen 14 mg/dL (8-24); Bun/Creatinine Ratio 26.8 (12.0-20.0); CO2, Blood 28 mmol/L (21-32); Calcium, Blood 10.4 mg/dL (8.5-10.1); Chloride, Blood 102 mmol/L (98-108); Creatinine, Blood 0.52 mg/dL (0.40-1.00); Glomerular Filtration Rate >60 (60-); Glucose, Blood 142 mg/dL (70-99); Magnesium, Blood 1.3 mg/dL (1.6-2.4); Phosphorus, Blood 2.9 mg/dL (2.5-4.9); Potassium, Blood 4.8 mmol/L (3.5-5.5); Sodium, Blood 138 mmol/L (136-145)
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
--- NOTE | 2018-11-24 04:09 | NUR ---
PT continues to refuse treatments for decubitus ulcer stage 4 to buttocks, coccyx. PT says " it isn't going to heal so why bother"??. Offered to change bilat le dressings and PT refused. She co " no one is doing the dressing changes" but when approached she refuses. She refuses turning and medications, blood glucose checks. Has castillo cath placed to promote wound healing, requests pyridium x 1 . Has delusions says " she is getting out of here this place is a hellhole, getting on a plane to [place] says, " she will stop by the hospital where they will send her to rehab." continues to be hostile with staff and expect what she wants when she wants it and in violation of standard hospital practices. Able to call out on her cellphone to Son.
--- NOTE | 2018-11-24 17:06 | NUR ---
SHIFT SUMMARY NO ACUTE CHANGES. PATIENT DENIES NAUSEA, AND SHORTNESS OF BREATH. REPORTS PAIN ONLY WITH MOVEMENT, DECLINES PAIN MEDICATION. PATIENT REFUSES BLOOD SUGAR TESTING AND SHORT ACTING INSULIN. PATIENT AGREED TO AND THEN REFUSED WOUND CARE BECAUSE SHE STATED SHE DID NOT LIKE THE SUPPLIES OFFERED. PATIENT LATER BECAME VERY UPSET WHEN STAFF INFORMED HER THAT WE COULD NOT TAKE HER CREDIT CARD TO THE [employer] TO MAKE PURCHASES. THE PATIENT ADVOCATE WAS CALLED ON BEHALF OF THE PATIENT AND MESSAGE LEFT. THE PATIENT WAS VERY ANGRY WHEN SHE LEARNED THE ADVOCATE WAS NOT AVAIABLE AND BEGAN CURSING AT STAFF. CALL LIGHT IN REACH.
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
--- NOTE | 2018-11-25 06:33 | NUR ---
call to update on refusals of standard cares and vitals and treatments for complex wounds. JASE WORLEY updated on continued refusals and abusive behaviors. Also refusal for Psych evaluation with no determination made as to PT's ability to make compentent decisions. She is able to communicate and she intermittantly will request something but when attempt to complete care or tx she screams and makes unrealistic conditions to allow processing such as dont move me or my bedside table. Then screams I don't want this staff or that staff involved in cares and begins demeaning tirade of insults.
--- NOTE | 2018-11-25 18:03 | NUR ---
SHIFT SUMMARY PATIENT DECLINED SHIFT ASSESSMENT, MEDICATIONS, AND WOUND CARE THIS SHIFT. PATIENT WAS PLEASANT BUT REFUSED ALL NURSING CARE INCLUDING VITAL SIGNS AND CBG'S. PATIENT STATES SHE FEELS FINE AND HAS NO PAIN UNLESS SHE IS REQUIRED TO MOVE. PATIENT DECLINES PAIN MEDICATION. PATIENT ADVOCATE VISITED WITH PATIENT THIS MORNING. CALL LIGHT IN REACH.
--- NOTE | 2018-11-26 07:10 | NUR ---
SHIFT SUMMARY PT REFUSED CHEM BG CHECK, BP. HAD XLARGE HARD FORMED BM. CHANGED COCCYX AND LEG DRESSINGS. PRACHI CATH CARE DONE. REFUSED TURNING BUT WAS FLOATED ON PILLOWS T/O NIGHT. SHE DOZED T/O NIGHT. RO DRAINING.
--- NOTE | 2018-11-26 14:54 | NUR ---
SHIFT SUMMARY NO ACUTE CHANGES. PATIENT DECLINED WOUND CARE, SOME MEDICATIONS, AND A FULL ASSESSMENT BUT WAS PLEASANT AND COURTEOUS. PATIENT DENIES PAIN, NAUSEA, AND HSORTNESS OF BREATH. PATIENT COLORING, WATCHING TV, AND NAPPING DURING SHIFT. CALL LIGHT IN REACH.
--- NOTE | 2018-11-26 17:14 | NUR ---
Spiritual Care routine visit: Liberty was talkative today. She told me long, winding stories from her life--often becoming side-tracked mid-story and moving on to another tale. She tells me she has been talking to her sister in [place] and they are both pleased with plan. Liberty explained, in great detail, her requirements for travel. It is unclear to me that this plan is viable, but Liberty appears to be counting on it's fruition. Liberty became tearful during several points in today's visit. But she became irritable when I attempted to explore her tearfulness on a deeper level. [employer] will remain available.
--- NOTE | 2018-11-26 21:36 | NUR ---
pt refusing all cares and her pm meds and resp tx.
--- NOTE | 2018-11-27 03:50 | NUR ---
Shift summary. Pt refuses all cares and just does not want anyone to bother her. Pt has slept all night. Pt refusing medications, breathing Tx's, vital signs and labs.
--- NOTE | 2018-11-27 18:26 | NUR ---
SHIFT SUMMARY PATIENT STILL REFUSING SOME CARE. SHE DOES HAVE BEHAVIORAL CONCERNS TODAY. SHE WAS UNPLEASANT WITH THE DELIVERY BOY.
--- NOTE | 2018-11-27 20:50 | NUR ---
PT ALLOWED RN TO PERFORM DRESSING CHANGES AND WOUND CLEANING TO BLE.
--- NOTE | 2018-11-27 21:09 | NUR ---
PT REFUSING CBG CHECK AND ALL MEDS BESIDES SINGULAIR.
--- NOTE | 2018-11-28 05:12 | NUR ---
SHIFT SUMMARY PT HAS REFUSED ALL CARE AND MEDS TONIGHT BESIDES BLE WOUND DRESSING CHANGES AND SINGULAIR. PT HAS REFUSED REPOSITIONINGS OFFERED Q2H, RESP TX, MEDS, CBG CHECKS, AND RO/PRACHI CARE. EDUCATED PT ON THE RISKS OF REFUSING EACH INTERVENTION, PT UNPLEASANTLY DISMISSES RN AND CONVERSATION. PT RESTING IN BED AT THIS TIME, CALL LT IN REACH, ABLE TO MAKE NEEDS KNOWN. WILL CONT TO MONITOR AND PROVIDE CARE UNTIL PRESUMED BY ONCOMING RN.
--- NOTE | 2018-11-28 17:10 | NUR ---
SUMMARY PT SITTING UP IN BED WATCHING TV AND COLORING, PT HAS DECLINED TO BE TURNED WHEN IT WAS OFFERED, PT HAS DECLINED CATH CARE WHEN IT WAS OFFERED, AND PT HAS DECLINED PAIN MEDICATION WHEN IT WAS OFFERED, PT HAS BEEN QUIET FOR MOST OF THE SHIFT WITH FEW REQUESTS, HAS BEEN PLEASANT TOWARDS STAFF IF HER REQUESTS ARE MET AND IF SHE IS NOT PUSHED TO DO ANYTHING SHE DOES NOT WANT TO DO, VSS, WILL CONT TO MONITOR
--- NOTE | 2018-11-28 21:52 | NUR ---
REFUSAL PT HAS REFUSED ALL CARE AND INTERVENTIONS TONIGHT BESIDES PM SINGULAIR PILL.
--- NOTE | 2018-11-29 05:13 | NUR ---
SHIFT SUMMARY PT IS PLEASANT TONIGHT. REFUSING ALL CARE, HOWEVER IS NOT RUDE OR DEMEANING TOWARDS STAFF. PT OFFERED Q2H TURNS, RO/PRACHI CARE, PM MEDS/CBG CHECK, AND WOUND CARE BY THIS RN HOWEVER PT REFUSES EACH TIME. WILL CONT TO MONITOR AND PROVIDE CARE UNTIL PRESUMED BY ONCOMING RN.
--- NOTE | 2018-11-29 17:26 | NUR ---
SUMMARY PT AWAKE IN BED WATCHING TV AND COLORING, PT HAS DECLINED CARE WHEN ASKED, HAS BEEN PLEASANT WITH STAFF WHEN INTERACTING, HAS BEEN EDUCATED ABOUT THE IMPORTANCE OF CATH CARE AND WOUND CARE, PT CONT TO DECLINE CARES TO BE DONE "UNLESS IT'S ON MY TERMS" NO ACUTE CHANGES, WILL CONT TO MONITOR
--- NOTE | 2018-11-29 19:30 | NUR ---
ASSUMED CARE OF PT, PT IS SITTING UPRIGHT IN BED WORKING ON DINNER. PT DENIES ANY NEEDS, REFUSES VITALS AND ASSESSMENT FROM THIS RN.
--- NOTE | 2018-11-30 05:03 | NUR ---
SHIFT SUMMARY NO ACUTE CHANGES OVERNIGHT, PT IS STABLE AND NONCOMPLIANT WITH CARE. REFUSES CBG CHECK, VITAL SIGNS, REPOSITIONING, RO CATH CARE, WOUND CARE, AND MEDS (BESIDES SINGULAIR). PT IS MORE PLEASANT TONIGHT. SLEEPS WELL THRU THE NIGHT, CALL LT IN REACH AND USES APPROP. WILL CONT TO MONITOR AND PROVIDE CARE UNTIL PRESUMED BY ONCOMING RN.
--- NOTE | 2018-11-30 07:01 | NUR ---
ASSUMED CARE OF PT- PT ALERT AND ORIENTED, RECIEVED REPORT FROM NIGHT SHYLA DIALLO. PER REPORT PT HAS BEEN IN A GOOD MOOD T/O THE NIGHT AND SEEMS MORE WILLING TO ALLOW STAFF TO HELP HER. PER REPORT PT LEG WRAPS WERE CHANGED 2 DAYS AGO HOWEVER PT DECLINED WOUND CARE ON THE COCCYX. WILL ATTEMPT TODAY. PT IS REFUSING HER THYROID AND PROTONIX AT 0600 ONLY TO TAKE THEM AT 0900 (PER REPORT). CURRENTLY DOCCUMENTED REFUSED, WILL ATTEMPT ADMINISTRATION WITH OTHER MORNING MEDS. PT HAS A RO PATENT AND DRAINING AT THIS TIME, IN ISO FOR ESBL IN THE URINE.
--- NOTE | 2018-11-30 18:07 | NUR ---
As I delivered pt her supper tray I asked her if she really only ordered soup and milk. Pt response was "I ordered whatever is on my try." I said "ok just making sure." Set pt tray down and she pointed at her soup and asked what it was. I said "its soup but don't know what kind." I asked to look at the menu on her tray and she ripped it away from me and loudly said " I want to know what that is." Then she sighed at me and told me to take the lid off and once she saw it she said "oh thats pea soup. I am not eating that crap. Take it back." Looked at her menu and said "I ordered cream of broccoli." I explained that if kitchen didn't have it as a choice then they didn't make it and wasn't able to send it. Pt repeated she wasn't going to eat it. I asked if she wanted me to see what other soup was available and she just repeated she wasn't going to eat the soup on her tray. I said "ok I understand you won't eat it but would you like me to see if there is anything else you want?" she would never answer and just just lino me stupid and said she already answered me. RN notified.
--- NOTE | 2018-11-30 18:18 | NUR ---
As I was taking evening vitals, I went into pt room and talked to her about having her vital taken. She informed me she never has them taken. Says it hurts her arm and makes her heand tingle to much.
--- NOTE | 2018-11-30 18:56 | NUR ---
SHIFT SUMMARY- PT ALERT AND ORIENTED, WITH THE CALL LIGHT IN REACH. NO ACUTE CHANGE T/O THE SHIFT. PT ADIMATELY REFUSED WOUND CARE T/O THE DAY OFFERED 3 DIFFERENT TIMES T/O THE SHIFT. PT DECLINED SOME MEDICATIONS, VITALS AND BLOOD GLUCOSE CHECKS, DR RODRÍGUEZ IS AWARE.
--- NOTE | 2018-12-01 05:50 | NUR ---
SHIFT SUMMARY: PATIENT HAS BEEN STABLE, BUT NONCOMPLIANT WITH CARE. SHE HAS BEEN OFFERED HER MEDICATIONS, REPOSITIONING, VITALS SIGNS, RO CATH CARE, WOUND CARE AND LABS. AT WHICH SHE HAS REFUSED ON SEVERAL ACCOUNTS TONIGHT. SHE HAS NOT ASKED FOR ANYTHING WELL. SHE HAS BEEN PLEASANT TO STAFF TONIGHT, SLEPT WELL OFF AND ON THRU THE NIGHT, CALL LIGHT IN REACH AND USES APPROPRIATLY. WILL CONTINUE TO MONITOR AND OFFER CARE UNTIL DAY SHIFT ASSUMES CARE.
--- NOTE | 2018-12-01 07:10 | NUR ---
ASSUMED CARE OF PT- RECIEVED REPORT FROM NIGHT SHYLA JAMES, NO ACUTE CHANGES, PT REFUSED NIGHT MEDICATIONS AND WOUND CARE WHEN OFFERED. WILL ATTEMPT WOUND CARE TODAY.
--- NOTE | 2018-12-01 13:03 | NUR ---
SHIFT SUMMARY- REPORT COMPLETED WITH SHYLA ADRIAN. PT HAS HAD NO ACUTE CHANGES, IS STILL DECLINING MEDICATIONS AND WOUND CARE. OFFERED WOUND CARE TODAY AND PT WAS IRRITABLE, DECLINED WOUND CARE. PT WOULD LIKE TO GO BACK TO HER PREVIOUS ROOM AFTER IT IS DONE WITH CONSTRUCTION.
--- NOTE | 2018-12-01 18:54 | NUR ---
NO ACUTE ISSUES NOTED. PATIENT CONTINUES TO REFUSE ALL CARES AND MEDICATION ADMINISTRATION. PATIENT ALSO REFUSED EVENING BLOOD GLUCOSE CHECKS AND REPOSITIONING. NO CURRENT COMPLAINTS OF PAIN OR DISCOMFORT NOTED. WILL CONTINUE TO MONITOR FOR CHANGES.
--- NOTE | 2018-12-02 05:34 | NUR ---
SHIFT SUMMARY: NADIYA HAS AN GOOD NIGHT, WITH CARE PROVIDED. AT FIRST SHE DENIED TO HAVE CARE BUT THE NIGHT WAS GETTING STARTED SHE AGREED TO HAVE CARE. WAS ABLE TO PROVIDE NADIYA WITH A BED BATH, COMPLETE LINEN CHANGE. WOUND CARE WAS CHANGED AND MEASURED. NEW MEASUREMENTS ARE 11.3 X 9 X 2.7, PHOTOS TAKEN. NEW AREA OF DRY FLACKY SKIN NOTED ON THE LEFT BUTTOCKS CREASE FROM LEG TO BUTTOCKS. SHE DID HAVE SOME SKIN TEARS NOTED IN SKIN FOLDS, CATHETER CARE WAS PROVIDED WITH A BAG CHANGE. POSITION CHANGE WAS PROVIDED. AND SHE TOOK HER MEDICATIONS OTHER THEN HER INSULIN SHE DID REFUSE TO HAVE BLOOD SUGARS AND VITALS TAKEN. DID NOTE THAT SHE HAS LARGE AMOUNT OF DISCHARGE WHITE FROM THE VAGINAL AREA. THIS WAS NOTED SHE HAS A BOWEL MOVEMENT WELL TONIGHT. THIS WAS PRIOR TO THE BED BATH AND LINEN CHANGE. SHE DID NOT YELL OR SCREAM AT ANY POINT THIS SHIFT EVEN WHILE THE CARE WAS PROVIDED, SHE WAS COOPERATIVE AND PLEASANT TO WORK WITH. WILL REPORT TO DAY SHIFT OF THE CHANGES THAT OCCURED THIS SHIFT.
--- NOTE | 2018-12-02 13:19 | NUR ---
PT REFUSING CARE. EXPLAINED TO PATIENT IMPORTANCE OF CHANGING POSITIONS FREQUENTLY TO IMPROVE CURRENT WOUND CONDITION. PT STATES "I DON'T NEED THAT, I'M AM PERFECTLY FINE SITTING RIGHT HERE". PT ALSO REFUSING BLOOD GLUCOSE CHECKS SINCE THIS A.M. SITTING UP IN BED WATCHING T.V.; EATING AND DRINKING WELL.
--- NOTE | 2018-12-02 13:47 | NUR ---
PATIENT REFUSED TO BE REPOSITIONED BY THE NURSE AND I, PATIENT HAS ALSO REFUSED MORNING VITALS.
--- NOTE | 2018-12-03 06:48 | NUR ---
SHIFT SUMMARY PATIENT REFUSED ADAMANTLY TO BE TURNED THE ENTIRE GEOSCIENCE PROFESSOR. PATIENT REFUSED TO ALLOW ME TO CHECK HER WOUNDS AND STATED THAT THEY HAD BEEN CHECKED THE PREVIOUS GEOSCIENCE PROFESSOR. HAIDERET TOOK MEDICATIONS AND LANTUS. WILL ONTINUE TO MONITOR AND REPORT TO ON COMING NURSE.
--- NOTE | 2018-12-03 17:01 | NUR ---
Spiritual Care routine visit. Liberty was tearful today and spoke to me at length about her concern for her sister in [place]. Liberty was repetative, telling the same story several times. I had to keep steering her away from complaints about dissapointing family back to her concern for her sister. She responded well to prayer and gentle counselor/art therapist. Liberty's wounds are quite oderous, and it is becoming difficult to stay at bedside for long while. Regardless, Liberty appears to enjoy companionship, and she allowed me to pray for her sister. [facility] [employer] will remain available.
--- NOTE | 2018-12-03 18:06 | NUR ---
NO ACUTE CHANGES THIS SHIFT. PATIENT CONTINUES TO REFUSE MOST CARE. TOOK MEDICATIONS TODAY. REFUSED CBG'S, LANTUS GIVEN THIS AM. PATIENT REPORTS GOOD PAIN CONTROL. D/C PLAN REMAINS UNCLEAR.
--- NOTE | 2018-12-04 04:25 | NUR ---
SHIFT SUMMARY NO ACUTE CHANGES NOTED THROUGH THE NIGHT. PT CONTINUES TO BE NON COMPLIANT WITH CARE. PT IS C/O PAIN IN HER HEELS AND BEHIND HER KNEES, WHEN PRESENTED WITH PAIN RELEIF OPTIONS SUCH REPOSITIONING, OR PAIN MEDICATIONS THE PT WOULD REFUSE, START TO YELL AND TELL STAFF TO GET OUT OF HER ROOM. SHE STATES "NOBODY KNOWS HOW TO HELP ME, THEY NEED SOMEBODY IN HERE THAT KNOWS WHAT THEY ARE DOING" POSITIVE ENC PROVIDED, PT CONT TO REFUSE, CALL LIGHT IN REACH.
--- NOTE | 2018-12-04 11:17 | NUR ---
PT DECLINES CATH CARE WHEN OFFERED, EDUCATED PT ABOUT THE IMPORTANCE
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
--- NOTE | 2018-12-04 17:17 | NUR ---
SUMMARY PT RESTING IN BED QUIETLY, PT HAS DECLINED MOST CARE TODAY WHEN ASKED, EDUCATED PT ABOUT THE IMPORTANCE OF SUCH THINGS TURNING, CATH CARE, AND WOUND CARE, PT VERBALIZED UNDERSTANDING BUT STILL DECLINED, PT HAS BEEN COOPERATIVE WITH THE CARE SHE ALLOWS, NO ACUTE CHANGES, WILL CONT TO MONITOR
--- NOTE | 2018-12-04 20:49 | NUR ---
PT HAS REFUSED ALL CARE AND MEDS FROM THIS RN. PT STATED SHE DID NOT WANT A MALE RN. PT WAS SPOKE TO BY BO, CLINICAL COORDINATOR, AND INFORMED SHE WAS GOING TO HAVE MALE RN. PT HAS REFUSED ASSESSMENT FROM THIS RN.
--- NOTE | 2018-12-05 02:40 | NUR ---
DR ORANTES WANTS PT BATHED EACH DAY. ISSUE IS PT REFUSES CARE MAJORITY OF THE TIME. WILL PASS ON TO ONCOMING RN OF NEED TO BATHE PT DAILY.
--- NOTE | 2018-12-05 04:42 | NUR ---
SHIFT SUMMARY PT HAS REFUSED ALL CARE AND MEDS FROM THIS RN. PT REFUSED ASSESSMENT WELL. PT CURRENTLY SLEEPING IN NO DISTRESS. CALL LIGHT IN REACH.
--- NOTE | 2018-12-05 07:29 | NUR ---
PT REFUSED ALL MORNING MEDS AND ASSESSMENT. PT STATES "LEAVE ME ALONE AND GO AWAY". THIS NURSE ASKED PT IF SHE WOULD LIKE ME TO RETURN AT A DIFFERENT TIME AND HER RESPONSE WAS "GET OUT". PT IS RESTING IN BED AND IS ABLE TO MAKE HER NEEDS KNOWN.
[2018-12-05 09:59] LABS: Hematocrit 39.5 % (33.0-51.0); Hemoglobin 12.9 g/dL (11.5-16.0)
[2018-12-05 10:20] LABS: Albumin, Blood 2.8 g/dL (3.4-5.0); Anion Gap 5 mmol/L (6-16); Blood Urea Nitrogen 16 mg/dL (8-24); Bun/Creatinine Ratio 22.8 (12.0-20.0); CO2, Blood 30 mmol/L (21-32); Calcium, Blood 10.3 mg/dL (8.5-10.1); Chloride, Blood 103 mmol/L (98-108); Glomerular Filtration Rate >60 (60-); Glucose, Blood 134 mg/dL (70-99); Magnesium, Blood 1.2 mg/dL (1.6-2.4); Potassium, Blood 4.1 mmol/L (3.5-5.5); Sodium, Blood 138 mmol/L (136-145)
--- NOTE | 2018-12-05 18:09 | NUR ---
SHIFT SUMMARY: PT IS A/O X 4 THIS SHIFT AND DENIES ANY PAIN. SHE HAS REFUSED ALL MEDICATIONS AND HER SHIFT ASSESSMENT. PT REQUESTED LABS FROM DR ORANTES TODAY AND HE WAS NOTIFIED AND GAVE ORDERS WHICH WERE COMPLETED. PT STATED MULTIPLE TIMES THAT SHE HAD A PACKAGE MAILED TO HER HERE AND IS AWAITING ITS ARRIVAL. PT HAS ALL OF HER PERSONAL BELONGSINGS AND CALL LIGHT WITHIN REACH AND CALLS FOR HELP APPROPRIATELY WHEN NEEDED. RO IS PATENT AND DRAINING CLEAR YELLOW URINE.
--- NOTE | 2018-12-06 03:45 | NUR ---
SHIFT SUMMARY PT ACCEPTED TO TAKE MEDS ORDERED BY DR ORANTES. PT REFUSED ALL OTHER MEDS. PT ALSO REFUSED EVENING VS. PT REFUSED TO BE ASSESSED AND ALL OTHER CARE. PT CURRENTLY SLEEPING IN NO DISTRESS. CALL LIGHT IN REACH.
--- NOTE | 2018-12-06 17:40 | NUR ---
SHIFT SUMMARY: PT IS A/O X 4 AT BASELINE WITH NO C/O PAIN OR DISCOMFORT. PT ALLOWED HER MORNING MEDS TO BE GIVEN AND A PARTIAL ASSESSMENT TO BE COMPLETED BY THIS NURSE AND EVEN SAID THANK YOU. PT WAS QUITE PLEASANT TODAY. RO IS PATENT WITH CLEAR YELLOW URINE OUTPUT. CAM BOOTS ARE IN PLACE TO BLE. PT DID DECLINE HER LAB DRAW X 3 TODAY WELL DRESSING CHANGES. PT IS RESTING IN BED WATCHING TV AND IS ABLE TO MAKE HER NEEDS KNOWN.
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
--- NOTE | 2018-12-07 05:50 | NUR ---
PT CALLED STAFF TO PLACE PILLOWS UNDER HIPS WHEN STAFF ARIVED AT ROOM PT YELLED AT STAFF SAYING TO "GET OUT AND LEAVE HER ALONE"
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
--- NOTE | 2018-12-07 09:31 | NUR ---
PT APPEARS IRRITATED THIS MONRING AND REFUSED SHIFT ASSESSMENT STATING "GO AWAY, I DIDNT ASK FOR THAT" SHE DID HOWEVER ASK FOR HER MORNING MEDS. PT HAS NO ACUTE SIGNS OF DISTRESS. RO IS PATENT WITH CLEAR YELLOW URINE OUTPUT. CAM BOOTS ARE IN PLACE TO BLE. PT REFUSED ALL DRESSING CHANGES. PT DOES HAVE AN ODOR TO HER AND HER ROOM BUT IS REFUSING PRACHI CARE AND A BED BATH. SHE IS ABLE TO MAKE HER NEEDS KNOWN AND VOICES HER OPINIONS FREELY.
--- NOTE | 2018-12-07 17:15 | NUR ---
SHIFT SUMMARY: PT CONTINUED TO REFUSE CARE THROUGHOUT SHIFT INCLUDING AFTERNOON MEDS. SHE IS RESTING IN BED WATCHING TV WITH CALL LIGHT IN REACH AND CALLS FOR HELP WHEN NEEDED.
--- NOTE | 2018-12-08 04:23 | NUR ---
SHIFT SUMMARY PT ISSUES NOTED. PT REFUSED CARE AND MEDS. PT CURRENTLY SLEEPING IN NO DISTRESS.
--- NOTE | 2018-12-08 09:36 | NUR ---
PT REFUSAL THIS AM UPON AWAKING THE THE PT SHE YELLED OUT "WHAT DO YOU WANT NOW" I ASKED THE PT IF ANY ONE HAD BROUGHT HER BREAKFAST YET, AND SHE STATED THAT SHE DIDNT ORDER ANY BREAKFAST, I ASKED IF SHE WOULD TAKE HER ORAL MEDICATIONS AND SHE STATED TO JUST LEAVE THEM AND SHE WOULD GET TO THEM WHEN SHE WANTED TO, I ASKED IF WE COULD CHECK HER BLOOD SUGAR AND MEDICATE HER FOR THAT, SHE REPLIED NO THAT SHE DIDNT EAT ANYTHING SWEET AND DIDNT NEED IT, I OFFERED TO CHACK HER BLOOD SUGAR SO THAT SHE WOULD KNOW WERE IT IS AND SHE STATED THAT SHE DIDNT CARE TO KNOW
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
--- NOTE | 2018-12-08 10:29 | NUR ---
ASSESSMENT THE PT ALLOWED ONLY A LIMITED ASSESSMENT, WOULD NOT TURN ON EITHER SIDE
--- NOTE | 2018-12-08 13:15 | NUR ---
WOUND CARE OFFERED TO CHANGE THE PTS WOUND DRESSINGS, THE PT REFUSED AT THIS TIME STATING THAT THEY GET CHANGED WHEN SHE HAS A BM, OFFERED TO CHANGE THE FOOT DRESSINGS SHE REPLIED "NOT NOW" MAYBE LATER, WILL CHECK BACK WITH THE PT AND ADDRESS WOUND CARE AGAIN BEFORE THE END OF THE SHIFT
--- NOTE | 2018-12-08 15:45 | NUR ---
castillo cath ORDER WAS PLACED TO REMOVE THE PTS CASTILLO CATHETER, HOWEVER, WHEN ATTEMPTING TO REMOVE THE CATHETER THE PT BECAME VERY ANGRY AND TOLD ME THAT I WAS NOT TO EVEN TOUCH THE CATHETER EXCEPT TO DRAIN IT AND SHE, THE PT, HAD CALLED ADULT PROTECTIVE SERVICES AND BECAUSE OF THAT DR. MAURER WAS NOT ALLOWED TO MAKE ANYMORE DECESIONS IN HER CARE, THE ORDER WAS DISCUSED WITH THE CHARGE NURSE AND AT THIS TIME UNTIL FURTHER REVIEW IT WAS DECIDED TO LEAVE THE CATHETER IN DUE TO THE PTS REFUSAL TO HAVE IT REMOVED
--- NOTE | 2018-12-08 16:41 | NUR ---
PT IS A/OX3, PT IS IRRITABLE, THE PT APPEARS TO BE BREATHING EASILY ON RA, THE PT IS REFUSING TO HAVE HER VS, BLOOD SUGAR, AND WOUND CARE COMPLETED SO FAR THIS SHIFT, THE PT WILL ACCECPT TAKING SOME OF HER MEDICATIONS ONLY WHEN SHE FEELS LIKE SHE IS READY, AND REFUSES SOME MEDICATIONS, THE PT REFUSED TO HAVE HER RO CATHETER REMOVED THIS EVENING, THE PT REPORTS THAT HER COCCYX DRESSING GETS CHANGED ONLY AFTER SHE HAS A BM, SO FAR THIS SHIFT THAT HAS NOT HAPPENED, THE PT WAS TO BE DISCHARGED TODAY, HOWEVER THAT HAS BEEN PUT ON HOLD DUE TO FURTHER REVIEW, CALL LIGHT IN REACH, WILL CONTINUE TO MONITOR
--- NOTE | 2018-12-08 18:21 | NUR ---
Spiritual Care routine visit: Interesting conversation with Lni melvin. She is angry with her sister in [place], her son, the hospital, and physicians. She told me "They are trying to send me home today, but I know who to call about this. All I have to do is make one phone call and then I have three days. I will keep doing this every time they try to send me home. It seems Liberty is mistrustful of nearly everyone and feels mistreated and betrayed. She is clearly fearful and this is masked in anger. I attempted to steer the conversation towards something other than her resentments and failed. Liberty denied pain or concerns. She thanked me for visiting her. Mostly, I just listen. I don't beleive she notices that I neither support nor confirm her statements. She simply seems to enjoy companionship. I will continue to see Liberty as case-load permits.
--- NOTE | 2018-12-09 00:50 | NUR ---
pt refuses all cares and medications.
--- NOTE | 2018-12-09 03:37 | NUR ---
Shift summary. No change in condition noted. Pt refusing all cares and medications. Pt will not let us dc her castillo.
--- NOTE | 2018-12-09 09:35 | NUR ---
PT REFUSED BREAKFAST. PT REFUSED SHIFT ASSESSMENT AND REQUESTED THAT WE "LEAVE HER ALONE" AND THAT SHE WOULD LET US KNOW IF SHE NEEDED ANYTHING. PT COMPLAINED OF CONSTIPATION AND MEDICATION WAS PROVIDED PER ORDERS.
--- NOTE | 2018-12-09 16:45 | NUR ---
COORIDINATED WITH CARE MANGEMENT TO COORIDINATE DISCHARGE FOR TOMORROW TO [facility]. PT INITALLY RESISTED DISCHARGE, BUT EVENTUALLY WAS AGREEABLE WITH DISCHARGE PLAN. JIA REMOVED BY THIS AFTERNOON. PT REFUSED BREAKFAST AND LUNCH. PT REFUSED WOUND CARE AND REFUSED PERICARE. PT DECLINED TO HAVE SHIFT ASSESSMENT PREFORMED. PT DID ALLOW LIMITED MEDICATION ADMINISTRATION. PT REQUESTED ASSISTANCE PLUGGING IN HER PHONE BUT DENIED ANY OTHER NEEDS THIS SHIFT. OFFERED REPOSITIONING, DRINKS, AND SNACKS DURING THIS SHIFT WHICH WERE DECLINED.
--- NOTE | 2018-12-10 04:21 | NUR ---
SHIFT SUMMARY PATIENT HAD NO ACUTE CHANGES OBSERVED THIS SHIFT. PATIENT OFFERED ASSESSMENT, VITALS, AND WOUND ASSESSMENT AND DECLINED. WOUND DRESSING CHANGED PREVIOUS SHIFT. PATIENT TURNED Q2 AND ATTEND CHANGES NEEDED. PATIENT VERBALLY AGITATED WITH BOTH. MEDICATION ADMINISTRATION DECLINED AFTER BEING OFFERED. PATIENT OFFERED FLUIDS AND SNACKS AND DECLINED. CALL LIGHT IN REACH. BED IN LOWEST POSITION. WILL CONTINUE TO MONITOR UNTIL DAY SHIFT NURSE ASSUMES CARE.
--- NOTE | 2018-12-10 14:03 | NUR ---
PT REFUSING ALL CARE, REFUSING DRESSING CHANGES, REFUSING TO BE TURNED OR CHANGED OR CLEANED UP. SCREAMING AT STAFF, CURSING.
--- NOTE | 2018-12-10 19:18 | NUR ---
SHIFT SUMMARY WE WERE ABLE TO TURN AND CHANGE DALY ONCE THIS SHIFT AROUND 1030. SHE WAS OFFERED FREQUENT TURNS AND CHANGES AND WE EXPLAINED THE IMPORTANCE OF THEM, BUT SHE VERY STRONGLY REFUSED TO BE TURNED/CHANGED AND JUST YELLED AND SCREAMED TO BE LEFT ALONE. OFFERED TO CHANGE DRESSINGS ON LEGS SEVERAL TIMES AND UNABLE TO GET HER TO CONSENT. SHE COMPLAINS THAT SHE WANTS IT BUT NO ONE WILL EVER DO IT. FREQUENT REFUSALS THIS SHIFT. ELIZABETH FROM [facility] CAME AND ASSESSED PT, BUT PT TOLD HER TO LEAVE. REFUSED FOOD THIS SHIFT. SMALL BM THIS SHIFT, REQUESTED AND RECEIVED LAXATIVE. REFUSED ALL OTHER MEDS AND CBGS AND VS. VERY PAINFUL DURING THE ONE TURN WE WERE ALLOWED TO DO, BUT REFUSES PAIN MEDICATION. STATES PAIN IS IN HER BOTTOM AND HER KNEES BUT IS MOSTLY GONE IF SHE IS LEFT ALONE. INCONTINENT URINE IN BRIEF. UNABLE TO CHECK BRIEF AFTER 1030AM. CALL LIGHT IN REACH
--- NOTE | 2018-12-11 04:11 | NUR ---
SHIFT SUMMARY PT REFUSES MEDS AND REPOSITIONING. OFFERED TO CHANGE SOILED ATTENDS AND REFUSED. PT AGREED TO BE CHANGED THIS AM. PT STATED SHE WANTS TO BE LEFT ALONE. PT SLEEPING CURRENTLY IN NO DISTRESS.
--- NOTE | 2018-12-11 06:30 | NUR ---
PT CHANGED AND DRESSINGS CHANGED.
--- NOTE | 2018-12-11 13:07 | NUR ---
SHIFT SUMMARY WE HAVE OFFERED Q2 TURNS AND CHANGES TO DALY, SHE REFUSES DESPITE KNOWING THE RATIONALE AND THAT HER SKIN HAS HUGE WOUNDS. SHE REFUSED ALL MEDS, ALL CBGS, ALL VS, ALL TURNS. REFUSES TO LET US CLEAN UP HER URINE AND STOOL. SCREAMS IF WE ATTEMPT CARE. SOON WE WALK IN, SHE DEMANDED THAT I LEAVE. PT IS VERY UPSET ABOUT THE THOUGHT OF LEAVIGN THE HOSPITAL TO GO HOME. REFUSING ALL MEALS. CALL ADALBERTO IN REACH, CARMEN
--- NOTE | 2018-12-11 13:12 | NUR ---
SPOKE TO DR MENENDEZ, PT OK TO DISCHARGE FROM HER POINT OF VIEW, IF CASE MANAGMENT HAS ALL THE PAPERWORK SIGNED
--- NOTE | 2018-12-11 14:57 | NUR ---
DISCHARGE SUMMARY NADIYA LEFT VIA MEDICAL TRANSPORTATION BY STRETCHER WITH ALL HER BELONGINGS. ATTMPTED TO REVIEW PAPERWORK, SHE DECLINED. I TOLD HER THAT THE DOC HERE WAS RECOMMENDING THAT SHE ONLY TAKE LANTUS, ADVAIR, AND LEVOTHYROXINE, SHE STATES SHE ALREADY HAS THESE, AND SHE DOSEN'T NEED THEM FAXED ANYWHERE. SHE ALSO STATES SHE WILL TAKE WHATEVER MEDS SHE WANTS. AT 1400 SHE ALLOWED US TO TURN AND CHANGE HER. CLEANED AND REPACKED THE DRESSING ON HER L BUTTOCK. PAPERWORK SENT WITH PT HOME. ALL CARER AND F/U INFORMATION GIVEN. SHE DECLINED ME TO MAKE A F/U PCP APPOINTMENT FOR HER.
== END 2018-12-11 14:50 | disposition home or self-care (01) | DRG 622 ==
LOC: ER 12:17 → MEDS 12:18 → ENPENDDIS 12-11 11:06 → MEDS 12-11 14:50
PROVIDERS: Emergency Medicine; Internal Medicine; Internal Medicine Nephrology; Surgery; ADMIT Family Medicine
PROC: 0JB70ZZ Excision of Back Subcutaneous Tissue and Fascia, Open Approach (ICD-10-PCS; principal; 2018-10-24 13:30)
DX: E11.622 Type 2 diabetes mellitus with other skin ulcer (principal); L89.154 Pressure ulcer of sacral region, stage 4; I96 Gangrene, not elsewhere classified; I13.0 Hypertensive heart and chronic kidney disease with heart failure and stage 1 through stage 4 chronic kidney disease, or unspecified chronic kidney disease; L03.317 Cellulitis of buttock; E66.2 Morbid (severe) obesity with alveolar hypoventilation; J44.9 Chronic obstructive pulmonary disease, unspecified; E66.01 Morbid (severe) obesity due to excess calories; E03.9 Hypothyroidism, unspecified; E11.65 Type 2 diabetes mellitus with hyperglycemia; E11.621 Type 2 diabetes mellitus with foot ulcer; Z79.4 Long term (current) use of insulin; Z91.19 Patient's noncompliance with other medical treatment and regimen; Z99.3 Dependence on wheelchair; G47.33 Obstructive sleep apnea (adult) (pediatric); E83.42 Hypomagnesemia; K21.9 Gastro-esophageal reflux disease without esophagitis; E78.5 Hyperlipidemia, unspecified; G89.4 Chronic pain syndrome; E11.22 Type 2 diabetes mellitus with diabetic chronic kidney disease; N18.3 Chronic kidney disease, stage 3 (moderate); I50.9 Heart failure, unspecified; N17.9 Acute kidney failure, unspecified; B96.5 Pseudomonas (aeruginosa) (mallei) (pseudomallei) as the cause of diseases classified elsewhere; Z86.73 Personal history of transient ischemic attack (TIA), and cerebral infarction without residual deficits; N25.81 Secondary hyperparathyroidism of renal origin; D63.1 Anemia in chronic kidney disease
CPT/HCPCS: 36415; 36416; 51702; 72193; 76770; 80048; 80053; 80069; 81001; 81003; 82306; 82565; 82947; 83605; 83735; 83970; 85014; 85018; 85025; 86140; 87070; 87075; 87077; 87081; 87086; 87186; 87205; 94640; 94760; 94762; 96365; 97110; 97166; 97535; 99283; 99285-25; J0692; J1650; J2185; J2250; J2543; J2704; J3010; J3475; J7030; J7042; J7050; J7120; Q9967

== ENCOUNTER 2018-12-22 13:16 | Emergency (ER) | payer MEDICARE, OTHER ==
[~2018-12-22] VITALS: Ht 160 cm; Wt 136.1 kg
== END 2018-12-22 18:45 | disposition home or self-care (01) ==
LOC: ER 13:16
DX: L98.499 Non-pressure chronic ulcer of skin of other sites with unspecified severity (principal); E11.622 Type 2 diabetes mellitus with other skin ulcer; L89.899 Pressure ulcer of other site, unspecified stage; J44.9 Chronic obstructive pulmonary disease, unspecified; I11.0 Hypertensive heart disease with heart failure; I50.9 Heart failure, unspecified; I27.20 Pulmonary hypertension, unspecified; Z86.718 Personal history of other venous thrombosis and embolism; Z88.1 Allergy status to other antibiotic agents; Z91.048 Other nonmedicinal substance allergy status; Z79.899 Other long term (current) drug therapy; Z79.4 Long term (current) use of insulin
CPT/HCPCS: 96372; 99284-25; J1170

== ENCOUNTER 2018-12-26 17:21 | Observation (INO) | payer MEDICARE, OTHER ==
[~2018-12-26] VITALS: Ht 147.3 cm; Wt 113.4 kg
[2018-12-26 19:11] LABS: BASOPHILS ABSOLUTE AUTO 0.02 K/mm3 (0.00-0.23); BASOPHILS PERCENT AUTO 0 % (0-2); EOSINOPHILS ABSOLUTE AUTO 0.36 K/mm3 (0.00-0.68); EOSINOPHILS PERCENT AUTO 3 % (0-6); Hematocrit 42.3 % (33.0-51.0); Hemoglobin 13.1 g/dL (11.5-16.0); IMMATURE GRAN ABSOLUTE AUTO 0.15 K/mm3 (0.00-0.10); IMMATURE GRAN PERCENT AUTO 1 % (0-1); LYMPHOCYTES ABSOLUTE AUTO 1.28 K/mm3 (0.84-5.20); LYMPHOCYTES PERCENT AUTO 9 % (21-46); MONOCYTES ABSOLUTE AUTO 1.03 K/mm3 (0.16-1.47); MONOCYTES PERCENT AUTO 7 % (4-13); Mean Corpuscular HGB 28.3 pg (26.0-34.0); Mean Corpuscular Volume 91 fL (80-100); NEUTROPHILS ABSOLUTE AUTO 11.25 K/mm3 (1.96-9.15); NEUTROPHILS PERCENT AUTO 80 % (41-73); Platelet Count 352 K/mm3 (150-400); RDW Coefficient Variation 13.7 % (11.7-14.2); RDW Standard Deviation 46.5 fL (35.1-46.3); Red Blood Cell Count 4.63 M/mm3 (3.80-5.20); White Blood Cell Count 14.09 K/mm3 (4.00-11.30)
[2018-12-26 19:26] LABS: Alanine Aminotransfer (ALT/SGP 17 U/L (12-78); Albumin, Blood 2.5 g/dL (3.4-5.0); Albumin/Globulin Ratio 0.5 (0.8-1.8); Alk Phos 116 U/L (50-136); Anion Gap 5 mmol/L (6-16); Aspartate Aminotrans (AST/SGOT 20 U/L (12-37); Bilirubin, Total 0.4 mg/dL (0.1-1.0); Blood Urea Nitrogen 14 mg/dL (8-24); Bun/Creatinine Ratio 28.1 (12.0-20.0); CO2, Blood 29 mmol/L (21-32); Calcium, Blood 10.7 mg/dL (8.5-10.1); Chloride, Blood 103 mmol/L (98-108); Globulin, Blood 4.7 g/dL (2.2-4.0); Glomerular Filtration Rate >60 (60-); Glucose, Blood 149 mg/dL (70-99); Potassium, Blood 3.9 mmol/L (3.5-5.5); Sodium, Blood 137 mmol/L (136-145); Total Protein, Blood 7.2 g/dL (6.4-8.2)
[2018-12-26] MEDS ORDERED: LEVSOD75 PO (19:54)
[2018-12-26] MEDS ORDERED: FLUT1DIS8 INH (19:54)
[2018-12-26] MEDS ORDERED: BASAGLAR K100 UNIT/1 SC (19:54)
[2018-12-26] MEDS ORDERED: Aspirin EC81 MG PO (19:55)
--- NOTE | 2018-12-27 04:27 | NUR ---
PATIENT ADMITTED FROM ER. STRONG SMELL OF AMMONIA AND FECAL MATTER. VISUALIZED PATIENT LEG WOUNDS WRAPPED WITH GAUZE THAT IS BROWN IN COLOR AND SMELL OF URINE ON BLE. PATIENT ATTEMPTING TO REFUSE WOUND CARE/DRESSING CHANGE. REMOVED BLE BOOTS AND UNWRAPPED LOWER LEG BANDAGES. PICTURES TAKEN AND WOUNDS DRESSED USING PETROLEUM DRESSING, NON-ADHER, GAUZE WRAP. PATIENT GIVEN A BAD BATH AND COCCYX DECUB DRESSING CHANGED, PICTURES TAKEN OF WOUND AND PLACED IN CHART. PATIENT UNCOOPERATIVE WITH STAFF WHILE BATHED AND WOUND DRESSINGS CHANGED. PATIENTS BLE BOOTS LEFT OFF AND PADDING SENT TO BE WASHED. SHOWED PATIENT PICTURES TAKEN OF WOUNDS AND EXPLAINED THE IMPORTANCE OF WOUND CARE AND ENSURING THAT DRESSING REMAIN CLEAN AND DRY. PATIENT STATES SHE NEEDS THE BOOTS BACK ON FOR HER FEET. ASKED PATIENT WHY SHE REQUIRED THE BOOTS TO WHICH SHE REPLIED "THATS MY BUSINESS". PATIENT ALLOWED STAFF TO CHECK FSBS BUT REFUSED LANTUS. EXPLAINED TO PATIENT THAT IT IS A LONG ACTING INSULIN TO PREVENT HER FSBS FROM SPIKING AND PATIENT STATED SHE KNEW WHAT IT WAS FOR AND SHE WASNT GOING TO TAKE IT. PATIENT ALSO STATED SHE WOULD NOT BE TAKING HER THYROID MEDICATION IN AM. PATIENT ALLOWED THIS NURSE TO GIVE IV ANTIBIOTIC BUT REFUSED TO BE TURNED. PATIENT STATES SHE IS FINE AND REFUSES TO MOVE AT THIS TIME. EXPLAINED TO PATIENT THAT WOUNDS WILL NOT HEAL IF SHE CONTINUES TO SIT IN URINE AND REFUSES TO BE MOVED. PATIENT STATES SHE IS FINE AND AGAIN REFUSES TO BE REPOSITIONED. WILL CONTINUE TO MONITOR AND ATTEMPT TO TURN PATIENT Q2H.
--- NOTE | 2018-12-27 06:04 | NUR ---
SHIFT SUMMARY PATIENT REFUSING CARE. ALONG WITH 3 OTHER STAFF MEMBERS PRESENT, WE GAVE THE PATIENT A BED BATH AND CHANGED ALL OF HER WOUND DRESSINGS. PATIENT THEN HAS REFUSED ALL CARE FROM THIS NURSE. OFFERED PATIENT SCHEDULED SYNTHROID, PATIENT REFUSED. REQUESTED THAT WE CHANGE PATIENT AND CLEAN HER OF URINE TO WHICH PATIENT STATED "IM FINE", I EXPLAINED TO PATIENT THE IMPORTANCE OF KEEPING HER COCCYX WOUND DRY AND PATIENT STATED AGAIN THAT SHE WAS FINE AND REFUSED TO BE CHANGED. TOLD PATIENT THAT WE NEEDED TO GET HER MORNING VITAL SIGNS TO WHICH PATIENT ALSO REFUSED AND SAID THAT SHE WANTED TO BE LEFT ALONE. PATIENT THEN TOLD ME TO LEAVE HER ROOM. I EXPLAINED TO THE PATIENT THE IMPORTANCE OF HER ALLOWING US TO PROVIDE CARE AND PATIENT IGNORED ME AND AGAIN STATED FOR ME TO LEAVE HER ROOM. WILL CONTINUE TO MONITOR AND REPORT TO ON COMING RN.
--- NOTE | 2018-12-27 12:47 | NUR ---
PT DC'D HOME [facility]150- SENT WITH ALL BELONGINGS EXCEPT HARD SHELL OF BOOTS MISSING- INSERTS SENT HOME WITH PT. PERFUME AND PURSE WITH PT AND ALL WOUND SUPPLIES. PT TURNED AND CHANGED INCONT, APPLIED CALAZYME, ALL WITH PT YELLING LEAVE ME ALONE. COCCYX DRESSING INTACT, LE DRESSINGS INTACT. PT REFUSED BREAKFAST. PT SLID OVER TO STRETCHER 4 PERSON LIFT. CALLED CAREGIVER ALEXANDRIA TO MEET HER AT THE APARTMENT, HOME HEALTH FOLLOWING.
== END 2018-12-27 11:53 | disposition home or self-care (01) ==
LOC: ER 17:21 → MEDS 17:22 → ER 20:30 → MEDS 20:30 → ER 12-27 07:16 → MEDS 12-27 07:24 → ENPENDDIS 12-27 09:01 → MEDS 12-27 11:53
PROVIDERS: Emergency Medicine; ADMIT Internal Medicine
DX: L89.154 Pressure ulcer of sacral region, stage 4 (principal); E11.621 Type 2 diabetes mellitus with foot ulcer; L97.519 Non-pressure chronic ulcer of other part of right foot with unspecified severity; L97.529 Non-pressure chronic ulcer of other part of left foot with unspecified severity; D72.829 Elevated white blood cell count, unspecified; I11.0 Hypertensive heart disease with heart failure; I50.9 Heart failure, unspecified; J44.9 Chronic obstructive pulmonary disease, unspecified; K21.9 Gastro-esophageal reflux disease without esophagitis; Z86.73 Personal history of transient ischemic attack (TIA), and cerebral infarction without residual deficits; G43.909 Migraine, unspecified, not intractable, without status migrainosus; E03.9 Hypothyroidism, unspecified; E78.5 Hyperlipidemia, unspecified; E66.2 Morbid (severe) obesity with alveolar hypoventilation; Z99.89 Dependence on other enabling machines and devices; Z91.048 Other nonmedicinal substance allergy status; Z88.1 Allergy status to other antibiotic agents; Z79.82 Long term (current) use of aspirin; Z79.899 Other long term (current) drug therapy; Z79.4 Long term (current) use of insulin
CPT/HCPCS: 36415; 80053; 82947; 83036; 83605; 84443; 85025; 87040; 96365; 96366; 96367; 96376; 99285-25; G0378; J0744; J2185; J3010

== ENCOUNTER 2019-01-17 14:18 | Inpatient (IN) | payer MEDICARE, OTHER ==
[~2019-01-17] VITALS: Ht 162.6 cm; Wt 89.0 kg
[~2019-01-17 14:18] MED LIST changes: +Aspirin EC81 MG PO; +BASAGLAR K100 UNIT/1 SC
[2019-01-17 15:31] LABS: Source, Urine Catheter
[2019-01-17 15:45] LABS: BASOPHILS ABSOLUTE AUTO 0.05 K/mm3 (0.00-0.23); BASOPHILS PERCENT AUTO 0 % (0-2); EOSINOPHILS ABSOLUTE AUTO 0.06 K/mm3 (0.00-0.68); EOSINOPHILS PERCENT AUTO 0 % (0-6); Hematocrit 40.4 % (33.0-51.0); Hemoglobin 12.8 g/dL (11.5-16.0); IMMATURE GRAN ABSOLUTE AUTO 0.36 K/mm3 (0.00-0.10); IMMATURE GRAN PERCENT AUTO 1 % (0-1); LYMPHOCYTES ABSOLUTE AUTO 3.66 K/mm3 (0.84-5.20); LYMPHOCYTES PERCENT AUTO 14 % (21-46); MONOCYTES PERCENT AUTO 10 % (4-13); Mean Corpuscular HGB 28.4 pg (26.0-34.0); Mean Corpuscular HGB Conc 31.7 g/dL (31.5-36.5); Mean Corpuscular Volume 90 fL (80-100); Mean Platelet Volume 9.6 fL (9.1-12.4); NEUTROPHILS ABSOLUTE AUTO 19.06 K/mm3 (1.96-9.15); NEUTROPHILS PERCENT AUTO 74 % (41-73); Platelet Count 383 K/mm3 (150-400); RDW Coefficient Variation 14.2 % (11.7-14.2); RDW Standard Deviation 46.7 fL (35.1-46.3); White Blood Cell Count 25.69 K/mm3 (4.00-11.30)
[2019-01-17 16:02] LABS: Alanine Aminotransfer (ALT/SGP 10 U/L (12-78); Albumin, Blood 1.8 g/dL (3.4-5.0); Albumin/Globulin Ratio 0.4 (0.8-1.8); Alk Phos 135 U/L (50-136); Anion Gap 10 mmol/L (6-16); Aspartate Aminotrans (AST/SGOT 14 U/L (12-37); Bilirubin, Total 0.6 mg/dL (0.1-1.0); Blood Urea Nitrogen 22 mg/dL (8-24); Bun/Creatinine Ratio 30.7 (12.0-20.0); CO2, Blood 19 mmol/L (21-32); Calcium, Blood 10.1 mg/dL (8.5-10.1); Chloride, Blood 102 mmol/L (98-108); Creatinine, Blood 0.72 mg/dL (0.40-1.00); Globulin, Blood 4.9 g/dL (2.2-4.0); Glomerular Filtration Rate >60 (60-); Glucose, Blood 195 mg/dL (70-99); Potassium, Blood 5.1 mmol/L (3.5-5.5); Sodium, Blood 131 mmol/L (136-145); Total Protein, Blood 6.7 g/dL (6.4-8.2)
[2019-01-17 16:05] LABS: Blood, Urine Neg (Neg); Glucose Qualitative, Urine Neg (Neg); Ketones, Urine Neg (Neg); Leukocyte Esterase, Urine 1+ (Neg); Nitrite, Urine Neg (Neg); Protein, Urine 1+ (Neg); Specific Gravity, Urine 1.015 (1.003-1.022); Urobilinogen, Urine 1+ (Normal)
[2019-01-17] MEDS ORDERED: GABA300 PO (16:19)
[2019-01-17 16:20] LABS: Bilirubin, Urine 1+ (Neg)
[2019-01-17 16:21] LABS: Appearance, Urine Hazy (Clear); Bacteria Mod /hpf; Color, Urine Yellow (P-Yellow); Red Blood Cells, Urine Rare /hpf (0-2); Squamous Epithelial Cells Many /hpf (Few); White Blood Cells, Urine 0-2 /hpf (0-5)
[2019-01-17 18:05] LABS: International Normalized Ratio 1.08; Prothrombin Time Results 11.4 Sec (9.7-11.5)
[2019-01-17 19:50] LABS: BASOPHILS ABSOLUTE AUTO 0.04 K/mm3 (0.00-0.23); BASOPHILS PERCENT AUTO 0 % (0-2); EOSINOPHILS ABSOLUTE AUTO 0.01 K/mm3 (0.00-0.68); EOSINOPHILS PERCENT AUTO 0 % (0-6); Hematocrit 34.3 % (33.0-51.0); IMMATURE GRAN ABSOLUTE AUTO 0.32 K/mm3 (0.00-0.10); IMMATURE GRAN PERCENT AUTO 2 % (0-1); LYMPHOCYTES ABSOLUTE AUTO 1.31 K/mm3 (0.84-5.20); LYMPHOCYTES PERCENT AUTO 6 % (21-46); MONOCYTES ABSOLUTE AUTO 1.91 K/mm3 (0.16-1.47); MONOCYTES PERCENT AUTO 9 % (4-13); Mean Corpuscular HGB 28.8 pg (26.0-34.0); Mean Corpuscular HGB Conc 32.1 g/dL (31.5-36.5); Mean Corpuscular Volume 90 fL (80-100); Mean Platelet Volume 9.2 fL (9.1-12.4); NEUTROPHILS ABSOLUTE AUTO 17.59 K/mm3 (1.96-9.15); NEUTROPHILS PERCENT AUTO 83 % (41-73); Platelet Count 249 K/mm3 (150-400); RDW Standard Deviation 45.2 fL (35.1-46.3); Red Blood Cell Count 3.82 M/mm3 (3.80-5.20); White Blood Cell Count 21.18 K/mm3 (4.00-11.30)
--- NOTE | 2019-01-17 21:30 | NUR ---
BLOOD SUGAR OF : BLOOD SUGAR TAKEN AT APPROX 2054 WITH THE RESULTS OF . HAS NOT CROSSED OVER FROM THE BLOOD SUGAR MACHINE BUT APPEARS IN IT'S HISTORY.
--- NOTE | 2019-01-18 00:13 | NUR ---
ASSUMED CARE APPROXIMATELY 1999; SLIDER SHEET USED TO TRANSFER PT TO BED; PT DEMANDING ON INSTRUCTION; YELLS OUT AT STAFF; CALLS OUT IN PAIN; LARGE OPEN WOUNDS THROUGHOUT BODY; LARGE DECUBITUS ULCER ON COCCYX; PT REFUSES TO LET STAFF ASSESS WOUNDS OR DRESS WOUNDS; PT REFUSES Q2 TURNS; REFUSES REPOSITIONING; PILLOWS PLACED UNDER HIPS AFTER EXTENSIVE EDUCATION BY 2 NURSES; HEEL BOOTS PLACED BILATERALLY; PT IS RUDE TO STAFF AND DEMANDING; PT EDUCATED CONTINUOUSLY ON NEED TO TURN TO IMPROVE CONDITION; PT STATES SHE "KNOWS IT WILL NOT GET BETTER. I AM CONTENT THE WAY I AM" UPON FURTHER DISCUSSION AND PT REASSURED STAFF WANTS TO HELP HER IMPROVE SHE AGREED TO ONE PILLOW MOVED UNDER HIP ONE TIME ONLY; PT C/O SEVERE PAIN; REFUSES TO TAKE TYLENOL THAT IS ORDERED; SUPERVISOR DOCK PROVIDER NOTIFIED AT 224 AND NEW ORDER WAS GIVEN FOR TRAMADOL; RO CATHETER DRAINING KAYLAH URINE; CALL LIGHT IN REACH; BED IN LOWEST POSITION; WILL CONTINUE TO MONITOR AND ASSESS.
--- NOTE | 2019-01-18 00:48 | NUR ---
UPDATE PATIENT VERY UNCOOPERATIVE WITH ALL CARE. VERY DEMANDING AND RUDE TO STAFF. PATIENT REFUSING TO ALLOW TURNS, EVEN AFTER PATIENT EDUCATED THAT HER SORES WILL NOT GET BETTER IF STAFF IS NOT ALLOWED TO ASSESS, PROVIDE WOUND CARE, AND TURN PATIENT. TO THIS PATIENT STATED, "I KNOW, BUT I AM COMFORTABLE WHERE I AM AT RIGHT NOW." PREVIOUSLY DURING THE NIGHT PATIENT HAD STATED, "JUST LEAVE ME ALONE AND GIVE ME A PAIN PILL." PATIENT REFUSING TO ALLOW STAFF TO ASSESS WOUNDS LEGS AND COCCYX. PATIENT REFUSING TO TURN SO WOUND SWAB UNABLE TO BE COLLECTED AT THIS TIME DUE TO PATIENT NONCOMPLIANCE. PATIENT VERY UNCOOPERATIVE WITH ALL CARE AT THIS TIME. WILL CONTINUE TO ENCOURAGE TURNING AND WOUND CARE. WILL CONTINUE TO MONITOR.
[2019-01-18 03:49] LABS: BASOPHILS ABSOLUTE AUTO 0.03 K/mm3 (0.00-0.23); BASOPHILS PERCENT AUTO 0 % (0-2); EOSINOPHILS ABSOLUTE AUTO 0.08 K/mm3 (0.00-0.68); EOSINOPHILS PERCENT AUTO 0 % (0-6); Hematocrit 34.7 % (33.0-51.0); IMMATURE GRAN ABSOLUTE AUTO 0.23 K/mm3 (0.00-0.10); IMMATURE GRAN PERCENT AUTO 1 % (0-1); LYMPHOCYTES ABSOLUTE AUTO 1.57 K/mm3 (0.84-5.20); LYMPHOCYTES PERCENT AUTO 9 % (21-46); MONOCYTES ABSOLUTE AUTO 1.42 K/mm3 (0.16-1.47); MONOCYTES PERCENT AUTO 8 % (4-13); Mean Corpuscular HGB 27.6 pg (26.0-34.0); Mean Corpuscular HGB Conc 31.7 g/dL (31.5-36.5); Mean Platelet Volume 9.4 fL (9.1-12.4); NEUTROPHILS PERCENT AUTO 82 % (41-73); Platelet Count 257 K/mm3 (150-400); RDW Coefficient Variation 13.8 % (11.7-14.2); RDW Standard Deviation 43.8 fL (35.1-46.3); Red Blood Cell Count 3.99 M/mm3 (3.80-5.20); White Blood Cell Count 18.33 K/mm3 (4.00-11.30)
[2019-01-18 03:52] LABS: Mean Corpuscular Volume 87 fL (80-100)
[2019-01-18 04:13] LABS: Alanine Aminotransfer (ALT/SGP 9 U/L (12-78); Albumin, Blood 1.5 g/dL (3.4-5.0); Albumin/Globulin Ratio 0.4 (0.8-1.8); Alk Phos 115 U/L (50-136); Anion Gap 7 mmol/L (6-16); Aspartate Aminotrans (AST/SGOT 14 U/L (12-37); Bilirubin, Total 0.5 mg/dL (0.1-1.0); Blood Urea Nitrogen 17 mg/dL (8-24); CO2, Blood 24 mmol/L (21-32); Calcium, Blood 9.5 mg/dL (8.5-10.1); Chloride, Blood 103 mmol/L (98-108); Creatinine, Blood 0.57 mg/dL (0.40-1.00); Globulin, Blood 4.1 g/dL (2.2-4.0); Glomerular Filtration Rate >60 (60-); Glucose, Blood 157 mg/dL (70-99); Potassium, Blood 3.8 mmol/L (3.5-5.5); Sodium, Blood 134 mmol/L (136-145); Total Protein, Blood 5.6 g/dL (6.4-8.2)
--- NOTE | 2019-01-18 04:51 | NUR ---
UPDATE PT REFUSED FLU VACCINE; PT REFUSED REPOSITIONING THROUGH NIGHT; REFUSED THIS AM; REFUSED TO ALLOW ASSESSMENT OF WOUNDS; YELLED AT THIS NURSE WHEN ATTEMTED TO LIFT BLANKET TO LOOK AT LEGS; WHEN EDUCATED AGAIN ABOUT NEED TO ASSESS AND REPOSITION PT YELLED "ABSOLUTELY NOT"; PT FORGETFUL/CONFUSED AT TIMES; FORGOT WITHIN AN HOUR CONVERSATION ABOUT MEDICATION; BLAMES STAFF FOR CHANGING TV CHANNEL; ACCUSES STAFF "DON'T KNOW WHAT YOU ARE DOING"; PALLIATIVE CARE CONSULT CALLED; WILL CONTINUE TO MONITOR;
--- NOTE | 2019-01-18 05:57 | NUR ---
UPDATE PT REFUSED TO ELEVATE HEAD OF BED; DISCUSSED NEED FOR CT ORDER WITH PT, PT IS REFUSING CT; DISCUSSED W/NICOLA FROM IMAGING
--- NOTE | 2019-01-18 08:30 | NUR ---
ASSUMED CARE PT ALERT AND ORIENTED TO SELF, SITUATION, AND PLACE. PT CONFUSED TO DATE AND TIME. VS STABLE. PT REFUSED TO LET THIS RN ASSESS WOUNDS. PT YELLING AT THIS RN FOR ATTEMPTING TO MOVE BLANKETS TO ASSESS LEGS WOUNDS. PT REFUSES ANY REPOSITIONING. PT EDUCATED ON THE IMPORTANCE OF REPOSITIONING AND MONITORING WOUNDS. PT STATES "I DON'T CARE ABOUT THEM, LEAVE ME ALONE". PT AGREES TO TAKE ORAL MEDS AND IV ANTIBIOTICS. PT REFUSES TO LET ME PUT THE HEAD OF BED UP WHILE EATNG BREAKFAST. PT EDUCATED ON ASPIRATION RISK. WILL CONTINUE TO MONITOR AND PROVIDE CARE THAT PT WILL ALLOW. CALL LIGHT IN REACH.
--- NOTE | 2019-01-18 14:23 | NUR ---
UPDATE PT TRANSFERRED TO MEDICAL FLOOR. BLANE MANSFIELD TO TAKE OVER CARE.
[2019-01-18 15:51] LABS: Vancomycin, Trough 22.2 ug/mL (5.0-10.0)
--- NOTE | 2019-01-18 18:39 | NUR ---
1430 PATIENT REFUSED TO HAVE VITALS TAKEN WHEN SHE ARRIVED TO FLOOR.
--- NOTE | 2019-01-18 18:40 | NUR ---
TRIED TO TAKE PATIENTS VITALS AGAIN AND SHE REFUSED AND STATED "NOT RIGHT NOW". RN WAS NOTIFIED.
--- NOTE | 2019-01-18 18:41 | NUR ---
PATIENT HAS REFUSED TO BE TURNED AND CHECKED SINCE BEING ON THIS FLOOR. PATIENT WILL NOT LET US MOVE HER OR CHANGE ATTENDS.
--- NOTE | 2019-01-18 19:33 | NUR ---
SHIFT SUMMARY- PT HAS DECLINED CARE FROM STAFF SINCE ARRIVAL ON MEDICAL FLOOR. PT DECLINED VITALS FROM THE VENEREAL DISEASE CONTROL HEAD WELL BLOOD SUGAR THIS EVENING. PT STATED SHE NEEDS TO HAVE A BM AT SHIFT CHANGE. NIGHT RN AWARE, PT REFUSES TO ALLOW STAFF TO ROLL HER AND DO WOUND CARE. SHE SCREAMS WHEN SHE IS MOVED EVEN A SMALL DISTANCE. PT WAS SEEN BY SURGERY BUT IS DECLINING THE I&D. PT USES ABRASIVE LANGUAGE REGULARLY STAFF SHOULD BE PREPARED.
--- NOTE | 2019-01-19 01:12 | NUR ---
01/18/191999 PT VERY RUDE AND DEMANDING TOWARDS STAFF. WOULD NOT LET RN TURN TO CHECK HERE WOUNDS. UNABLE TO DO COMPLETE ASSESSMENT.
--- NOTE | 2019-01-19 06:39 | NUR ---
01/19/19 0630 PT REFUSED AM MED, VITALS AND TURNING THIS SHIFT. OCC. WILL LET STAFF DO BLOOD SUGAR CHECKS AND GIVE SOME OF HER MEDS. PT VERY UNCOOPERATIVE WITH CARE AND CAN BE RUDE TOWARDS STAFF.
--- NOTE | 2019-01-19 07:45 | NUR ---
PATIENT REFUSED TO HAVE VITAL SIGNS TAKEN THIS MORNING. SHE STATED NO BLOOD PRESSURE AND THINGS TO ME WHEN I LET HER KNOW WHY I WAS IN THERE. RN WAS NOTIFIED. WILL TRY AGAIN LATER.
[2019-01-19 08:59] LABS: BASOPHILS ABSOLUTE AUTO 0.02 K/mm3 (0.00-0.23); BASOPHILS PERCENT AUTO 0 % (0-2); EOSINOPHILS ABSOLUTE AUTO 0.47 K/mm3 (0.00-0.68); EOSINOPHILS PERCENT AUTO 4 % (0-6); Hematocrit 32.4 % (33.0-51.0); Hemoglobin 10.4 g/dL (11.5-16.0); IMMATURE GRAN ABSOLUTE AUTO 0.15 K/mm3 (0.00-0.10); IMMATURE GRAN PERCENT AUTO 1 % (0-1); LYMPHOCYTES ABSOLUTE AUTO 1.02 K/mm3 (0.84-5.20); LYMPHOCYTES PERCENT AUTO 9 % (21-46); MONOCYTES ABSOLUTE AUTO 1.21 K/mm3 (0.16-1.47); MONOCYTES PERCENT AUTO 11 % (4-13); Mean Corpuscular HGB 28.1 pg (26.0-34.0); Mean Corpuscular HGB Conc 32.1 g/dL (31.5-36.5); Mean Corpuscular Volume 88 fL (80-100); Mean Platelet Volume 9.3 fL (9.1-12.4); NEUTROPHILS ABSOLUTE AUTO 8.52 K/mm3 (1.96-9.15); NEUTROPHILS PERCENT AUTO 75 % (41-73); Platelet Count 258 K/mm3 (150-400); RDW Coefficient Variation 13.6 % (11.7-14.2); RDW Standard Deviation 43.8 fL (35.1-46.3); White Blood Cell Count 11.39 K/mm3 (4.00-11.30)
[2019-01-19 09:21] LABS: Alanine Aminotransfer (ALT/SGP 12 U/L (12-78); Albumin, Blood 1.4 g/dL (3.4-5.0); Albumin/Globulin Ratio 0.4 (0.8-1.8); Alk Phos 98 U/L (50-136); Anion Gap 7 mmol/L (6-16); Aspartate Aminotrans (AST/SGOT 13 U/L (12-37); Bilirubin, Total 0.4 mg/dL (0.1-1.0); Blood Urea Nitrogen 9 mg/dL (8-24); Bun/Creatinine Ratio 18.5 (12.0-20.0); CO2, Blood 23 mmol/L (21-32); Calcium, Blood 8.9 mg/dL (8.5-10.1); Chloride, Blood 110 mmol/L (98-108); Creatinine, Blood 0.49 mg/dL (0.40-1.00); Globulin, Blood 3.9 g/dL (2.2-4.0); Glomerular Filtration Rate >60 (60-); Glucose, Blood 64 mg/dL (70-99); Potassium, Blood 3.4 mmol/L (3.5-5.5); Sodium, Blood 140 mmol/L (136-145); Total Protein, Blood 5.3 g/dL (6.4-8.2)
--- NOTE | 2019-01-19 13:45 | NUR ---
1115 PATIENT REFUSED TO HAVE CBG CHECKED BEFORE LUNCH THIS SHIFT. SHE STATED THAT WE JUST CHECKED IT AND WAS JUST IN HER ROOM. RN WAS NOTIFIED OF REFUSAL.
--- NOTE | 2019-01-19 17:23 | NUR ---
Met with patient she was very accomadating to our conversation. Since our last discussion pt appears more frail. She had some difficulty tracking conversation, repeated herself and did not remeber seeing the doctor. She is unsure about hospice but gave her a brief description. She states she would take home health if it kept her home. she is interested in finding a place out [facility] such as [place] to live in. Will need to contact her family for decision maker if she cannot speak for herself. Pt wanted a warm blanket and some rest. Will attetmpt a POLST with her before she discharges.
--- NOTE | 2019-01-19 17:28 | NUR ---
SHIFT SUMMARY: PT HAS BEEN A/O X 4 WITH ONGOING CHRONIC C/O PAIN TO BLE AND GENERALIZED ALL OVER BODY PAIN. SHE DECLINED THE MAJORITY OF HER HEAD TO TOE ASSESSMENT THIS MORNING BUT HAS BEEN ACCEPTING OF TAKING HER MEDS AND IV FLUIDS AND ABO ORDERED. DR GALLEGOS SAW PT TODAY AND GAVE ORDERS FOR WOUND CARE. PT AGREED TO HAVE HER WOUNDS CLEANSED AND DRESSED ORDERED. PT WAS MEDICATED FOR PAIN. PT WOUND TO HER COCCYX WAS CLEANSED AND A DRY FOAM DRESSING WAS APPLIED. SURROUNDING SKIN WAS CLEANSED AND ALL LINENS WERE CHANGED. WOUNDS TO BLE WERE ALSO CLEANSED ORDERED AND KERLIX GAUZE STRIPS WERE PLACED ON WOUNDS. PT REQUESTED TO GO HOME AFTER DRESSING CHANGES WERE COMPLETED. DC ORDERS WERE RECEIVED FROM DR ELMORE AND CASE MANAGEMENT SPOKW WITH PT CAREGIVER, ALEXANDRIA WHO REPORTS THAT SHE WILL BE AT PT HOUSE WHEN SHE ARRIVES. PT IS AWARE OF HER DISCHARGE PLAN AND AGREES. SHE IS RESTING IN BED EATING DINNER.
[2019-01-19] MEDS ORDERED: Culturelle1 CAP PO (17:54)
[2019-01-19] MEDS ORDERED: AMOCLA875 PO (17:55)
--- NOTE | 2019-01-19 18:32 | NUR ---
PT DCD HOME WITH CAREGIVER ALEXANDRIA VIA [facility]. ALL RX FAXED TO PHARMACY OF HER CHOICE. RX AND INSTRUCTIONS REVIEWED WITH PT WHO VERBALIZED AN UNDERSTANDING. ALL PERSONAL BELONGINGS SENT WITH PT. IV REMOVED WITH NO ISSUE.PT STABLE UPON DC.
== END 2019-01-19 18:32 | disposition home health service (06) | DRG 871 ==
LOC: ER 14:18 → PCU 17:30 → MEDS 01-18 14:07
PROVIDERS: Internal Medicine; ADMIT Family Medicine
DX: A41.02 Sepsis due to Methicillin resistant Staphylococcus aureus (principal); E43 Unspecified severe protein-calorie malnutrition; R65.21 Severe sepsis with septic shock; E87.1 Hypo-osmolality and hyponatremia; L03.116 Cellulitis of left lower limb; L03.115 Cellulitis of right lower limb; Z68.42 Body mass index [BMI] 45.0-49.9, adult; E66.2 Morbid (severe) obesity with alveolar hypoventilation; Z16.21 Resistance to vancomycin; L89.159 Pressure ulcer of sacral region, unspecified stage; J44.9 Chronic obstructive pulmonary disease, unspecified; E03.9 Hypothyroidism, unspecified; E11.9 Type 2 diabetes mellitus without complications; I50.9 Heart failure, unspecified; I11.0 Hypertensive heart disease with heart failure; K58.9 Irritable bowel syndrome, unspecified; E78.5 Hyperlipidemia, unspecified; Z74.01 Bed confinement status; Z91.14 Patient's other noncompliance with medication regimen; Z86.73 Personal history of transient ischemic attack (TIA), and cerebral infarction without residual deficits; Z79.82 Long term (current) use of aspirin; Z79.4 Long term (current) use of insulin; Z79.51 Long term (current) use of inhaled steroids
CPT/HCPCS: 36415; 51702; 80053; 80202; 81001; 82947; 83605; 84134; 85025; 85610; 85730; 86140; 87070; 87075; 87077; 87086; 87147; 87186; 87205; 94640; 94760; 96365; 96375; 99285-25; J2543; J3010; J3370; J3480; J7030; J7050; J7120